=== PATIENT | female | born 1970 | race Caucasian/White ===

== ENCOUNTER 2016-11-07 17:15 | Outpatient (CLI) | payer MEDICAID ==
[~2016-11-07 17:15] MED LIST: ADVIL200 MG PO; ALBUTEROL-200 PUFFS/ IH; ALBUTEROL2 PUFFS/17 IN; ALBUTEROL2.5 MG/NEB IN; ALDACTONE 50MG50 MG PO; ALDACTONE100 MG PO; ALDACTONE50 MG PO; AQUATAB C 60 MG1 TER PO; ATIVAN GENERIC0.5 MG PO; ATIVAN0.5 MG PO; ATIVAN1 MG PO; AUGMENTIN XR 101 TER PO; AVELOX400 MG PO; BACTRIM DS 8001 TA1 PO; BACTRIM DS 8001 TAB PO; BENADRYL 25MG C25 MG PO; BENTYL10 MG PO; CALCARB 600600 MG PO; CALCIUM ACETATE 667 MG PO; CARAFATE1 GM PO; CIPRO 500MG TA500 MG PO; CIPROFLOXACIN500 MG PO; Ciprofloxacin250 MG OR; DARVOCET-N 1001 EACH PO; DARVOCET-N6 EACH/PAK PO; DITROPAN 5MG TAB5 MG PO; DOCUSATE NA250 MG PO; DOXYCYCLINE HY100 M3 PO; DULCOLAX 1010 MG/SUP PR; FENTANYL 1100 MCG/E1 TD; FLEXERIL10 MG PO; FOLIC ACID 1MG T1 MG PO; HALDOL 1MG. TABL1 MG PO; HALOPERIDOL1 MG PO; HYOSCYAMINE0.125 M1 FT; IBUPROFEN 600M600 MG PO; K-DUR 2020 MEQ PO; K-DUR 20MEQ TA20 MEQ PO; KEPPRA 500 MG500 MG PO; KEPPRA1000 MG PO; KEPPRA500 MG PO; KLONOPIN1 MG PO; LACTULOSE20 GM/30 M PO; LASIX 40MG. TAB40 MG PO; LASIX40 MG PO; LEVAQUIN500 MG PO; LEVETIRACETAM500 M2 PO; LEVOTHYROXIN0.025 MG PO; LORTAB 5/500 501 TAB PO; MACROBID 100MG100 MG PO; MAG-OX 400400 MG PO; MAG-OX 400MG T400 MG PO; MAGNESIUM400 M1 PO; MEDROL 4MG. DOSE4 MG PO; MORPHINE PO; MORPHINE SUL20 MG/ML PO; MORPHINE SUL20 MG/ML SL; MORPHINE SULFAT15 MG PO; MUCINEX600 M1 PO; MULTI VITAMINS1 TAB PO; NAPROSYN 500MG500 MG PO; NEUTRA-PHOS1 PDR; NEXIUM20 MG PO; NYSTATIN SU60 ML/BOT PO; OXAZEPAM 15MG C15 MG PO; OXYCODONE 5MG TA5 MG PO; PEPCID20 MG PO; PERCOCET 5/3251 EACH PO; PHENERGAN 25MG.25 M1 PO; PHENERGAN 25MG.25 MG PR; PHENERGAN25 M3 PO; POTASSIUM CHLO10 ME3 PO; POTASSIUM CHLO20 ME2 PO; POTASSIUM1 PDS; PROTONIX 40MG T40 MG PO; PROZAC40 MG PO; REMERON15 MG PO; RISPERDAL 1 MG T1 MG PO; TESSALON PERLE100 M1 PO; THIAMINE 100MG100 MG PO; TOPAMAX100 MG PO; TRENTAL 400MG400 MG PO; TYLENOL ES500 MG PO; ULTRAM50 MG PO; VICOPROFEN 7.51 TAB PO; VITAMIN B-1100 MG PO; XANAX2 MG PO; XIFAXAN550 MG PO; Xanax0.25 MG PO; ZANTAC 7575 MG PO; ZITHROMAX Z-PA250 M2 PO; ZOFRAN ODT4 MG PO; ZOFRAN4 MG; ZOFRAN4 MG PO; Zofran4 MG PO
[2016-11-07 18:00] VITALS: BP 106/71
[2016-11-07 22:10] VITALS: BP 116/95
== END 2016-11-07 22:35 | disposition home or self-care (01) ==
LOC: OUTP 17:15
DX: K70.30 Alcoholic cirrhosis of liver without ascites (principal); E87.6 Hypokalemia; F11.20 Opioid dependence, uncomplicated

== ENCOUNTER → 2016-11-08 | Outpatient (CLI) | payer MEDICAID ==
[2016-11-08 10:15] VITALS: BP 103/62
== END ==
LOC: COP 09:53
DX: E87.6 Hypokalemia (principal); K70.30 Alcoholic cirrhosis of liver without ascites; F11.20 Opioid dependence, uncomplicated

== ENCOUNTER → 2016-11-09 | Outpatient (CLI) | payer MEDICAID ==
[~2016-11-09] VITALS: Ht 157.5 cm; Wt 49.9 kg
[2016-11-09 10:15] VITALS: BP 98/64
[2016-11-09 12:30] VITALS: BP 90/60
[2016-11-09 15:13] VITALS: BP 86/62
== END ==
LOC: COP 09:57
DX: E87.6 Hypokalemia (principal); K70.30 Alcoholic cirrhosis of liver without ascites; F11.20 Opioid dependence, uncomplicated

== ENCOUNTER → 2016-11-10 | Outpatient (CLI) | payer MEDICAID ==
[2016-11-10 13:06] LABS: BUN 3 mg/dL (7-18)
[2016-11-10 13:13] LABS: GFR (ESTIMATED) 107 ML/MIN (59-)
== END ==
LOC: LAB 10:41
PROVIDERS: Nurse Practitioner Acute Care
DX: E87.6 Hypokalemia (principal); K70.30 Alcoholic cirrhosis of liver without ascites; F11.20 Opioid dependence, uncomplicated

== ENCOUNTER 2017-04-01 06:12 | Emergency (ER) | payer MEDICAID ==
[~2017-04-01] VITALS: Ht 157.5 cm; Wt 49.9 kg
--- NOTE | 2017-04-01 06:25 | Emergency Room Report ---
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 N Clinical Suspician of Infection? N Mental Status: 1 - Regular (Normal Baseline) Sepsis Risk:Possible Sepsis Risk Have you (or family members/close friends) recently traveled outside the [place]? N If Yes, where/when: Have you had exposure to infectious disease within the past month? N TB? Other? Specify: Source patient, RN notes reviewed, EMS, old records Exam Limitations no limitations Comment trip type fall last pm with lt knee pain and swelling and dec wt bearing this am Cardiac Chest Pain Chest pain indicative of cardiac No Timing/Duration this evening Severity moderate ALLERGIES Coded Allergies: Penicillins (NA-NAUSEA/VOMITING 05/21/16) butorphanol (From STADOL) (HIVES/ITCHING 05/21/16) codeine (NA-NAUSEA/VOMITING 05/21/16) Home Medications Active Scripts Levetiracetam (Keppra 500 Mg Tablet) 500 MG PO BID #20 TAB Prov: 02/07/14 Reported Medications Topiramate (Topamax) 50 MG PO QHS Furosemide (Lasix 40MG) 40 MG PO BID Spironolactone (Aldactone 100MG) 100 MG PO BID Fluoxetine Hcl (Prozac) 60 MG PO DAILY Potassium Chloride (K-Dur) 20 MEQ PO BID History Medical History General CAD? No Angina: Yes [place]: Yes Hypertension? No Hyperlipidemia? No CHF? Yes DVT? No PE? No COPD? No Asthma? No Anemia? Yes GERD? No Gastric ulcers? No GI Bleed? No Hernia? Yes Thyroid Problems? No Hypothyroidism? No CVA? No Seizures? Yes Diabetes? No Insulin Dependent: No Insulin Pump: No Home FSBS? No Renal Insuffiency? No End Stage Renal Disease? No UTI? Yes Stones? Yes BPH? No GB Disease: Yes Nephritic Syndrome? No Asplenia? No Hepatitis? Yes Sickle Cell Disease? No Arthritis? Yes Migraines? No Cataracts? No Glaucoma? No MRSA? No HIV? No TB? No Anxiety? Yes Depression? Yes Cancer? No More? Yes Additional hx: CIRRHOSIS OF THE LIVER Immunization Hx DT/Tetanus Unknown Flu 07/03/15 Pneumonia Received In Past Surgical Hx Previous Surgery?Y L OOPHERECTOMY S/P UTERINE SCRAPING X 2 LIVER BIOPSY ABLATION OF UTERUS. 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 Respiratory denies cough, denies shortness of breath, denies wheezing Cardiovascular denies chest pain, denies syncope Gastrointestinal denies abdominal pain, denies diarrhea, denies vomiting Genitourinary denies: dysuria, frequency, hesitancy, hematuria. Musculoskeletal denies back pain, joint pain, joint swelling, denies neck pain Skin denies rash Psychiatric/Neurological denies headache, denies seizure Physical Exam Vital Signs Vital Signs Date Time Temp Pulse Resp B/P Pulse O2 O2 Flow FiO2 Ox Delivery Rate 04/01 0706 93 20 104/74 96 / 0615 98.5 99 20 104/74 94 - WBC >12,000 or <4,000 or 10% bands? 2 or more SIRS Criteria Met? B/P:104/74 MAP:84 Creatinine >2.0? UA output<0.5ml/kg/hr for 2 hrs? Platelet count >100,000? Lactate >2.0mmol/1? INR >1.2 or PTT > than 60 sec? Evidence of Organ Dysfunction? Provider documented clinical suspician of infection? N Sepsis Criteria Count: 2 Sepsis Risk: Possible Sepsis Risk General Appearance no apparent distress Eye Exam - bilateral eye PERRL, bilateral eye EOMI Ear, Nose, Throat normal ENT inspection Neck supple Respiratory Status No: respiratory distress. 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 No Results/Orders Orders Procedure Date/time Status PELVIS AP ONLY 04/01 617 Active KNEE-3 VIEWS-LT 04/01 617 Active XRAY/CT/US XRAY/CT/US XRAY knee, pelvis XR interpretation by reviewed by me Xray Results no fracture seen Departure Departure Time of Disposition 06 Disposition DC Home or Self Care(routine) Clinical Impression Primary Impression: Left knee sprain Qualifiers: Encounter type: initial encounter Involved ligament of knee: unspecified ligament Qualified Code: S83.92XA - Sprain of unspecified site of left knee, initial encounter Condition STABLE Referrals Armando Villa MD (Family) Patient Instructions DI for Knee Sprain Additional Instructions ice and see pcp for follow up Discharge Counseling Counseled pt/family regarding diagnosis, test results, medications/RX, follow up needs Prescriptions Current Visit Scripts HYDROCODONE/ACETAMINOPHEN ([place] 5-325 Tablet) 1 TAB PO Q6HP PRN pain #5 TAB ED Critical Care Critical Care No at 0750
--- NOTE | 2017-04-01 06:25 | Emergency Room Report ---
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 N Clinical Suspician of Infection? N Mental Status: 1 - Regular (Normal Baseline) Sepsis Risk:Possible Sepsis Risk Have you (or family members/close friends) recently traveled outside the [place]? N If Yes, where/when: Have you had exposure to infectious disease within the past month? N TB? Other? Specify: Source patient, RN notes reviewed, EMS, old records Exam Limitations no limitations Comment trip type fall last pm with lt knee pain and swelling and dec wt bearing this am Cardiac Chest Pain Chest pain indicative of cardiac No Timing/Duration this evening Severity moderate ALLERGIES Coded Allergies: Penicillins (NA-NAUSEA/VOMITING 05/21/16) butorphanol (From STADOL) (HIVES/ITCHING 05/21/16) codeine (NA-NAUSEA/VOMITING 05/21/16) Home Medications Active Scripts Levetiracetam (Keppra 500 Mg Tablet) 500 MG PO BID #20 TAB Prov: 02/07/14 Reported Medications Topiramate (Topamax) 50 MG PO QHS Furosemide (Lasix 40MG) 40 MG PO BID Spironolactone (Aldactone 100MG) 100 MG PO BID Fluoxetine Hcl (Prozac) 60 MG PO DAILY Potassium Chloride (K-Dur) 20 MEQ PO BID History Medical History General CAD? No Angina: Yes [place]: Yes Hypertension? No Hyperlipidemia? No CHF? Yes DVT? No PE? No COPD? No Asthma? No Anemia? Yes GERD? No Gastric ulcers? No GI Bleed? No Hernia? Yes Thyroid Problems? No Hypothyroidism? No CVA? No Seizures? Yes Diabetes? No Insulin Dependent: No Insulin Pump: No Home FSBS? No Renal Insuffiency? No End Stage Renal Disease? No UTI? Yes Stones? Yes BPH? No GB Disease: Yes Nephritic Syndrome? No Asplenia? No Hepatitis? Yes Sickle Cell Disease? No Arthritis? Yes Migraines? No Cataracts? No Glaucoma? No MRSA? No HIV? No TB? No Anxiety? Yes Depression? Yes Cancer? No More? Yes Additional hx: CIRRHOSIS OF THE LIVER Immunization Hx DT/Tetanus Unknown Flu 07/03/15 Pneumonia Received In Past Surgical Hx Previous Surgery?Y L OOPHERECTOMY S/P UTERINE SCRAPING X 2 LIVER BIOPSY ABLATION OF UTERUS. 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 Respiratory denies cough, denies shortness of breath, denies wheezing Cardiovascular denies chest pain, denies syncope Gastrointestinal denies abdominal pain, denies diarrhea, denies vomiting Genitourinary denies: dysuria, frequency, hesitancy, hematuria. Musculoskeletal denies back pain, joint pain, joint swelling, denies neck pain Skin denies rash Psychiatric/Neurological denies headache, denies seizure Physical Exam Vital Signs Vital Signs Date Time Temp Pulse Resp B/P Pulse O2 O2 Flow FiO2 Ox Delivery Rate 04/01 0706 93 20 104/74 96 / 0615 98.5 99 20 104/74 94 - WBC >12,000 or <4,000 or 10% bands? 2 or more SIRS Criteria Met? B/P:104/74 MAP:84 Creatinine >2.0? UA output<0.5ml/kg/hr for 2 hrs? Platelet count >100,000? Lactate >2.0mmol/1? INR >1.2 or PTT > than 60 sec? Evidence of Organ Dysfunction? Provider documented clinical suspician of infection? N Sepsis Criteria Count: 2 Sepsis Risk: Possible Sepsis Risk General Appearance no apparent distress Eye Exam - bilateral eye PERRL, bilateral eye EOMI Ear, Nose, Throat normal ENT inspection Neck supple Respiratory Status No: respiratory distress. 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 No Results/Orders Orders Procedure Date/time Status PELVIS AP ONLY 04/01 617 Active KNEE-3 VIEWS-LT 04/01 617 Active XRAY/CT/US XRAY/CT/US XRAY knee, pelvis XR interpretation by reviewed by me Xray Results no fracture seen Departure Departure Time of Disposition 06 Disposition DC Home or Self Care(routine) Clinical Impression Primary Impression: Left knee sprain Qualifiers: Encounter type: initial encounter Involved ligament of knee: unspecified ligament Qualified Code: S83.92XA - Sprain of unspecified site of left knee, initial encounter Condition STABLE Referrals Armando Villa MD (Family) Patient Instructions DI for Knee Sprain Additional Instructions ice and see pcp for follow up Discharge Counseling Counseled pt/family regarding diagnosis, test results, medications/RX, follow up needs Prescriptions Current Visit Scripts HYDROCODONE/ACETAMINOPHEN ([place] 5-325 Tablet) 1 TAB PO Q6HP PRN pain #5 TAB ED Critical Care Critical Care No at 0750
--- OUTSIDE RECORDS SUMMARY | 2017-04-01 06:30 | External Medical Summary Rpt ---
Author Author [employer] Organization [employer] Address Unknown Phone Unavailable Purpose Continuity of Care Document - through 2016
--- OUTSIDE RECORDS SUMMARY | 2017-04-01 06:43 | External Medical Summary Rpt ---
Author Author , Organization [employer] Address Unknown Phone Unavailable Care Team Providers Care Senior Radiation Therapist Name Role Phone AIR METHODS KENT, Unavailable Unavailable AIR METHODS AIR METHODS KENT, Unavailable Unavailable AIR METHODS ALFARIS MOH, ALFARIS Unavailable Unavailable MOH ALFARIS MOH, ALFARIS Unavailable Unavailable MOH [facility] Unavailable Unavailable RESPONSE, [facility]ON[facility] Unavailable Unavailable RESPONSE, [facility] DEE GABRIELA, DEE Unavailable Unavailable GABRIELA BIRMING[place]AM TAMMY, B[place]MING[place]AM TAMMY Unavailable Unavailable DIAZ BRO, DIAZ Unavailable Unavailable BRO THOMAS TER, THOMAS Unavailable Unavailable TER THOMAS TER, THOMAS Unavailable Unavailable TER FRANK FRA, FRANK Unavailable Unavailable FRA FRANK FRA, FRANK Unavailable Unavailable FRA BEINEKE JERICHO, BEINEKE Unavailable Unavailable JERICHO BENSALEM-SIENNA BINA, Unavailable Unavailable BENSALEM-SIENNA BINA BESSON CHARLES, BESSON Unavailable Unavailable CHARLES BESSON CHARLES, BESSON Unavailable Unavailable CHARLES [facility] Unavailable Unavailable [facility], [facility] MUNOZ ALL, MUNOZ ALL Unavailable Unavailable [facility] Unavailable Unavailable [facility] [place] Unavailable Unavailable [facility] Unavailable Unavailable SERVICE, [facility] Unavailable Unavailable SERVICE, [facility] LEÓN KET, LEÓN KET Unavailable Unavailable LEÓN KET, LEÓN KET Unavailable Unavailable GREEN CAR, GREEN Unavailable Unavailable CAR [facility] Unavailable [facility], [facility] JR. NERI EMERY, Unavailable Unavailable JR. NERI EMERY JR. CHA, Unavailable Unavailable JR. NERI EMERY [facility] Unavailable Unavailable [facility], [facility] Unavailable Unavailable [facility], [facility] Unavailable Unavailable [facility], [facility] Unavailable Unavailable [facility], [facility] DHARMESH GRE, DHARMESH Unavailable Unavailable GRE DHARMESH GRE, DHARMESH Unavailable Unavailable GRE SLADE LAUREN, Unavailable Unavailable SLADE LAUREN SLADE LAUREN, Unavailable Unavailable SLADE LAUREN SLADE, MANGO, Unavailable Unavailable SLADE, MANGO DISANTIS CALVIN, Unavailable Unavailable DISANTIS CALVIN DISANTIS CALVIN, Unavailable Unavailable DISANTIS CAL[facility] DONOVITZ JAM, Unavailable Unavailable DONOVITZ JAM DONOVITZ JAM, Unavailable Unavailable DONOVITZ JAM DELEON CHARU, DELEON CHARU Unavailable Unavailable [facility] [place] [facility] ECKERLINE JR NERI, Unavailable Unavailable ECKERLINE JR NERI FALLUJI XAVIER, FALLUJI Unavailable Unavailable XAVIER [facility] Unavailable Unavailable TRANSPORTATION SER, [facility] ZION REJI, Unavailable Unavailable ZION REJI ZION REJI, Unavailable Unavailable ZION REJI MAKI, III WHIT, Unavailable Unavailable MAKI, III WHIT MAKI, III WHIT, Unavailable Unavailable MAKI, III WHIT EATON MAR, EATON MAR Unavailable Unavailable ARNULFO GUSTAVO, ARNULFO Unavailable Unavailable GUSTAVO ARNULFO, AMIRA S, Unavailable Unavailable ARNULFO, AMIRA S SHANIKA JETT, SHANIKA Unavailable Unavailable JETT SHANIKA JETT, SHANIKA Unavailable Unavailable JETT GERHARDSTEIN DON, Unavailable Unavailable GERHARDSTEIN DON ANYA, RONDAL E, Unavailable Unavailable ANYA, RONDAL E NANDO GUSTAVO, NANDO GUSTAVO Unavailable Unavailable PEREZ NA, PEREZ NA Unavailable Unavailable [facility] Unavailable Unavailable [facility] Unavailable Unavailable INC, [facility] Unavailable Unavailable HOSPITAL P, [facility] P NELSY, VICKI, NELSY, Unavailable Unavailable VICKI [facility], Unavailable Unavailable [facility] Unavailable [place]available [place], [facility] RAKESH MELVIN, RAKESH MELVIN Unavailable Unavailable ESCUDERO MAE, ESCUDERO MAE Unavailable Unavailable DEUTSCH MARTA, DEUTSCH Unavailable Unavailable MARTA [facility] ARTURO NICA, ARTURO Unavailable Unavailable NICA ARTURO NICA, ARTURO Unavailable Unavailable NICA ALBRECHT GUL, ALBRECHT GUL Unavailable Unavailable AMARJIT YANELY, AMARJIT YANELY Unavailable Unavailable AMARJIT YANELY, AMARJIT YANELY Unavailable [facility]available [facility] ROSE ASHU, ROSE ASHU Unavailable Unavailable ROSE ASHU, ROSE ASHU Unavailable Unavailable IBRAHIMA DWI, IBRAHIMA DWI Unavailable Unavailable IBRAHIMA JR DWI, IBRAHIMA Unavailable Unavailable JR DWI IBRAHIMA JR DWI, IBRAHIMA Unavailable Unavailable JR DWI [facility] Unavailable Unavailable [facility], [facility] JEREMIAS ART, JEREMIAS Unavailable Unavailable ART ROGER PETEY, Unavailable Unavailable ROGER PETEY ROGER PETEY, Unavailable Unavailable ROGER PETEY [facility] Unavailable Unavailable SERVICES, [facility] AUDRAMINatalie JR WHIT, Unavailable Unavailable MCKEMIE JR WHIT MCKEMIE JR WHIT, Unavailable Unavailable MCKEMIE JR WHIT MERHAR GAR, MERHAR Unavailable Unavailable GAR TUCKER KATHERIN, TUCKER Unavailable Unavailable KATHERIN TUCKER, TAZ P, Unavailable Unavailable TUCKER, TAZ P TAYLOR SHAWANDA, TAYLOR SHAWANDA Unavailable Unavailable TAYLOR SHAWANDA, TAYLOR SHAWANDA Unavailable Unavailable SHERYL KWA, SHERYL KWA Unavailable Unavailable SHERYL KWA, SHERYL KWA Unavailable [facility]available [facility] Un[facility]available PLL[facility], [facility] WINTER MCKENZIE, WINTER MCKENZIE Unavailable Unavailable WINTER MCKENZIE, WINTER MCKENZIE Unavailable [facility]available [facility] Unavailable Unavailable LAB[facility] MYRON GIANCARLO, Unavailable Unavailable MYRON GIANCARLO MYRON GIANCARLO, Unavailable Unavailable MYRON GIANCARLO CHEEMA AREN, CHEEMA AREN Unavailable Unavailable CHEEMA AREN, CHEEMA AREN Unavailable Unavailable KEYLA CALVIN, KEYLA Unavailable Unavailable CALVIN RICE THO, RICE THO Unavailable Unavailable BERLIN SHANEL, BERLIN Unavailable Unavailable SHANEL ECHAVARRIA, Unavailable Unavailable BHARATI ECHAVARRIA, Unavailable Unavailable BHARATI ECHAVARRIA [id number], Unavailable Unavailable [id number] Unavailable Unavailable [id number] [address] [id number], [facility] [id number] [address] [id number] RUSCHMAN DIANE, Unavailable Unavailable RUSCHMAN DIANE SADEK MOH, SADEK MOH Unavailable Unavailable DIAMOND WHIT, DIAMOND Unavailable Unavailable WHIT DIAMOND WHIT, DIAMOND Unavailable Unavailable WHIT PINO CHARLES, Unavailable Unavailable PINO CHARLES SCHULSTAD, ANA, Unavailable Unavailable SCHULSTAD, ANA GENARO DAVE, GENARO Unavailable Unavailable DAVE GENARO DAVE, GENARO Unavailable Unavailable DAVE GOMEZ J, GOMEZ J Unavailable Unavailable NGUYEN LAUREN, NGUYEN LAUREN Unavailable Unavailable SOKAN BAB, SOKAN BAB Unavailable Unavailable LIZETH ANTHONY, LIZETH Unavailable Unavailable ANTHONY [facility] Un[facility], [facility] Unavailable Unavailable [facility], [facility] SOTINGEANU JERICHO, Unavailable Unavailable SOTINGEANU JERICHO FIORDALIZA GABRIELA, FIORDALIZA Unavailable Unavailable GABRIELA GUILLERMO DARRYL, GUILLERMO Unavailable Unavailable DARRYL GUILLERMO DARRYL, GUILLERMO Unavailable Unavailable DARRYL COLLIER DON, Unavailable Unavailable COLLIER DON COLLIER DON, Unavailable Unavailable COLLIER DON COLLIER, DON R, Unavailable Unavailable COLLIER, DON R SALCEDO SCO, SALCEDO Unavailable Unavailable SCO SYMPHONY MOBILEX, Unavailable Unavailable SYMPHONY MOBILEX DIGNA MAR, Unavailable Unavailable SZHADLEYIO CATRACHO WYATT DEBBIE, EDMUNDO Unavailable Unavailable DEBBIE SURYA NERI, SURYA NERI Unavailable Unavailable CLARISSE NICOLE, CLARISSE Unavailable Unavailable NICOLE ANNIA JR JAM, ANNIA Unavailable Unavailable JR JAM HERMINIA STARK, Unavailable Unavailable HERMINIA STARK [facility] Un[facility]available [place] Unavailable Unavailable PSYCH, [facility] VILLARAN YUR, Unavailable Unavailable VILLARAN YUR VILLARAN YUR, Unavailable Unavailable VILLARAN YUR [facility] Unavailable Unavailable #[id number], [facility] # Unavailable Unavailable [id number], [facility] # [id number] WEHRMAN III WHIT, Unavailable Unavailable WEHRMAN III WHIT WEHRMAN III WHIT, Unavailable Unavailable WEHRMAN III WHIT WEHRMAN IIITAMARA, Unavailable Unavailable WEHRMAN III, TAMARA OCASIO, CARMEN OCASIO Unavailable Unavailable [facility] Unavailable Unavailable [facility], [facility] Unavailable Unavailable BOY IV A, Unavailable Unavailable BOY IV A LUCY GUSTAVO, LUCY Unavailable Unavailable GUSTAVO LUCY GUSTAVO, LUCY Unavailable Unavailable GUSTAVO Purpose Continuity of Care Document - 01-06-2008 through 2016 Problems Code Diagnosis DOS Provider Status I509 HEART 02-09-2017 [facility] FAILURE HOME UNSPECIFIED MEDICAL EQUIPME E876 HYPOKALEMIA 11-24-2016 [facility] K921 MELENA 07-11-2016 [facility] R1013 EPIGASTRIC 07-11-2016 [facility] R102 PELVIC AND 07-11-2016 [place] [facility]AL [facility] L509 URTICARIA 06-12-2016 [facility] UNSPECIFIED HOME MEDICAL EQUIPME I8500 ESOPHAGEAL 05-21-2016 [facility] VARICES ANESTH OF WITHOUT THE BLUE BLEEDING K3189 OTHER 05-21-2016 [place] MEDICAL DISEASES OF SERV STOMACH FOUNDATION AND DUODENUM K766 PORTAL 05-21-2016 [facility] HYPERTENSIO [facility] N INC R47370 EPILEPSY 04-22-2016 [facility] UNS NOT MEM HOSP INTRACT W/O INC STATUS EPILEPTICUS I864 GASTRIC 04-22-2016 [facility] VARICES [facility] N200 CALCULUS OF 04-22-2016 [facility] KIDNEY [facility] N3000 ACUTE 04-22-2016 [facility] CYSTITIS [facility] WITHOUT INC HEMATURIA R1012 LEFT UPPER 04-22-2016 [facility] PAIN PLLC G894 CHRONIC 03-26-2016 [facility]IN [facility] SYNDROME INTERNAL MED K5902 OUTLET 03-26-2016 [facility] DYSFUNCTION [facility] INTERNAL CONSTIPATIO MED N R69 ILLNESS 03-19-2016 [facility] UNSPECIFIED TRANSPORTAT ION SER F1022 ALCOHOL 03-14-2016 [facility] WITH PSYCH INTOXICATIO N I8510 SECONDARY 03-14-2016 [facility] ESOPHAGEAL [facility] HOSP VARICES PSYCH WITHOUT BLEEDING O34987 PAIN IN 03-14-2016 [place] UNSPECIFIED MEDICAL HIP IMAGING ASS J91551 PAIN IN 03-14-2016 [place] MEDICAL LEFT LEG SERV FOUNDATION R079 CHEST PAIN 03-14-2016 [place] UNSPECIFIED [facility]ICAL IMAGING ASS [id number] UNSPECIFIED 03-14-2016 [place] INJURY OF MEDICAL PELVIS IMAGING ASS INITIAL ENCOUNTER C0561BT UNS INJURY 03-14-2016 [place] MEDICAL LT LOWER SERV LEG INITIAL FOUNDATION ENCOUNTER T07 UNSPECIFIED 03-14-2016 AIR [facility] MULTIPLE [place] INJURIES K142XAB FALL FROM 03-14-2016 AIR [facility] OUT [place] OF/THROUGH BRIDGE INITIAL ENCNTR F50MOYC OTHER SPEC 03-14-2016 [place] MEDICAL EVENTS SERV UNDETERMINE [facility] D INTENT INIT ENC Z043 ENCOUNTER 03-14-2016 [place] MEDICAL EXAM & SERV OBSERVATION FOUNDATION FOLLOW OTH ACCIDENT R110 NAUSEA 02-16-2016 [facility] E860 DEHYDRATION 02-12-2016 [facility], [facility] K5289 OTH SPEC 02-12-2016 [facility] NONINFECTIV [facility]IANS, E [facility] GASTROENTER ITIS & COLITIS R109 UNSPECIFIED 02-12-2016 [facility] ABDOMINAL [facility] PAIN INTERNAL MED R1110 VOMITING 02-12-2016 [facility] ASS R112 NAUSEA WITH 02-12-2016 [facility] VOMITING [facility], UNSPECIFIED [facility] R197 DIARRHEA 02-12-2016 [facility] UNSPECIFIED AMBULANCE SERVICE R4182 ALTERED 02-12-2016 [facility] MENTAL [facility] STATUS INTERNAL UNSPECIFIED MED R0789 OTHER CHEST 01-02-2016 [facility] PAIN [facility]ICAL IM[facility] ASS R569 UNSPECIFIED 09-26-2015 [facility], CONVULSIONS [facility] M549 DORSALGIA 07-30-2015 [facility] UNSPECIFIED [place] INTERNAL MED N12 TUBULO-INTE 07-30-2015 [facility] RST [place] NEPHRITIS INTERNAL NOT SPEC MED ACUTE/CHRON J320 CHRONIC 07-21-2015 [place] MAXILLARY MEDICAL SINUSITIS IMAGING ASS J984 OTHER 07-21-2015 [place] DISORDERS MEDICAL OF LUNG IMAGING ASS S605LMW FRACTURE 07-21-2015 [facility] NASAL B[facility]ES [facility], INITIAL PLLC ENCOUNTER CLOSED FX S2457LE UNSPECIFIED 07-21-2015 [facility] INJURY OF PHYSICIANS, NOSE PLLC INITIAL ENCOUNTER E8279ZK MX FX RIBS 07-02-2015 [place] RT SIDE MEDICAL SUBSEQUENT IMAGING ASS ENC FX W/RTN HLNG [id number] UNDERDOS 07-02-2015 [facility] UNS RX MEDS [facility] P SUBSTANCE INITIAL ENC Z9111 PATIENTS 07-02-2015 [facility] NONCOMPLIAN [place] CE WITH INTERNAL DIETARY MED REGIMEN E15337 PT 07-02-2015 [facility] P MED REGIMEN OTH REASON J189 PNEUMONIA 06-30-2015 [facility] UNSPECIFIED PHYSICIANS, ORGANISM [facility] R05 COUGH 06-30-2015 [facility] 4280 CONGESTIVE 06-12-2015 [facility] HEART HOME FAILURE MEDICAL UNSPECIFIED EQUIPME 38237 OTHER 02-08-2015 [facility] CONVULSIONS AMBULANCE SERVICE 39150 NAUSEA 02-08-2015 [facility] ALONE AMBULANCE SERVICE 7245 UNSPECIFIED 01-28-2015 [facility] BACKACHE AMBULANCE SERVICE 32218 ABDOMINAL 01-28-2015 [facility] PAIN OTHER AMBULANCE SPECIFIED SERVICE SITE 18303 UNSPECIFIED 01-12-2015 [facility] OF VULVA 412 OLD 01-11-2015 [place] MEDICAL MYOCARDIAL SERV INFARCTION [facility] 7852 UNDIAGNOSED 01-11-2015 [place] MEDICAL CARDIAC SERV MURMURS [facility] 45730 SHORTNESS 01-11-2015 [place] MEDICAL OF BREATH SERV [facility] 6238 OTHER 01-10-2015 [place] SPECIFIED MEDICAL NONINFLAMMA IMAGING ASS TORY DISORDER VAGINA 7231 CERVICALGIA 09-25-2014 [facility] 8020 NASAL 09-25-2014 [place] BONES, MEDICAL CLOSED IMAGING ASS FRACTURE 89840 HEAD 09-25-2014 [place] INJURY, MEDICAL UNSPECIFIED IMAGING ASS 52955 INJURY OF 09-25-2014 [place] FACE AND MEDICAL NECK OTHER IMAGING ASS AND UNSPECIFIED 44338 OTHER 08-14-2014 [place] [facility] SPECIFIED SERV DISORDER OF FOUNDATION STOMACH AND DUODENUM 5715 CIRRHOSIS 08-14-2014 [place] [facility] OF LIVER SERV WITHOUT FOUNDATION MENTION OF ALCOHOL 496 CHRONIC 05-17-[address] [facility] [address] HOME OBSTRUCTION MEDICAL NEC EQUIPME 3384 CHRONIC 04-17-2014 [facility] PAIN VALLEY SYNDROME INTERNAL MED 78855 OTHER 04-17-2014 [facility] ASCITES VALLEY INTERNAL MED 33013 UNSPECIFIED 03-13-2014 [facility] VALLEY CONSTIPATIO INTERNAL N MED 07624 ABDOMINAL 03-06-2014 [facility] PAIN, LAUREN UNSPECIFIED SITE 2752 DISORDERS 03-05-2014 [facility] METABOLISM 2768 HYPOPOTASSE 03-05-2014 [facility] 5180 PULMONARY 03-05-2014 [facility] COLLAPSE LAUREN 5601 PARALYTIC 03-05-2014 [facility] ILEUS 59184 OTHER 03-05-2014 [facility] SPECIFIED LAUREN DISORDER OF INTESTINES 3319 UNSPECIFIED 02-07-2014 [facility] CEREBRAL LAUREN DEGENERATIO N 4730 CHRONIC 02-07-2014 [facility] MAXILLARY LAUREN SINUSITIS 4733 CHRONIC 02-07-2014 [facility] SPHENOIDAL LAUREN SINUSITIS 7840 HEADACHE 02-07-2014 [facility] AMBULANCE SERVICE 99536 CHEST PAIN 02-07-2014 [facility] UNSPECIFIED LAUREN 7881 DYSURIA 01-20-2014 [facility] [place] 5718 OTHER 01-19-2014 [facility] CHRONIC LAUREN NONALCOHOLI C LIVER DISEASE V1279 PERSONAL 01-19-2014 [facility] HISTORY OTH LAUREN DISEASES DIGESTIVE DISEASE V4579 OTHER 01-19-2014 [facility] ACQUIRED LAUREN ABSENCE OF ORGAN 5609 UNSPECIFIED 12-27-[address] [facility] [address] [facility] [facility] OBSTRUCTION 5728 OTHER 12-27-[address] [place] [address] [facility] CHRON[facility] LIVER DISEASE 5789 UNSPECIFIED 12-27-[address] [address] [facility] OF [facility] GASTROINTES TINAL TRACT 7197 DIFFICULTY 12-27-[address] [address] [facility] 19427 CRAMP OF 12-27-[address] [facility] 36040 UNSPEC 11-21-2013 [facility] EPILEPSY EXTENDED WITHOUT CARE SERV MENTION INTRACT EPILEPSY 4561 ESOPHAGEAL 11-21-2013 [facility] VARICES EXTENDED WITHOUT CARE SERV MENTION OF BLEEDING 00690 OTHER 10-06-2013 [facility] GENERAL MEDICAL SYMPTOMS RESPONSE 88200 OTHER 09-14-2013 [facility] SHAWANDA FUNCTIONAL DISORDERS OF INTESTINE 7873 FLATULENCE 09-14-2013 [facility] SHAWANDA ERUCTATION AND GAS PAIN 14851 OTHER 09-10-2013 DISANTIS DISEASES OF [place] LUNG NOT ELSEWHERE CLASSIFIED 7822 LOCALIZED 09-10-2013 MAKI, III SUPERFICIAL WHIT SWELLING MASS OR LUMP 7867 ABNORMAL 09-10-2013 DISANTIS CHEST [place] SOUNDS 52534 OTHER 09-10-2013 DISANTIS NONSPECIFIC [place] ABNORMAL FINDING OF LUNG FIELD 7242 LUMBAGO 08-31-2013 GENARO DAVE V5882 ENCOUNTER 08-23-2013 [facility] FITTING&ADJ GIANCARLO NON-VASCULA R CATHETER NEC 5119 UNSPECIFIED 08-17-2013 SHANIKA JETT PLEURAL EFFUSION 5723 PORTAL 08-17-2013 T[facility]OR SHAWANDA HYPERTENSIO N 72098 DISORDER OF 08-17-2013 [facility] SHAWANDA BONE AND CARTILAGE UNSPECIFIED V5881 FITTING AND 08-17-2013 SHANIKA JETT ADJUSTMENT OF VASCULAR CATHETER 5370 ACQUIRED 08-08-[address] HYPERTROPHI C PYLORIC STENOSIS 5647 MEGACOLON 08-08-[address] [place] [address] NAUSEA WITH 08-08-[address] VOMITING 65204 DIARRHEA 08-08-2013 GUILLERMO DARRYL 21421 ABDOMINAL 08-08-[address] PAIN, GENERALIZED 5679 UNSPECIFIED 06-27-2013 ARTURO NICA PERITONITIS 2819 UNSPECIFIED 06-18-2013 [facility] DEFICIENCY ANEMIA 2875 UNSPECIFIED 06-18-2013 [facility] [place] THROMBOCYTO PENIA 514 PULMONARY 06-17-2013 [facility] CONGESTION AND HYPOSTASIS 0389 UNSPECIFIED 06-12-2013 [place] MEDICAL SEPTICEMIA SERV FOUNDATION 37824 OTHER 06-12-2013 SHERYL KWA CONDITIONS OF BRAIN 75963 ACUTE 06-12-2013 [place] [facility] RESPIRATORY SERV FAILURE FOUNDATION 06134 SEVERE 06-12-2013 [place] [facility] SEPSIS SERV FOUNDATION 2763 ALKALOSIS 06-11-2013 LEÓN KET 2851 ACUTE 06-11-2013 LEÓN KET POSTHEMORRH AGIC ANEMIA 42462 ACUTE 06-10-2013 [facility] ESOPHAGITIS JERICHO 40324 OTHER 06-10-2013 MOY RINCON ESOPHAGITIS 5780 HEMATEMESIS 06-10-2013 [place] [facility] 7869 OTH 06-10-2013 DISANTIS SYMPTOMS [place] INVOLVING RESPIRATORY SYSTEM&CHES T 7954 OTHER 06-10-2013 [facility] NONSPECIFIC JERICHO ABNORMAL HISTOLOGICA L FINDINGS 4240 MITRAL 06-09-2013 [facility] EMERY JR. NERI DISORDERS 262 OTHER 06-08-2013 ALFARIS MOH SEVERE PROTEIN-STORM ORIE MALNUTRITIO N 2639 UNSPECIFIED 06-08-2013 IBRAHIMA JR DWI PROTEIN-STORM ORIE MALNUTRITIO N 4589 UNSPECIFIED 06-08-2013 [facility] AMBULANCE HYPOTENSION SERVICE 5990 URINARY 06-08-2013 ECKERLINE TRACT JR NERI INFECTION SITE NOT SPECIFIED 4941 BRONCHIECTA 06-07-2013 [facility] SIS WITH AMBULANCE ACUTE SERVICE EXACERBATIO N V4984 BED 06-07-2013 [facility] CONFINEMENT AMBULANCE STATUS SERVICE V550 ATTENTION 05-31-2013 [facility] TO LAUREN TRACHEOSTOM Y E8889 UNSPECIFIED 05-27-2013 [facility] FALL LAUREN 25210 METHICILLIN 04-16-2013 MCCATALINAMINatalie JR WHIT SUSCEPTIBLE STAPH INF CCE & UNS SITE 0413 KLEBSIELLA 04-16-2013 MCDIYA JR PNEUMONIAE WHIT INFECTION 5920 CALCULUS OF 04-16-2013 [facility] KIDNEY LAUREN 7905 OTHER 04-16-2013 [facility] NONSPECIFIC EMERGENCY ABNORMAL SERVICES SERUM ENZYME LEVELS 5533 DIAPHRAGMAT 03-14-2013 [facility] KIERSTEN W/O LAUREN MENTION OBSTRUCTION /GANGREN 96299 OTHER 03-14-2013 WEHRMAN III DYSPNEA [place] [address] OTHER ACUTE 02-01-2013 [facility] PAIN AMBULANCE SERVICE 27878 OTHER CHEST 02-01-2013 [facility] 9221 CONTUSION 02-01-2013 DONOVITZ OF CHEST JAM WALL 08527 HYPOCALCEMI 01-12-2013 [facility] EMERGENCY SERVICES 54332 PAP SMER 01-06-2013 [facility] CERV PETEY W/ATYPICAL SQUAMOUS CELLS UNDET V7231 ROUTINE 01-06-2013 [facility] GYNECOLOGIC PETEY AL EXAMINATION V7612 OTHER 01-06-2013 [facility] SCREENING REJI MAMMOGRAM 47488 OTHER 10-28-2012 [facility] [address] ESOPHAGEAL 10-01-2012 IBRAHIMA AGARWAL REFLUX DWI 7295 PAIN IN 10-01-2012 [facility] SOFT AMBULANCE TISSUES OF SERVICE LIMB 96931 ABDOMINAL/P 09-28-2012 [facility] SWELLING INC MASS/LUMP UNSPEC SITE 62565 OTHER 06-28-2012 WEHRMAN III MALAISE AND WHIT FATIGUE V850 BODY MASS 06-23-2012 BESSON CHARLES INDEX LESS THAN 19 ADULT 10487 OTHER 06-08-2012 [place] SPECIFIED MEDICAL DISORDERS IMAGING ASS OF BLADDER 5722 HEPATIC 05-17-2012 CHEEMA AREN ENCEPHALOPA THY 7823 EDEMA 05-16-2012 [facility] 6258 OTH SPEC 05-13-2012 JAY CHARLES SYMPTOM ASSOC W/FEMALE GENITAL ORGANS 50091 DEHYDRATION 04-09-2012 [facility] 5199 UNSPECIFIED 04-09-2012 [place] DISEASE OF MEDICAL IMAGING ASS RESPIRATORY SYSTEM 5283 CELLULITIS 04-01-2012 MCCATALINAMIE AND ABSCESS WHIT OF ORAL SOFT TISSUES 89563 REFLUX 04-01-2012 [facility] ESOPHAGITIS WHIT 5733 UNSPECIFIED 04-01-2012 BROOKCATALINAMIE JR HEPATITIS WHIT 2760 HYPEROSMOLA 02-12-2012 [facility] WHIT LITY AND/OR HYPERNATREM IA 5739 UNSPECIFIED 02-12-2012 [facility] WHIT DISORDER OF LIVER 51325 VOMITING 02-12-2012 [facility] P 92876 DIVERTICULO 01-30-2012 [place] SIS OF MEDICAL COLON IMAGING ASS 17914 PRECORDIAL 01-29-2012 [facility] PAIN AMBULANCE SERVICE 67312 ATROPHIC 01-28-2012 PATHOLOGY & GASTRITIS CYTOLOGY WITHOUT LAB MENTION OF HEMORRHAGE 01668 LOSS OF 12-22-2011 [facility] AGARWAL WEIGHT WHIT 20237 UNSPECIFIED 12-01-2011 [facility] EXOPHTHALMO HOSPI S 47803 MIOSIS , 12-01-2011 [facility] NOT DUE TO OF [place] MIOTICS HOSPI 42169 OTHER 12-01-2011 [facility] DISEASES OF [facility] NASAL HOSPI CAVITY AND SINUSES 436 ACUTE BUT 11-29-2011 [facility] ILL-DEFINED AMBULANCE SERVICE CEREBROVASC ULAR DISEASE 39617 ALTERED 11-29-2011 [facility] MENTAL AMBULANCE STATUS SERVICE 920 CONTUSION 11-20-2011 AMARJIT YANELY OF FACE SCALP AND NECK EXCEPT EYE 4289 UNSPECIFIED 11-18-2011 [facility] MEDICAL FAILURE RESPONSE 52303 ENCEPHALOPA 11-17-2011 DHARMESH GRE THY, UNSPECIFIED 28354 UNSPECIFIED 11-15-2011 VILLARAN SHOCK YUR 515 POSTINFLAMM 11-06-2011 [facility] FIBROSIS 50103 HEMATURIA 10-27-2011 [facility] UNSPECIFIED DON 86906 OTHER 10-27-2011 [facility] SPECIFIED DON DISORDERS OF URINARY TRACT 7969 OTHER 10-27-2011 [facility] NONSPECIFIC DON ABNORMAL FINDING 95944 ABDOMINAL 10-12-2011 [facility] PAIN, LEFT MEM HOSP UPPER INC QUADRANT 2512 HYPOGLYCEMI 09-06-2011 [facility] III A, WHIT UNSPECIFIED 77317 ABDOMINAL 09-06-2011 [facility]HR[facility] III PAIN, WHIT EPIGASTRIC 92915 PAIN IN 07-10-2011 [place] [facility] 65388 CONTUSION 07-10-2011 [facility] 5959 UNSPECIFIED 07-06-2011 [facility] [place] CYSTITIS 0700 VIRAL 05-06-2011 [facility] HEPATITIS A DON WITH HEPATIC COMA 7948 NONSPECIFIC 05-06-2011 [facility] ABNORMAL DON RESULTS LIVR FUNCTION STUDY 15254 PAIN IN 04-03-2011 [place] [facility] REGION AND THIGH 7906 OTHER 04-02-2011 [facility] ABNORMAL EMERGENCY BLOOD SERVICES CHEMISTRY 30788 FEVER 12-05-2010 [facility] UNSPECIFIED [facility] P 4139 OTHER AND 12-04-2010 [facility] UNSPECIFIED PHYSICIANS AN[facility] PECTORIS 7336 TIETZES 12-03-2010 [facility] DISEASE DON 67316 PAINFUL 12-03-2010 [facility] RESPIRATION DON 7862 COUGH 09-22-2010 [facility] 83650 UNSPECIFIED 05-01-2010 [facility] PART OF EMERGENCY CLOSED SERVICES FRACTURE OF ASSOCIATES CLAVICLE 7891 HEPATOMEGAL 04-10-2010 AMIRA, Y DON R 4659 ACUTE URIS 01-16-2010 [facility] OF DON R UNSPECIFIED SITE 4660 ACUTE 08-30-2008 SHETT[facility] BRONCHITIS Seguricel 61714 SPRAIN AND 08-30-2008 [facility] STRAIN OF [place] UNSPECIFIED NodeFly SITE OF FOOT 461 ACUTE 07-17-2008 [facility] 5589 OTH&UNSPEC 06-21-2008 [facility] GASTROENTER ITIS&COLITI S 0091 COLITIS 06-16-2008 [facility], ENTERIT&GAS DON R TROENTERIT INF ORIGIN 5929 UNSPECIFIED 06-16-2008 [facility] 599 OTHER 06-16-2008 [facility] AND URINARY TRACT 7880 RENAL COLIC 06-16-2008 [facility] V85 BODY MASS 06-16-2008 [facility] 5758 OTHER 04-04-2008 [facility], SPECIFIED ANA DISORDER OF GALLBLADDER 5769 UNSPECIFIED 04-04-2008 [facility], DISORDER ANA OF BILIARY TRACT 7802 SYNCOPE AND 03-28-2008 [facility], COLLAPSE ANA Medications Na ND Rx Da Fi Fi Am Da Di Ph RX Ph St me C No te ll ll ou ys ag ar # ys at rm s nt no ma ic us Or Da si cy ia de te s n re d ON 45 06 06 15 25 00 HO Ac DA 96 -0 -3 .0 00 ME ti NS 30 1- 0- 00 06 TO ve ET 53 20 20 08 WN RO 83 17 17 77 N 0 57 PH HC AR L MA 4 CY MG OF TA BL CY ET NT HI AN A FU 69 06 06 60 30 00 HO Ac RO 31 -0 -3 .0 00 ME ti SE 50 1- 0- 00 06 TO ve FL 11 20 20 08 WN DE 70 17 17 28 1 24 PH 40 AR MA MG CY TA OF BL ET CY NT HI AN A PA 31 05 06 30 30 00 HO Ac NT 72 -2 -2 .0 00 ME ti OP 20 5- 3- 00 06 TO ve RA 71 20 20 08 WN ZO 29 17 17 77 LE 0 56 PH AR SO MA D CY DR OF 20 CY MG NT HI TA AN B A HY 00 05 06 30 [address] 18 -2 -1 .0 00 ME ti OX 50 3- 6- 00 06 TO ve YZ 67 20 20 08 WN IN 40 17 17 75 E 5 53 PH PA AR M MA 25 CY MG OF CA CY P NT HI AN A TO 68 05 06 30 30 00 HO Ac PI 46 -2 -1 .0 00 ME ti RA 20 3- 6- 00 06 TO ve MA 15 20 20 08 WN TE 31 17 17 75 0 55 PH 50 AR MA MG CY TA OF BL ET CY NT HI AN A LE 68 05 06 60 30 00 HO Ac VE 00 -2 -1 .0 00 ME ti TI 10 3- 6- 00 06 TO ve RA 11 20 20 08 WN CE 50 17 17 58 TA 6 77 PH M AR 1, MA 00 CY 0 MG OF TA CY BL NT ET HI AN A FL 68 05 06 30 30 00 HO Ac UO 00 -2 -1 .0 00 ME ti XE 10 3- 6- 00 06 TO ve TI 12 20 20 08 WN NE 90 17 17 34 0 82 PH HC AR L MA 40 CY MG OF CA CY PS NT UL HI E AN A FL 50 05 06 16 30 00 HO Ac UT 38 -2 -1 .0 00 ME ti IC 30 3- 6- 00 06 TO ve 70 20 20 08 WN ON 01 17 17 34 E 6 81 PH CO AR OP MA CY 50 OF MC G CY SP NT RA HI Y AN A PO 68 05 06 60 30 00 HO Ac TA 00 -2 -1 .0 00 ME ti SS 10 3- 6- 00 06 TO ve IU 23 20 20 08 WN M 50 17 17 14 CL 0 18 PH AR ER MA CY 20 OF ME Q CY TA NT BL HI ET AN A SP 53 05 06 60 30 00 HO Ac IR 74 -2 -1 .0 00 ME ti ON 60 3- 6- 00 06 TO ve OL 51 20 20 08 WN AC 50 17 17 00 TO 1 01 PH NE AR MA 10 CY 0 MG OF TA CY BL NT ET HI AN A ON 45 05 05 15 25 00 HO Ac DA 96 -0 -2 .0 00 ME ti NS 30 3- 6- 00 06 TO ve ET 53 20 20 08 WN RO 83 17 17 12 N 0 47 PH HC AR L MA 4 CY MG OF TA BL CY ET NT HI AN A FU 00 05 05 60 30 00 HO Ac RO 37 -0 -2 .0 00 ME ti SE 80 3- 6- 00 06 TO ve FL 21 20 20 08 WN DE 61 17 17 28 0 24 PH 40 AR MA MG CY TA OF BL ET CY NT HI AN A TO 68 04 05 30 30 00 HO Ac PI 46 -2 -1 .0 00 ME ti RA 20 6- 9- 00 06 TO ve MA 15 20 20 08 WN TE 31 17 17 17 0 68 PH 50 AR MA MG CY TA OF BL ET CY NT HI AN A HY 00 04 05 [address] 18 -2 -1 .0 00 ME ti OX 50 6- 9- 00 06 TO ve YZ 67 20 20 08 WN IN 40 17 17 34 E 5 79 PH PA AR M MA 25 CY MG OF CA CY P NT HI AN A FL 50 04 05 16 30 00 HO Ac UT 38 -2 -1 .0 00 ME ti IC 30 6- 9- 00 06 TO ve 70 20 20 08 WN ON 01 17 17 34 E 6 81 PH CO AR OP MA CY 50 OF MC G CY SP NT RA HI Y AN A FL 68 04 05 30 30 00 HO Ac UO 00 -2 -1 .0 00 ME ti XE 10 6- 9- 00 06 TO ve TI 12 20 20 08 WN NE 90 17 17 34 0 82 PH HC AR L MA 40 CY MG OF CA CY PS NT UL HI E AN A LE 68 04 05 60 30 00 HO Ac VE 00 -2 -1 .0 00 ME ti TI 10 6- 9- 00 06 TO ve RA 11 20 20 08 WN CE 50 17 17 58 TA 6 77 PH M AR 1, MA 00 CY 0 MG OF TA CY BL NT ET HI AN A PA 31 04 05 30 30 00 HO Ac NT 72 -2 -1 .0 00 ME ti OP 20 6- 9- 00 06 TO ve RA 71 20 20 07 WN ZO 29 17 17 44 LE 0 02 PH AR SO MA D CY DR OF 20 CY MG NT HI TA AN B A SP 53 04 05 60 30 00 HO Ac IR 74 -2 -1 .0 00 ME ti ON 60 6- 9- 00 06 TO ve OL 51 20 20 08 WN AC 50 17 17 00 TO 1 01 PH NE AR MA 10 CY 0 MG OF TA CY BL NT ET HI AN A PO 68 04 05 60 30 00 HO Ac TA 00 -2 -1 .0 00 ME ti SS 10 6- 9- 00 06 TO ve IU 23 20 20 08 WN M 50 17 17 14 CL 0 18 PH AR ER MA CY 20 OF ME Q CY TA NT BL HI ET AN A ON 45 04 04 15 25 00 HO Ac DA 96 -0 -2 .0 00 ME ti NS 30 4- 8- 00 06 TO ve ET 53 20 20 08 WN RO 83 17 17 12 N 0 47 PH HC AR L MA 4 CY MG OF TA BL CY ET NT HI AN A FU 69 04 04 60 30 00 HO Ac RO 31 -0 -2 .0 00 ME ti SE 50 4- 8- 00 06 TO ve FL 11 20 20 08 WN DE 71 17 17 28 0 24 PH 40 AR MA MG CY TA OF BL ET CY NT HI AN A PA 31 03 04 30 30 00 HO Ac NT 72 -2 -1 .0 00 ME ti OP 20 0- 4- 00 06 TO ve RA 71 20 20 07 WN ZO 29 17 17 44 LE 0 02 PH AR SO MA D CY DR OF 20 CY MG NT HI TA AN B A PO 68 03 04 60 30 00 HO Ac TA 00 -2 -1 .0 00 ME ti SS 10 0- 4- 00 06 TO ve IU 23 20 20 08 WN M 50 17 17 14 CL 0 18 PH AR ER MA CY 20 OF ME Q CY TA NT BL HI ET AN A LE 68 03 04 60 30 00 HO Ac VE 00 -2 -1 .0 00 ME ti TI 10 0- 4- 00 06 TO ve RA 11 20 20 08 WN CE 50 17 17 34 TA 6 78 PH M AR 1, MA 00 CY 0 MG OF TA CY BL NT ET HI AN A HY 00 03 04 30 [address] 18 -2 -1 .0 00 ME ti OX 50 0- 4- 00 06 TO ve YZ 67 20 20 08 WN IN 40 17 17 34 E 5 79 PH PA AR M MA 25 CY MG OF CA CY P NT HI AN A FL 50 03 04 16 30 00 HO Ac UT 38 -2 -1 .0 00 ME ti IC 30 0- 4- 00 06 TO ve 70 20 20 08 WN ON 01 17 17 34 E 6 81 PH CO AR OP MA CY 50 OF MC G CY SP NT RA HI Y AN A TO 68 03 04 30 30 00 HO Ac PI 46 -2 -1 .0 00 ME ti RA 20 0- 4- 00 06 TO ve MA 15 20 20 08 WN TE 31 17 17 17 0 68 PH 50 AR MA MG CY TA OF BL ET CY NT HI AN A SP 53 03 04 60 30 00 HO Ac IR 74 -2 -1 .0 00 ME ti ON 60 0- 4- 00 06 TO ve OL 51 20 20 08 WN AC 50 17 17 00 TO 1 01 PH NE AR MA 10 CY 0 MG OF TA CY BL NT ET HI AN A FL 50 03 04 30 30 00 HO Ac UO 11 -2 -1 .0 00 ME ti XE 10 0- 4- 00 06 TO ve TI 64 20 20 07 WN NE 80 17 17 99 2 87 PH HC AR L MA 20 CY MG OF CA CY PS NT UL HI E AN A FU 69 03 04 60 30 00 HO Ac RO 31 -1 -0 .0 00 ME ti SE 50 0- 7- 00 06 TO ve FL 11 20 20 08 WN DE 71 17 17 28 0 24 PH 40 AR MA MG CY TA OF BL ET CY NT HI AN A ON 45 03 03 15 25 00 HO Ac DA 96 -0 -3 .0 00 ME ti NS 30 7- 1- 00 06 TO ve ET 53 20 20 08 WN RO 83 17 17 12 N 0 47 PH HC AR L MA 4 CY MG OF TA BL CY ET NT HI AN A SP 53 02 03 60 30 00 HO Ac IR 74 -2 -1 .0 00 ME ti ON 60 0- 7- 00 06 TO ve OL 51 20 20 08 WN AC 50 17 17 00 TO 1 01 PH NE AR MA 10 CY 0 MG OF TA CY BL NT ET HI AN A HY 00 02 03 30 [address] 18 -2 -1 .0 00 ME ti OX 50 0- 7- 00 06 TO ve YZ 67 20 20 07 WN IN 40 17 17 91 E 5 65 PH PA AR M MA 25 CY MG OF CA CY P NT HI AN A LE 68 02 03 60 30 00 HO Ac VE 00 -2 -1 .0 00 ME ti TI 10 0- 7- 00 06 TO ve RA 11 20 20 07 WN CE 50 17 17 81 TA 6 63 PH M AR 1, MA 00 CY 0 MG OF TA CY BL NT ET HI AN A FL 50 02 03 16 30 00 HO Ac UT 38 -2 -1 .0 00 ME ti IC 30 0- 7- 00 06 TO ve 70 20 20 07 WN ON 01 17 17 81 E 6 62 PH CO AR OP MA CY 50 OF MC G CY SP NT RA HI Y AN A FL 68 02 03 30 30 00 HO Ac UO 00 -2 -1 .0 00 ME ti XE 10 0- 7- 00 06 TO ve TI 12 20 20 07 WN NE 90 17 17 44 0 17 PH HC AR L MA 40 CY MG OF CA CY PS NT UL HI E AN A PA 31 02 03 30 30 00 HO Ac NT 72 -2 -1 .0 00 ME ti OP 20 0- 7- 00 06 TO ve RA 71 20 20 07 WN ZO 29 17 17 44 LE 0 02 PH AR SO MA D CY DR OF 20 CY MG NT HI TA AN B A TO 68 02 03 30 30 00 HO Ac PI 46 -2 -1 .0 00 ME ti RA 20 0- 7- 00 06 TO ve MA 15 20 20 08 WN TE 31 17 17 17 0 68 PH 50 AR MA MG CY TA OF BL ET CY NT HI AN A PO 68 02 03 60 30 00 HO Ac TA 00 -1 -1 .0 00 ME ti SS 10 4- 0- 00 06 TO ve IU 23 20 20 08 WN M 50 17 17 14 CL 0 18 PH AR ER MA CY 20 OF ME Q CY TA NT BL HI ET AN A ON 45 02 03 15 25 00 HO Ac DA 96 -1 -1 .0 00 ME ti NS 30 0- 0- 00 06 TO ve ET 53 20 20 08 WN RO 83 17 17 12 N 0 47 PH HC AR L MA 4 CY MG OF TA BL CY ET NT HI AN A LE 68 01 02 60 30 00 HO Ac VE 00 -2 -1 .0 00 ME ti TI 10 3- 7- 00 06 TO ve RA 11 20 20 07 WN CE 50 17 17 81 TA 6 63 PH M AR 1, MA 00 CY 0 MG OF TA CY BL NT ET HI AN A FL 50 01 02 16 30 00 HO Ac UT 38 -2 -1 .0 00 ME ti IC 30 3- 7- 00 06 TO ve 70 20 20 07 WN ON 01 17 17 81 E 6 62 PH CO AR OP MA CY 50 OF MC G CY SP NT RA HI Y AN A TO 68 01 02 30 30 00 HO Ac PI 46 -2 -1 .0 00 ME ti RA 20 3- 7- 00 06 TO ve MA 15 20 20 07 WN TE 31 17 17 61 0 82 PH 50 AR MA MG CY TA OF BL ET CY NT HI AN A HY 00 01 02 30 [address] 18 -2 -1 .0 00 ME ti OX 50 3- 7- 00 06 TO ve YZ 67 20 20 07 WN IN 40 17 17 91 E 5 65 PH PA AR M MA 25 CY MG OF CA CY P NT HI AN A FL 50 01 02 30 30 00 HO Ac UO 11 -2 -1 .0 00 ME ti XE 10 3- 7- 00 06 TO ve TI 64 20 20 07 WN NE 80 17 17 99 2 87 PH HC AR L MA 20 CY MG OF CA CY PS NT UL HI E AN A SP 53 01 02 60 30 00 HO Ac IR 74 -2 -1 .0 00 ME ti ON 60 3- 7- 00 06 TO ve OL 51 20 20 08 WN AC 50 17 17 00 TO 1 01 PH NE AR MA 10 CY 0 MG OF TA CY BL NT ET HI AN A PA 31 01 02 30 30 00 HO Ac NT 72 -2 -1 .0 00 ME ti OP 20 0- 7- 00 06 TO ve RA 71 20 20 07 WN ZO 29 17 17 44 LE 0 02 PH AR SO MA D CY DR OF 20 CY MG NT HI TA AN B A PO 00 01 02 30 30 00 HO Ac TA 78 -2 -1 .0 00 ME ti SS 11 0- 7- 00 06 TO ve IU 52 20 20 07 WN M 60 17 17 01 CL 1 87 PH AR ER MA CY 10 OF ME Q CY TA NT BL HI ET AN A HY 00 01 02 30 [address] 18 -0 -0 .0 00 ME ti OX 50 9- 3- 00 06 TO ve YZ 67 20 20 07 WN IN 40 17 17 91 E 5 65 PH PA AR M MA 25 CY MG OF CA CY P NT HI AN A ON 45 01 02 10 3 00 HO Ac DA 96 -0 -0 .0 00 ME ti NS 30 9- 3- 00 06 TO ve ET 53 20 20 07 WN RO 83 17 17 91 N 0 79 PH HC AR L MA 4 CY MG OF TA BL CY ET NT HI AN A FL 50 12 01 16 30 00 HO Ac UT 38 -2 -2 .0 00 ME ti IC 30 2- 0- 00 06 TO ve 70 20 20 07 WN ON 01 16 17 81 E 6 62 PH CO AR OP MA CY 50 OF MC G CY SP NT RA HI Y AN A LE 68 12 01 60 30 00 HO Ac VE 00 -2 -2 .0 00 ME ti TI 10 2- 0- 00 06 TO ve RA 11 20 20 07 WN CE 50 16 17 81 TA 6 63 PH M AR 1, MA 00 CY 0 MG OF TA CY BL NT ET HI AN A HY 00 12 01 [address] 18 -2 -2 .0 00 ME ti OX 50 2- 0- 00 06 TO ve YZ 67 20 20 07 WN IN 40 16 17 81 E 5 64 PH PA AR M MA 25 CY MG OF CA CY P NT HI AN A TO 68 12 01 30 30 00 HO Ac PI 46 -2 -2 .0 00 ME ti RA 20 2- 0- 00 06 TO ve MA 15 20 20 07 WN TE 31 16 17 61 0 82 PH 50 AR MA MG CY TA OF BL ET CY NT HI AN A PA 31 12 01 30 30 00 HO Ac NT 72 -2 -2 .0 00 ME ti OP 20 2- 0- 00 06 TO ve RA 71 20 20 07 WN ZO 29 16 17 44 LE 0 02 PH AR SO MA D CY DR OF 20 CY MG NT HI TA AN B A FL 68 12 01 30 30 00 HO Ac UO 00 -2 -2 .0 00 ME ti XE 10 2- 0- 00 06 TO ve TI 12 20 20 07 WN NE 90 16 17 22 0 38 PH HC AR L MA 40 CY MG OF CA CY PS NT UL HI E AN A SP 53 12 01 60 30 00 HO Ac IR 74 -2 -2 .0 00 ME ti ON 60 2- 0- 00 06 TO ve OL 51 20 20 05 WN AC 50 16 17 88 TO 1 68 PH NE AR MA 10 CY 0 MG OF TA CY BL NT ET HI AN A FU 69 12 01 18 90 00 HO Ac RO 31 -2 -2 0. 00 ME ti SE 50 2- 0- 00 06 TO ve FL 11 20 20 0 05 WN DE 71 16 17 88 0 65 PH 40 AR MA MG CY TA OF BL ET CY NT HI AN A HY 00 12 01 [address] 18 -1 -0 .0 00 ME ti OX 50 4- 9- 00 06 TO ve YZ 67 20 20 07 WN IN 40 16 17 76 E 5 31 PH PA AR M MA 25 CY MG OF CA CY P NT HI AN A LO 00 01 01 0 90 30 HO 40 BE Ac RA 78 -1 -1 0. ME 10 SS ti ZE 15 6- 6- 00 TO 50 ON ve PA 37 20 20 0 WN 6 M [address] 1 5 PH EP MG AR HE MA N TA CY A BL ET OF CY NT HI AN A SP 53 01 01 2 60 30 HO 60 BE Ac IR 74 -1 -1 0. ME 35 SS ti ON 60 6- 6- 00 TO 40 ON ve OL 51 20 20 0 WN 6 AC [address] TO 1 PH EP NE AR HE MA N 10 CY A 0 MG OF TA CY BL NT ET HI AN A FU 50 01 01 3 60 30 HO 60 BE Ac RO 74 -1 -1 0. ME 35 SS ti SE 20 6- 6- 00 TO 40 ON ve FL 10 20 20 0 WN 7 DE [address] 0 PH EP 40 AR HE MA N MG CY A TA OF BL ET CY NT HI AN A FL 50 01 01 3 90 30 HO 60 BE Ac UO 11 -1 -1 0. ME 35 SS ti XE 10 6- 6- 00 TO 40 ON ve TI 64 20 20 0 WN 8 NE [address] 2 PH EP HC AR HE L MA N 20 CY A MG OF CA CY PS NT UL HI E AN A MO 00 01 01 0 90 30 HO 20 BE Ac RP 05 -1 -1 0. ME 04 SS ti HI 40 6- 6- 00 TO 61 ON ve NE 23 20 20 0 WN [address] [place] 5 PH EP LF AR HE AT MA N E CY A IR OF 15 CY MG NT HI TA AN B A MO 00 12 12 0 90 30 HO 20 BE Ac RP 05 -1 -1 0. ME 04 SS ti HI 40 9- 9- 00 TO 32 ON ve NE 23 20 20 0 WN [address] [place] 5 PH EP LF AR HE AT MA N E CY A IR OF 15 CY MG NT HI TA AN B A LE 68 12 12 3 60 30 HO 60 BE Ac VE 00 -1 -1 0. ME 33 SS ti TI 10 7- 8- 00 TO 74 ON ve RA 11 20 20 0 WN 4 CE [address] TA 6 PH EP M AR HE 1, MA N 00 CY A 0 MG OF TA CY BL NT ET HI AN A LO 00 12 12 0 90 30 HO 40 BE Ac RA 78 -1 -1 0. ME 10 SS ti ZE 15 7- 8- 00 TO 16 ON ve PA 37 20 20 0 WN 1 M [address] 1 5 PH EP MG AR HE MA N TA CY A BL ET OF CY NT HI AN A 59 06 10 2 8[address] Ac 31 -0 -1 50 TE 65 EP ti 00 8- 5- 0 65 HE ve 57 20 20 AI NS 92 11 11 D 0 PH DO AR N MA R CY 03 93 8 # 03 93 FL 50 10 10 30 30 RI 90 GH Ac UO 11 -1 -1 .0 TE 27 AN ti XE 10 0- 0- 00 09 TA ve TI 64 20 20 AI NE 80 11 11 D RA 1 PH ME HC AR SH L MA 20 CY MG 03 93 CA 8 PS # UL 03 E 93 CO 23 10 10 90 30 RI 90 GH Ac OP 15 -1 -1 .0 TE 27 AN ti RA 50 0- 0- 00 10 TA ve NO 11 20 20 AI LO 01 11 11 D RA L 0 PH ME 10 AR SH MA MG CY TA 03 BL 93 ET 8 # 03 93 ZO 16 10 10 30 30 RI 90 GH Ac LP 71 -1 -1 .0 TE 27 AN ti ID 40 0- 0- 00 11 TA ve EM 62 20 20 AI 20 11 11 D RA TA 1 PH ME RT AR SH RA MA TE CY 10 03 93 MG 8 # TA 03 BL 93 ET CO 37 10 10 28 28 RI 90 GH Ac IL 00 -1 -1 .0 TE 27 AN ti OS 00 0- 0- 00 12 TA ve EC 45 20 20 AI 50 11 11 D RA OT 3 PH ME C AR SH 20 MA .6 CY MG 03 93 TA 8 BL # ET 03 93 HY 00 10 10 90 30 RI [address] 18 -1 -1 .0 TE 27 AN ti OX 50 0- 0- 00 13 TA ve YZ 61 20 20 AI IN 50 11 11 D RA E 1 PH ME PA AR SH M MA 50 CY MG 03 93 CA 8 P # 03 93 GE 00 10 10 60 30 RI 90 GH Ac OD 04 -1 -1 .0 TE 27 AN ti ON 93 0- 0- 00 14 TA ve 99 20 20 AI 80 06 11 11 D RA 0 PH ME MG AR SH MA CA CY PS UL 03 E 93 8 # 03 93 00 09 09 12 2 RI 90 GR Ac 60 -2 -2 .0 TE 03 AY ti 33 4- 4- 00 13 ve 88 20 20 AI RO 12 11 11 D BE 8 PH RT AR B MA CY 03 93 8 # 03 93 PA 00 09 09 30 30 RI 90 GR Ac NT 00 -2 -2 .0 TE 03 AY ti OP 80 4- 4- 00 14 ve RA 60 20 20 AI RO ZO 70 11 11 D BE LE 1 PH RT AR B SO MA D CY DR 03 40 93 8 MG # 03 TA 93 B CO 45 09 09 20 5 RI 90 WE Ac OM 80 -2 -2 .0 TE 07 HR ti ET 20 4- 4- 00 07 MA ve LOPEZ 75 20 20 AI N ZI 93 11 11 D II NE 0 PH I AR WI 25 MA LL CY IA MG M 03 E [place] 93 PP 8 OS # IT 03 OR 93 Y FL 00 04 09 [address] Ac UO 09 -1 -0 .0 TE 97 EP ti XE 37 8- 6- 00 89 HE ve TI 19 20 20 AI NS NE 85 11 11 D 6 PH DO HC AR N L MA R 40 CY MG 03 93 CA 8 PS # UL 03 E 93 LA 00 08 08 3 [address] 60 -0 -2 3. TE 41 EP ti UL 31 9- 7- 00 55 HE ve OS 37 20 20 0 AI NS E 85 11 11 D 10 9 PH DO AR N GM MA R /1 CY 5 ML 03 93 SO 8 MYRIAM # TI 03 ON 93 NE 00 08 08 3 [address] Ac XI 18 -0 -1 .0 TE 41 EP ti UM 65 9- 6- 00 50 HE ve 04 [address] 03 11 11 D 1 PH DO 40 AR N MA R MG CY CA 03 PS 93 UL 8 E # 03 93 GE 00 08 08 3 [address] Ac OD 04 -0 -1 .0 TE 41 EP ti ON 93 9- 6- 00 52 HE ve 99 20 20 AI NS 80 06 11 11 D 0 PH DO MG AR N MA R CA CY PS UL 03 E 93 8 # 03 93 FL 00 04 07 4 [address] Ac UO 09 -1 -2 .0 TE 97 EP ti XE 37 8- 7- 00 89 HE ve TI 19 20 20 AI NS NE 85 11 11 D 6 PH DO HC AR N L MA R 40 CY MG 03 93 CA 8 PS # UL 03 E 93 59 06 07 2 8. [address] Ac 31 -0 -2 50 TE 65 EP ti 00 8- 7- 0 65 HE ve 57 20 20 AI NS 92 11 11 D 0 PH DO AR N MA R CY 03 93 8 # 03 93 HY 00 07 07 90 30 RI [address] 18 -2 -2 .0 TE 16 AN ti OX 50 0- 0- 00 96 TA ve YZ 61 20 20 AI IN 50 11 11 D RA E 1 PH ME PA AR SH M MA 50 CY MG 03 93 CA 8 P # 03 93 [place] 53 07 07 2. 1 RI 89 GH Ac LF 74 -2 -2 00 TE 16 AN ti AM 60 0- 0- 0 98 TA ve ET 27 20 20 AI HO 20 11 11 D RA XA 5 PH ME ZO AR SH LE MA -T CY MP 03 DS 93 8 TA # BL 03 ET 93 NE 00 07 07 30 30 RI 89 GH Ac XI 18 -2 -2 .0 TE 17 AN ti UM 65 0- 0- 00 00 TA ve [address] 03 11 11 D RA 1 PH ME 40 AR SH MA MG CY CA 03 PS 93 UL 8 E # 03 93 LA 00 07 07 18 31 RI [address] 60 -2 -2 92 TE 17 AN ti UL 31 0- 0- .0 01 TA ve OS 37 20 20 00 AI E 85 11 11 D RA 10 9 PH ME AR SH GM MA /1 CY 5 ML 03 93 SO 8 MYRIAM # TI 03 ON 93 GE 00 07 07 60 30 RI 89 GH Ac OD 04 -2 -2 .0 TE 18 AN ti ON 93 0- 0- 00 09 TA ve 99 20 20 AI 80 06 11 11 D RA 0 PH ME MG AR SH MA CA CY PS UL 03 E 93 8 # 03 93 NE 00 02 06 5 [address] Ac XI 18 -2 -1 .0 TE 16 EP ti UM 65 1- 8- 00 50 HE ve 04 [address] 03 11 11 D 1 PH DO 40 AR N MA R MG CY CA 03 PS 93 UL 8 E # 03 93 LO 00 11 06 6 [address] Ac RA 78 -2 -0 .0 TE 92 EP ti TA 15 2- 8- 00 00 HE ve DI 07 20 20 AI NS NE 70 10 11 D 1 PH DO 10 AR N MA R MG CY TA 03 BL 93 ET 8 # 03 93 59 06 06 2 8. [address] Ac 31 -0 -0 50 TE 65 EP ti 00 8- 8- 0 65 HE ve 57 20 20 AI NS 92 11 11 D 0 PH DO AR N MA R CY 03 93 8 # 03 93 NE 00 02 04 5 [address] Ac XI 18 -2 -2 .0 TE 16 EP ti UM 65 1- 1- 00 50 HE ve 04 [address] 03 11 11 D 1 PH DO 40 AR N MA R MG CY CA 03 PS 93 UL 8 E # 03 93 FL 00 04 04 4 [address] Ac UO 09 -1 -1 .0 TE 97 EP ti XE 37 8- 8- 00 89 HE ve TI 19 20 20 AI NS NE 85 11 11 D 6 PH DO HC AR N L MA R 40 CY MG 03 93 CA 8 PS # UL 03 E 93 RA 00 03 04 2 [address] Ac NI 17 -0 -1 .0 TE 27 EP ti TI 24 1- 7- 00 99 HE ve DI 35 20 20 AI NS NE 74 11 11 D 9 PH DO 15 AR N 0 MA R MG CY TA 03 BL 93 ET 8 # 03 93 NE 00 02 03 5 [address] Ac XI 18 -2 -2 .0 TE 16 EP ti UM 65 1- 3- 00 50 HE ve 04 [address] 03 11 11 D 1 PH DO 40 AR N MA R MG CY CA 03 PS 93 UL 8 E # 03 93 CI 65 03 03 6. 3 RI 87 WE Ac CO 86 -1 -1 00 TE 43 HR ti OF 20 0- 0- 0 68 MA ve LO 07 20 20 AI N XA 60 11 11 D II CI 1 PH I N AR WI HC MA LL L CY IA 25 M 0 03 E MG 93 8 TA # B 03 93 IB 53 03 03 [address] Ac UP 74 -0 -0 .0 TE 42 EP ti RO 60 9- 9- 00 89 HE ve FE 46 20 20 AI NS N 50 11 11 D 60 5 PH DO 0 AR N MG MA R CY TA BL 03 ET 93 8 # 03 93 00 03 03 [address] Ac 08 -0 -0 .0 TE 43 EP ti 51 9 9- 00 01 HE ve 71 20 20 AI NS 80 11 11 D 2 PH DO AR N MA R CY 03 93 8 # 03 93 CO 00 03 03 [address] Ac OM 60 -0 -0 .0 TE 43 EP ti ET 35 9 9- 00 12 HE ve LOPEZ 43 20 20 AI NS ZI 82 11 11 D NE 1 PH DO AR N 25 MA R CY MG 03 TA 93 BL 8 ET # 03 93 RA 00 03 03 2 [address] Ac NI 17 -0 -0 .0 TE 27 EP ti TI 24 1- 1- 00 99 HE ve DI 35 20 20 AI NS NE 74 11 11 D 9 PH DO 15 AR N 0 MA R MG CY TA 03 BL 93 ET 8 # 03 93 LO 00 11 02 6 [address] Ac RA 78 -2 -2 .0 TE 92 EP ti TA 15 2- 1- 00 00 HE ve DI 07 20 20 AI NS NE 70 10 11 D 1 PH DO 10 AR N MA R MG CY TA 03 BL 93 ET 8 # 03 93 NE 00 02 02 5 [address] Ac XI 18 -2 -2 .0 TE 16 EP ti UM 65 1- 1- 00 50 HE ve 04 [address] 03 11 11 D 1 PH DO 40 AR N MA R MG CY CA 03 PS 93 UL 8 E # 03 93 NE 00 07 01 5 [address] Ac XI 18 -1 -2 .0 TE 38 EP ti UM 65 4- 3- 00 71 HE ve 04 [address] 03 10 11 D 1 PH DO 40 AR N MA R MG CY CA 03 PS 93 UL 8 E # 03 93 AL 00 11 01 [address] Ac CO 60 -0 -2 .0 TE 61 EP ti AZ 32 1- 3- 00 79 HE ve OL 12 20 20 AI NS AM 82 10 11 D 1 PH DO 0. AR N 5 MA R MG CY TA 03 BL 93 ET 8 # 03 93 NE 00 07 12 5 [address] Ac XI 18 -1 -2 .0 TE 38 EP ti UM 65 4- 7- 00 71 HE ve 04 [address] 03 10 10 D 1 PH DO 40 AR N MA R MG CY CA 03 PS 93 UL 8 E # 03 93 AL 00 11 12 3 [address] Ac CO 60 -0 -2 .0 TE 61 EP ti AZ 32 1- 6- 00 79 HE ve OL 12 20 20 AI NS AM 82 10 10 D 1 PH DO 0. AR N 5 MA R MG CY TA 03 BL 93 ET 8 # 03 93 59 12 12 8. 17 RI 86 WE Ac 31 -2 -2 50 TE 37 HR ti 00 6- 6- 0 48 MA ve 57 20 20 AI N 92 10 10 D II 0 PH I AR WI MA LL CY IA M 03 E 93 8 # 03 93 CO 00 12 12 12 3 RI 86 WE Ac OM 60 -2 -2 .0 TE 37 HR ti ET 35 6- 6- 00 49 MA ve LOPEZ 43 20 20 AI N ZI 82 10 10 D II NE 1 PH I AR WI 25 MA LL CY IA MG M 03 E TA 93 BL 8 ET # 03 93 LO 00 11 11 6 [address] Ac RA 78 -2 -2 .0 TE 92 EP ti TA 15 2- 2- 00 00 HE ve DI 07 20 20 AI NS NE 70 10 10 D 1 PH DO 10 AR N MA R MG CY TA 03 BL 93 ET 8 # 03 93 NE 00 07 11 [address] Ac XI 18 -1 -2 .0 TE 38 EP ti UM 65 4- 0- 00 71 HE ve 04 [address] 03 10 10 D 1 PH DO 40 AR N MA R MG CY CA 03 PS 93 UL 8 E # 03 93 LO 00 06 10 2 [address] Ac RA 78 -2 -0 .0 TE 94 EP ti TA 15 5- 2- 00 21 HE ve DI 07 20 20 AI NS NE 70 10 10 D 1 PH DO 10 AR N MA R MG CY TA 03 BL 93 ET 8 # 03 93 NE 00 07 10 5 [address] Ac XI 18 -1 -0 .0 TE 38 EP ti UM 65 4- 2- 00 71 HE ve 04 [address] 03 10 10 D 1 PH DO 40 AR N MA R MG CY CA 03 PS 93 UL 8 E # 03 93 LO 00 06 09 2 [address] Ac RA 78 -2 -0 .0 TE 94 EP ti TA 15 5- 5- 00 21 HE ve DI 07 20 20 AI NS NE 70 10 10 D 1 PH DO 10 AR N MA R MG CY TA 03 BL 93 ET 8 # 03 93 NE 00 07 09 5 [address] Ac XI 18 -1 -0 .0 TE 38 EP ti UM 65 4- 5- 00 71 HE ve 04 [address] 03 10 10 D 1 PH DO 40 AR N MA R MG CY CA 03 PS 93 UL 8 E # 03 93 RA 00 09 08 5 [address] Ac NI 17 -1 -2 .0 TE 89 EP ti TI 24 1- 2- 00 67 HE ve DI 35 20 20 AI NS NE 74 09 10 D 9 PH DO 15 AR N 0 MA R MG CY TA 03 BL 93 ET 8 # 03 93 00 08 08 20 5 RI 84 CO Ac 60 -1 -1 .0 TE 56 OP ti 35 4- 4- 00 45 ER ve 46 20 20 AI 82 10 10 D SETH 8 PH HN AR G MA CY 03 93 8 # 03 93 00 08 [address] Ac 60 -0 -0 .0 TE 46 EP ti 35 6- 6- 00 50 HE ve 46 20 20 AI NS 82 10 10 D 8 PH DO AR N MA R CY 03 93 8 # 03 93 00 08 08 8. 2 RI 84 GA Ac 60 -0 -0 00 TE 42 IN ti 35 4- 4- 0 17 EY ve 46 20 20 AI 82 10 10 D FL 8 PH CH AR AE MA L CY S 03 93 8 # 03 93 NE 00 07 08 5 [address] Ac XI 18 -1 -0 .0 TE 38 EP ti UM 65 4- 1- 00 71 HE ve 04 [address] 03 10 10 D 1 PH DO 40 AR N MA R MG CY CA 03 PS 93 UL 8 E # 03 93 CI 13 07 07 5 [address] Ac TA 66 -1 -1 .0 TE 15 EP ti LO 80 4- 4- 00 91 HE ve CO 01 20 20 AI NS AM 10 10 10 D 1 PH DO HB AR N R MA R 40 CY MG 03 93 TA 8 BL # ET 03 93 NE 00 03 06 3 [address] Ac XI 18 -2 -2 .0 TE 64 EP ti UM 65 2- 5- 00 44 HE ve 04 [address] 03 10 10 D 1 PH DO 40 AR N MA R MG CY CA 03 PS 93 UL 8 E # 03 93 LO 00 06 06 2 [address] Ac RA 78 -2 -2 .0 TE 94 EP ti TA 15 5- 5- 00 21 HE ve DI 07 20 20 AI NS NE 70 10 10 D 1 PH DO 10 AR N MA R MG CY TA 03 BL 93 ET 8 # 03 93 NE 00 03 05 3 [address] Ac XI 18 -2 -2 .0 TE 64 EP ti UM 65 2- 2- 00 44 HE ve 04 [address] 03 10 10 D 1 PH DO 40 AR N MA R MG CY CA 03 PS 93 UL 8 E # 03 93 [place] 00 04 04 [address] Ac LF 60 -2 -2 .0 TE 14 EP ti AM 35 6- 6- 00 10 HE ve ET 78 20 20 AI NS HO 12 10 10 D XA 8 PH DO ZO AR N LE MA R -T CY MP 03 DS 93 8 TA # BL 03 ET 93 NE 00 03 04 3 [address] Ac XI 18 -2 -2 .0 TE 64 EP ti UM 65 2- 1- 00 44 HE ve 04 [address] 03 10 10 D 1 PH DO 40 AR N MA R MG CY CA 03 PS 93 UL 8 E # 03 93 AZ 59 04 04 6. [address] Ac IT 76 -2 -2 00 TE 07 EP ti HR 23 1- 1- 0 12 HE ve OM 06 20 20 AI NS YC 00 10 10 D IN 1 PH DO AR N 25 MA R 0 CY MG 03 TA 93 BL 8 ET # 03 93 LO 00 04 04 [address] Ac RA 78 -2 -2 .0 TE 07 EP ti TA 15 1- 1- 00 13 HE ve DI 07 20 20 AI NS NE 70 10 10 D 1 PH DO 10 AR N MA R MG CY TA 03 BL 93 ET 8 # 03 93 NE 00 03 03 3 [address] Ac XI 18 -2 -2 .0 TE 64 EP ti UM 65 2- 2- 00 44 HE ve 04 [address] 03 10 10 D 1 PH DO 40 AR N MA R MG CY CA 03 PS 93 UL 8 E # 03 93 FL 00 12 03 3 [address] Ac UO 09 -2 -2 .0 L- 51 EP ti XE 37 8- 2- 00 MA 98 HE ve TI 19 20 20 RT 0 NS NE 85 09 10 6 PH DO HC AR N L MA R 40 CY # MG 10 CA 05 PS 91 UL E RA 00 09 03 5 [address] Ac NI 17 -1 -0 .0 TE 89 EP ti TI 24 1- 7- 00 67 HE ve DI 35 20 20 AI NS NE 74 09 10 D 9 PH DO 15 AR N 0 MA R MG CY TA 03 BL 93 ET 8 # 03 93 RA 00 09 02 01 [address] Ac NI 17 -1 -1 .0 TE 89 EP ti TI 24 1- 1- 00 67 HE ve DI 35 20 20 AI NS NE 74 09 10 D 9 PH DO 15 AR N 0 M R MG #3 93 TA 8 BL ET FL 00 12 02 01 [address] Ac UO 09 -2 -1 .0 L- 51 EP ti XE 37 8- 1- 00 MA 98 HE ve TI 19 20 20 RT 0 NS NE 85 09 10 6 PH DO HC AR N L MA R 40 CY MG #5 91 CA PS UL E FL 00 12 01 00 [address] Ac UO 09 -2 -1 .0 L- 51 EP ti XE 37 8- 4- 00 MA 98 HE ve TI 19 20 20 RT 0 NS NE 85 09 10 6 PH DO HC AR N L MA R 40 CY MG #5 91 CA PS UL E NE 00 12 12 00 [address] Ac XI 18 -1 -3 .0 L- 50 EP ti UM 65 8- 1- 00 MA 82 HE ve 04 [address] 03 09 09 1 PH DO 40 AR N MA R MG CY CA #5 PS 91 UL E RA 00 09 12 00 [address] Ac NI 17 -1 -0 .0 TE 89 EP ti TI 24 1- 3- 00 67 HE ve DI 35 20 20 AI NS NE 74 09 09 D 9 PH DO 15 AR N 0 M R MG #3 93 TA 8 BL ET FL 00 08 12 00 [address] Ac UO 09 -2 -0 .0 L- 33 EP ti XE 37 2- 3- 00 MA 48 HE ve TI 19 20 20 RT 0 NS NE 85 09 09 6 PH DO HC AR N L MA R 40 CY MG #5 91 CA PS UL E AL 59 09 11 02 [address] Ac CO 76 -1 -0 .0 TE 93 EP ti AZ 23 1- 5- 00 51 HE ve OL 72 20 20 AI NS AM 00 09 09 D 1 PH DO 0. AR N 5 M R MG #3 93 TA 8 BL ET NE 00 02 10 01 [address] Ac XI 18 -1 -2 .0 L- 35 EP ti UM 65 6- 2- 00 MA 93 HE ve 04 [address] 03 09 09 1 PH DO 40 AR N MA R MG CY CA #5 PS 91 UL E AL 59 09 10 01 [address] Ac CO 76 -1 -0 .0 TE 93 EP ti AZ 23 1- 8- 00 51 HE ve OL 72 20 20 AI NS AM 00 09 09 D 1 PH DO 0. AR N 5 M R MG #3 93 TA 8 BL ET NE 00 02 09 [address] Ac XI 18 -1 -2 .0 L- 35 EP ti UM 65 6- 4- 00 MA 93 HE ve 04 [address] 03 09 09 1 PH DO 40 AR N MA R MG CY CA #5 PS 91 UL E AL 59 09 09 00 60 20 RI 79 ST Ac CO 76 -1 -2 .0 TE 93 EP ti AZ 23 1- 4- 00 51 HE ve OL 72 20 20 AI NS AM 00 09 09 D 1 PH DO 0. AR N 5 M R MG #3 93 TA 8 BL ET NE 00 02 06 03 [address] Ac XI 18 -1 -[address] 49 EP ti UM 65 6- 4- 00 SI 48 HE ve 04 [address] 03 09 09 1 PH DO 40 AR N MA R MG CY CA OF PS CY UL NT E HI AN A 00 05 06 00 12 3 EA 12 GA Ac 40 -2 -[address] 87 IN ti 61 4- 4- 00 SI 11 EY ve 77 20 20 DE 20 09 09 FL 5 PH CH AR AE MA L CY S OF CY NT HI AN A NE 00 02 05 02 [address] Ac XI 18 -1 -[address] 49 EP ti UM 65 6- 7- 00 SI 48 HE ve 04 20 20 DE NS 03 09 09 1 PH DO 40 AR N MA R MG CY CA OF PS CY UL NT E HI AN A FL 00 09 04 02 [address] Ac UO 09 -2 -2 .0 TE 05 EP ti XE 37 0- 3- 00 94 HE ve TI 19 20 20 AI NS NE 85 08 09 D 6 PH DO HC AR N L M R 40 #3 93 MG 8 CA PS UL E CO 00 04 04 00 [address] Ac OM 78 -0 -[address] 26 EP ti ET 11 8- 3- 00 SI 05 HE ve LOPEZ 83 20 20 DE NS ZI 01 09 09 NE 0 PH DO AR N 25 MA R CY MG OF TA CY BL NT ET HI AN A NE 00 02 03 01 [address] Ac XI 18 -1 -[address] 49 EP ti UM 65 6- 6- 00 SI 48 HE ve 04 20 20 DE NS 03 09 09 1 PH DO 40 AR N MA R MG CY CA OF PS CY UL NT E HI AN A FL 00 09 02 01 [address] Ac UO 09 -2 -2 .0 TE 05 EP ti XE 37 0- 6- 00 94 HE ve TI 19 20 20 AI NS NE 85 08 09 D 6 PH DO HC AR N L M R 40 #3 93 MG 8 CA PS UL E NE 00 02 02 00 [address] Ac XI 18 -1 -[address] 49 EP ti UM 65 6- 6- 00 SI 48 HE ve 04 [address] 03 09 09 1 PH DO 40 AR N MA R MG CY CA OF PS CY UL NT E HI AN A NE 00 09 01 03 [address] Ac XI 18 -2 -3 .0 TE 05 EP ti UM 65 0- 0- 00 98 HE ve 04 20 20 AI EMILE MULLEN 03 08 09 D 1 PH DO 40 AR N M R MG #3 93 CA 8 PS UL E NE 00 09 01 02 [address] Ac XI 18 -2 -0 .0 TE 05 EP ti UM 65 0- 1- 00 98 HE ve 04 20 20 AI NS 03 08 09 D 1 PH DO 40 AR N M R MG #3 93 CA 8 PS UL E AV 00 12 12 00 5. 5 EA 10 GO Ac EL 08 -0 -[address] 52 BL ti OX 51 3- 8- 0 SI 77 E ve 73 20 20 DE RO 40 30 08 08 ND 0 1 PH AL MG AR E MA TA CY BL ET OF CY NT HI AN A ME 00 12 12 00 21 6 EA 10 GO Ac TH 78 -0 -[address] 52 BL ti YL 15 3- 8- 00 SI 78 E ve CO 02 20 20 DE RO ED 20 08 08 ND NI 7 PH AL SO AR E LO MA NE CY 4 OF MG CY NT DO HI SE AN PK A NE 00 09 12 01 [address] Ac XI 18 -2 -0 .0 TE 05 EP ti UM 65 0- 4- 00 98 HE ve 04 [address] 03 08 08 D 1 PH DO 40 AR N M R MG #3 93 CA 8 PS UL E 51 10 11 00 30 15 EA 99 GO Ac 99 -2 -[address] 92 BL ti 10 0- 7- 00 SI 68 E ve 42 20 20 DE RO 90 08 08 ND 1 PH AL AR E MA CY OF CY NT HI AN A AL 59 09 10 00 [address] Ac CO 76 -2 -0 .0 TE 05 EP ti AZ 23 0- 9- 00 95 HE ve OL 72 20 20 AI NS AM 00 08 08 D 1 PH DO 0. AR N 5 M R MG #3 93 TA 8 BL ET FL 00 09 10 00 [address] Ac UO 09 -2 -0 .0 TE 05 EP ti XE 37 0- 9- 00 94 HE ve TI 19 20 20 AI NS NE 85 08 08 D 6 PH DO HC AR N L M R 40 #3 93 MG 8 CA PS UL E NE 00 09 10 00 [address] Ac XI 18 -2 -0 .0 TE 05 EP ti UM 65 0- 9- 00 98 HE ve 04 [address] 03 08 08 D 1 PH DO 40 AR N M R MG #3 93 CA 8 PS UL E ME 50 09 10 00 [address] Ac TR 11 -2 -0 .0 TE 05 EP ti ON 10 0- 9- 00 97 HE ve ID 33 20 20 AI NS AZ 40 08 08 D OL 1 PH DO E AR N 50 M R 0 #3 MG 93 8 TA BL ET CH 49 09 10 00 60 30 WA 69 PE Ac OL 88 -2 -0 .0 L- 89 NA ti ES 40 9- 9- 00 MA 71 ve TY 46 20 20 RT 7 MYRIAM RA 56 08 08 IS FL 5 PH R NE AR MA PA CY CK ET #5 91 52 09 10 00 1. 1 WA 69 PE Ac 26 -2 -0 00 L- 90 NA ti 80 9- 9- 0 MA 01 ve 52 20 20 RT 3 MYRIAM 10 08 08 IS 1 PH R AR MA CY #5 91 00 09 10 00 28 4 EA 99 No Ac 78 -2 -[address] 58 t ti 11 3- 9- 00 SI 74 Av ve 26 20 20 DE ai 20 08 08 la 1 PH bl AR e MA CY OF CY NT HI AN A 00 09 10 00 6. 1 EA 99 No Ac 59 -2 -[address] 55 t ti 10 2- 9- 0 SI 81 Av ve 34 20 20 DE ai 90 08 08 la 1 PH bl AR e MA CY OF CY NT HI AN A 00 09 09 00 6. 2 EA 99 No Ac 59 -1 -[address] 53 t ti 10 8- 6- 0 SI 10 Av ve 34 20 20 DE ai 90 08 08 la 1 PH bl AR e MA CY OF CY NT HI AN A IRAHETA 53 09 09 00 14 7 EA 99 No Ac LF 48 -1 -[address] 53 t ti AM 90 8- 6- 00 SI 09 Av ve ET 14 20 20 DE ai HO 60 08 08 la XA 1 PH bl ZO AR e LE MA -T CY MP OF DS CY NT TA HI BL AN ET A CY 00 08 09 00 15 5 EA 99 No Ac CL 59 -2 -[address] 24 t ti OB 15 7- 1- 00 SI 95 Av ve EN 65 20 20 DE ai ZA 80 08 08 la CO 1 PH bl IN AR e E MA 10 CY MG OF CY TA NT BL HI ET AN A NA 00 09 09 00 10 5 EA 99 No Ac CO 09 -0 -[address] 36 t ti OX 30 5- 1- 00 SI 96 Av ve EN 14 20 20 DE ai 90 08 08 la 50 1 PH bl 0 AR e MG MA CY TA BL OF ET CY NT HI AN A 00 08 09 00 10 2 EA 99 No Ac 59 -2 -[address] 24 t ti 10 7- 1- 00 SI 94 Av ve 34 20 20 DE ai 90 08 08 la 1 PH bl AR e MA CY OF CY NT HI AN A 00 03 08 01 [address] Ac 37 -1 -2 .0 L- 63 EP ti 81 1- 8- 00 MA 65 HE ve 08 20 20 RT 1 NS 90 08 08 1 PH DO AR N MA R CY #5 91 00 07 08 00 16 4 WA 44 SC Ac 40 -2 -0 .0 L- 69 HU ti 60 3- 1- 00 MA 68 LS ve 35 20 20 RT 0 TA 70 08 08 D 5 PH CA AR MP MA BE CY LL K #5 91 00 07 08 00 16 4 WA 44 SC Ac 40 -1 -0 .0 L- 69 HU ti 60 7- 1- 00 MA 56 LS ve 35 20 20 RT 4 TA 70 08 08 D 5 PH CA AR MP MA BE CY LL K #5 91 00 07 07 00 20 5 WA 44 SC Ac 40 -0 -1 .0 L- 69 HU ti 60 3- 7- 00 MA 30 LS ve 35 20 20 RT 0 TA 70 08 08 D 5 PH CA AR MP MA BE CY LL K #5 91 TR 60 07 07 00 24 6 EA 98 No Ac AM 50 -0 -[address] 56 t ti AD 50 1- 7- 00 SI 53 Av ve OL 17 20 20 DE ai 10 08 08 la HC 8 PH bl L AR e 50 MA CY MG OF TA CY BL NT ET HI AN A NI 00 07 07 00 14 7 EA 98 No Ac TR 18 -0 -[address] 58 t ti OF 50 2- 7- 00 SI 57 Av ve UR 12 20 20 DE ai AN 20 08 08 la TO 1 PH bl IN AR e MA MO CY NO -M OF CR CY NT 10 HI 0 AN MG A CO 00 07 07 00 15 2 EA 98 No Ac OM 78 -0 -[address] 58 t ti ET 11 2- 7- 00 SI 59 Av ve LOPEZ 83 20 20 DE ai ZI 01 08 08 la NE 0 PH bl AR e 25 MA CY MG OF TA CY BL NT ET HI AN A CO 00 08 07 01 12 2 RI 73 SC Ac OM 60 -1 -0 .0 TE 50 HE ti ET 35 7- 3- 00 76 UR ve LOPEZ 43 20 20 AI IC ZI 82 07 08 D H NE 1 PH PA AR ME 25 M LA #3 MG 93 8 TA BL ET 00 06 06 00 6. 3 WA 44 SM Ac 09 -0 -1 00 L- 68 AL ti 30 3- 2- 0 MA 62 L ve 89 20 20 RT 9 SETH 00 08 08 HN 5 PH T AR MA CY #5 91 CO 00 08 06 00 12 2 RI 73 SC Ac OM 60 -1 -0 .0 TE 50 HE ti ET 35 7- 5- 00 76 UR ve LOPEZ 43 20 20 AI IC ZI 82 07 08 D H NE 1 PH PA AR ME 25 M LA #3 MG 93 8 TA BL ET FA 00 05 05 00 20 10 WA 69 No Ac MO 17 -1 -2 .0 L- 72 t ti TI 25 6- 2- 00 MA 37 Av ve DI 72 20 20 RT 4 ai NE 86 08 08 la 0 PH bl 20 AR e MA MG CY TA #5 BL 91 ET FL 00 03 05 01 30 30 WA 69 No Ac UO 09 -1 -2 .0 L- 65 t ti XE 37 1- 2- 00 MA 25 Av ve TI 19 20 20 RT 0 ai NE 85 08 08 la 6 PH bl HC AR e L MA 40 CY MG #5 91 CA PS UL E 00 03 04 00 7. 7 [place] 69 No Ac 04 -2 -1 00 L- 65 t ti 51 1- 7- 0 MA 08 Av ve 52 20 20 RT 6 ai 55 08 08 la 0 PH bl AR e MA CY #5 91 00 03 04 00 30 30 WA 69 No Ac 37 -1 -1 .0 L- 63 t ti 81 1- 7- 00 MA 65 Av ve 08 20 20 RT 1 ai 90 08 08 la 1 PH bl AR e MA CY #5 91 AL 00 03 04 00 90 30 WA 44 No Ac CO 37 -1 -1 .0 L- 66 t ti AZ 84 1- 7- 00 MA 83 Av ve OL 00 20 20 RT 4 ai AM 30 08 08 la 5 PH bl 0. AR e 5 MA MG CY TA #5 BL 91 ET CO 00 03 04 00 12 6 WA 44 No Ac OM 60 -2 -1 0. L- 67 t ti ET 31 5- 0- 00 MA 12 Av ve LOPEZ 58 20 20 0 RT 4 ai ZI 55 08 08 la NE 8 PH bl -C AR e OD MA EI CY NE #5 SY 91 RU P FL 00 03 04 00 30 30 WA 69 No Ac UO 09 -1 -1 .0 L- 65 t ti XE 37 1- 0- 00 MA 25 Av ve TI 19 20 20 RT 0 ai NE 85 08 08 la 6 PH bl HC AR e L MA 40 CY MG #5 91 CA PS UL E Procedures Procedure DOS Code Location Performer Comment O2 CONC 1 E1390 [facility]ZETH T[facility]CANO [facility] 85%/>02 MEDICAL MEDICAL CONC AT EQUIPME EQUIPME PRSC FLW RATE O2 CONC 1 E1390 LIZETH TOSCANO [facility] 7 HOME HOME 85%/>02 MEDICAL MEDICAL CONC AT [place] [address] [facility] MERED[facility] MAGNESIUM 7 [facility] INC INC COLLECTIO 79477 MASOUD MEREDITH N VENOUS 7 [facility] BLOOD INC INC VENIPUNCT URE COMPREHEN 57064 MASOUD MEREDITH SIVE 7 [facility] METABOLIC INC INC PANEL O2 CONC 1 E1390 LIZETH STANLEY [place] 7 HOME HOME 85%/>02 MEDICAL MEDICAL CONC AT EQUIPME EQUIPME PRSC FLW RATE O2 CONC 1 E1390 LIZETH STANLEY [place] 7 [facility] HOME 85%/>02 MEDICAL MEDICAL CONC AT EQUIPME EQUIPME PRSC FLW RATE O2 CONC 1 E1390 LIZETH STANLEY [place] 6 [facility] HOME 85%/>02 MEDICAL MEDICAL CONC AT EQUIPME EQUIPME PRSC FLW RATE O2 CONC 1 E1390 LIZETH STANLEY [place] 6 [facility] HOME 85%/>02 MEDICAL MEDICAL CONC AT EQUIPME EQUIPME PRSC FLW RATE O2 CONC 1 E1390 LIZETH STANLEY [place] 6 HOME HOME 85%/>02 MEDICAL MEDICAL CONC [place] [address] [place] MUNOZ ALL ABDOMEN & 6 MEDICAL PELVIS IMAGING W/CONTRAS ASS T MATERIAL O2 CONC 1 E1390 LIZETH STANLEY [place] 6 HOME HOME 85%/>02 MEDICAL MEDICAL CONC AT EQUIPME EQUIPME PRSC FLW RATE UNCLASSIF J3490 MASOUD MEREDITH IED DRUGS 6 [facility] INC INC ANES 12766 LISA [place] UPPER GI 6 ANESTH DEBBIE ENDOSCOPY OF THE PROXIMAL BLUE TO DUODENUM ESOPHAGOG 98083 MASOUDYOMI RIVERAON ASTRODUOD 6 [facility] ENOSCOPY INC INC TRANSORAL DIAGNOSTI C O2 CONC 1 E1390 LIZETH STANLEY [place] 6 [facility] HOME 85%/>02 MEDICAL MEDICAL CONC AT [facility] FL[facility] UNCLASSIF J3490 MASOUD MEREDITH IED DRUGS 6 [facility] INC INC CULTURE 96567 MASOUD MEREDITH BACTERIAL 6 [facility] INC INC QUANTTATI VE COLONY COUNT URINE CULTURE 42262 MASOUD MEREDITH BCT 6 [facility] ISOL&PRSM INC INC PTV ID ISOLATE EA URINE SUSCEPTIB 53012 MASOUD MEREDITH LTY STDY 6 [facility] ANTIMICRB INC INC IAL MICRO/[place] [address] MASOUD MEREDITH AMYLASE 6 [facility] INC INC THER 35367 MASOUD MERED[facility] PROPH/DX 6 [facility] NJX IV INC INC PUSH SINGLE/1S T SBST/DRUG BLOOD 25266 MASOUD MEREDITH COUNT 6 [facility] COMPLETE INC INC AUTO&AUTO DIFRNTL WBC DRUG TST G0477 MASOUD MEREDITH PRESUMP;C 6 [facility] PBL [place]ING [place] [address] MASOUD MEREDITH ABDOMEN & 6 [facility] PELVIS [place] [address] MASOUD MEREDITH LIPASE 6 [facility] INC INC COMPREHEN 31448 MASOUD MEREDITH SIVE 6 [facility] METABOLIC INC INC PANEL O2 CONC 1 E1390 LIZETH STANLEY [place] 6 [facility] HOME 85%/>02 MEDICAL MEDICAL CONC AT [facility] FLW RATE NONEMERG A0120 FEDERATED FEDERATED TRNSPRT: 6 MINI-BUS TRANSPORT TRANSPORT MTN ATION SER ATION SER AREA/OTH SYS ROTARY A0436 AIR AIR WING AIR 6 METHODS METHODS [facility] PER STATUTE MILE AMB A0431 AIR AIR SERVICE 6 METHODS METHODS CONVNTION [facility] AIR SRVC TRANSPORT 1 [address] RADIOLOGI 57414 [place] ALEXANDER LARA C 6 MEDICAL EXAMINATI IMAGING ON CHEST ASS SINGLE VIEW FRONTAL RADIOLOGI 08943 [place] CLARISSE C 6 MEDICAL NICOLE EXAMINATI SERV ON TIBIA FOUNDATIO & FIBULA N 2 VIEWS RADIOLOGI 63243 [facility] MUNOZ ALL C 6 MEDICAL EXAMINATI IMAGING ON PELVIS ASS 1/[address] [place] [address] ALEISHA SHERYL KWA ANGIOGRAP 6 MEDICAL HY HEAD SERV W/CONTRAS FOUNDATIO T/[place] [address] ALEISHA SAUCEDO KWA ANGIOGRAP 6 MEDICAL HY NECK SERV W/CONTRAS FOUNDATIO T/NONCONT N RAST O2 CONC 1 E1390 LIZETH STANLEY [place] 6 [place] 85%/>02 MEDICAL MEDICAL CONC AT EQUIPME EQUIPME [facility] FLW RATE OBSERVATI 17934 [place] [facility] ON CARE 6 [facility] DISCHARGE INTERNAL MED MANAGEMEN T GROUND A0425 [facility] MILEAGE 6 AMBULANCE AMBULANCE PER SERVICE SERVICE STATUTE MILE [facility] A0427 [facility] SERVICE 6 AMBULANCE AMBULANCE ALS SERVICE SERVICE EMERGENCY TRANSPORT LEVEL 1 INITIAL 68339 [place] OBSERVATI 6 [place] CHARLES ON INTERNAL CARE/DAY [place] [address] [place] [address] [place] ARIAN ABDOMEN & 6 MEDICAL JERIC[place] PELVIS IMAGING W/O ASS CONTRAST MATERIAL O2 CONC 1 E1390 LIZETH ROGERSRELL [place] 6 HOME HOME 85%/>02 MEDICAL MEDICAL CONC AT EQUIPME EQUIPME [facility] FLW RATE O2 CONC 1 E1390 LIZETH STANLEY [place] 6 [place] HOME 85%/>02 MEDICAL MEDICAL CONC AT EQUIPME [facility]QU[facility] FLW RATE RADIOLOGI 336[address] [facility] MUNOZ ALL C EXAM 6 MEDICAL CHEST 2 IMAGING VIEWS ASS FRONTAL&L ATERAL O2 CONC 1 E1390 LIZETH STANLEY [place] 6 HOME HOME 85%/>02 MEDICAL MEDICAL CONC AT EQUIPME EQUIPME PRSC FLW RATE O2 CONC 1 E1390 LIZETH STANLEY [place] 6 [place] HOME 85%/>02 MEDICAL MEDICAL CONC AT EQUIPME EQUIPME [facility] FLW RATE O2 CONC 1 E1390 LIZETH STANLEY [place] 6 [place] 85%/>02 MEDICAL MEDICAL CONC AT EQUIPME EQUIPME [facility] O2 CONC 1 E1390 LIZETH STANLEY [place] 5 [place] HOME 85%/>02 MEDICAL MEDICAL CONC AT [facility] FLW RATE O2 CONC 1 E1390 LIZETH LIZETH DEL [place] 5 HOME HOME 85%/>02 MEDICAL MEDICAL CONC AT [facility] FLW RATE CULTURE 40439 COMBINED COMBINED BACTERIAL 5 PHYSICIAN PHYSICIAN S LA S LA QUANTTATI VE COLONY COUNT URINE CULTURE 74444 COMBINED COMBINED BCT 5 PHYSICIAN PHYSICIAN ISOL&PRSM S LA S LA PTV ID ISOLATE EA URINE SUSCEPTIB 17026 COMBINED COMBINED ILITY 5 PHYSICIAN PHYSICIAN STUDY S LA S LA ANTIMICRO BIAL DISK METHOD URNLS DIP 29164 [place] [facility]ON 5 [facility] STICK/TAB INTERNAL LET RGNT MED NON-AUTO W/O MICRSCP RADIOLOGI 16844 [place] SLADE C EXAM 5 MEDICAL LAUREN CHEST 2 IMAGING VIEWS ASS FRONTAL&L ATERAL RADEX 02531 [place] SLADE FACIAL 5 MEDICAL LAUREN BONES IMAGING COMPLETE ASS MINIMUM 3 VIEWS O2 CONC 1 E1390 LIZETH STANLEY [facility] PORT 5 HOME HOME 85%/>02 MEDICAL MEDICAL CONC AT [facility] FLW RATE OBSERVATI 19044 [place] ON CARE 5 [facility] DISCHARGE INTERNAL MED MANAGEMEN T INITIAL 95976 [place] OBSERVATI 5 [facility] ON INTERNAL CARE/DAY MED [address] [place] [address] [place] SLADE ANGIOGRAP 5 MEDICAL LAUREN HY CHEST IMAGING W/CONTRAS ASS T/NONCONT RAST ECG 08995 MASOUD BESSON ROUTINE 5 [facility] W/LEAST P 12 LDS I&R ONLY RADIOLOGI 59074 [place] SLADE C 5 MEDICAL LAUREN EXAMINATI IMAGING ON CHEST ASS SINGLE VIEW FRONTAL RADIOLOGI 62424 [place] MUNOZ ALL C EXAM 5 MEDICAL CHEST 2 IMAGING VIEWS ASS FRONTAL&L ATERAL O2 CONC 1 E1390 LIZETH STANLEY [place] 5 [place] HOME 85%/>02 MEDICAL MEDICAL CONC AT [facility] FL[facility] O2 CONC 1 E1390 LIZETH TOSCANO [place] 5 HOME HOME 85%/>02 MEDICAL MEDICAL CONC AT EQUIPME EQUIPME PRS FLW RATE O2 CONC 1 E1390 LIZETH TOSCANO [place] 5 HOME HOME 85%/>02 MEDICAL MEDICAL CONC AT EQUIPME EQUIPME PRS FLW RATE O2 CONC 1 E1390 LIZETH TOSCANO [place] 5 HOME HOME 85%/>02 MEDICAL MEDICAL CONC AT EQUIPME EQUIPME PRS FLW RATE O2 CONC 1 E1390 LIZETH TOSCANO [place] 5 HOME HOME 85%/>02 MEDICAL MEDICAL CONC AT EQUIPME EQUIPME PRS FLW RATE AMB A0427 [facility] SERVICE 5 AMBULANCE AMBULANCE ALS SERVICE SERVICE EMERGENCY TRANSPORT LEVEL 1 GROUND A0425 [facility] MILEAGE 5 AMBULANCE AMBULANCE PER SERVICE SERVICE STATUTE MILE GROUND A0425 [facility] MILEAGE 5 AMBULANCE AMBULANCE PER SERVICE SERVICE STATUTE MILE AMB A0427 [facility] SERVICE 5 AMBULANCE AMBULANCE ALS SERVICE SERVICE EMERGENCY TRANSPORT LEVEL 1 [place] [address] [facility], SURG 5 [employer] [facility] PATHOLOGY GROSS&GUSTAVO ROSCOPIC EXAM ECHO 63701 ALEISHA STANLEY TTHRC R-T 5 MEDICAL ANTHONY 2D SERV W/WOM-MOD FOUNDATIO E COMPL N SPEC&COLR D US PELVIC 79490 BEATRIZ MCKEONCHER 5 MEDICAL LAUREN NONOBSTET IMAGING GIANCARLO ASS REAL-TIME IMAGE COMPLETE O2 CONC 1 E1390 LIZETH TOSCANO [place] 5 HOME HOME 85%/>02 MEDICAL MEDICAL CONC AT EQUIPME EQUIPME [facility] FLW RATE O2 CONC 1 E1390 LIZETH TOSCANO PORT 5 HOME HOME 85%/>02 MEDICAL MEDICAL CONC AT EQUIPME EQUIPME [facility] FLW RATE O2 CONC 1 E1390 LIZETH TOSCANO [place] 5 HOME HOME 85%/>02 MEDICAL MEDICAL CONC AT [place] [address] BEATRIZ MCKEONCHER HEAD/BRAI 4 MEDICAL LAUREN N W/[place] [address] BEATRIZ ASHUTCHER CERVICAL 4 MEDICAL LAUREN SPINE W/[place] [address] BEATRIZ SLADE MAXILLOFA 4 MEDICAL LAUREN CIAL W/O IMAGING CONTRAST ASS MATERIAL ESOPHAGOG 59638 ALEISHA MIGUELI ASTRODUOD 4 MEDICAL ENOSCOPY SERV TRANSORAL FOUNDATIO N DIAGNOSTI C ANES 36590 [facility] CHARU UPPER GI 4 ANESTH ENDOSCOPY OF THE PROXIMAL BLUE TO DUODENUM O2 CONC 1 E1390 LIZETH STANLEY [place] 4 HOME HOME 85%/>02 MEDICAL MEDICAL CONC AT EQUIPME EQUIPME PRSC FLW RATE O2 CONC 1 E1390 LIZETH STANLEY [place] 4 HOME HOME 85%/>02 MEDICAL MEDICAL CONC AT EQUIPME EQUIPME PRSC FLW RATE O2 CONC 1 E1390 LIZETH STANLEY [place] 4 HOME HOME 85%/>02 MEDICAL MEDICAL CONC AT EQUIPME EQUIPME PRSC FLW RATE NEBULIZER E0570 LIZETH STANLEY WITH 4 HOME HOME COMPRESSO MEDICAL MEDICAL R EQUIPME EQUIPME O2 CONC 1 E1390 LIZETH STANLEY [place] 4 HOME HOME 85%/>02 MEDICAL MEDICAL CONC AT EQUIPME EQUIPME PRSC FLW RATE HEPATITIS 12479 MASOUD MEREDITH C 4 [facility] ANTIBODY INC INC HEPATITIS 13485 MASOUD MEREDITH A 4 [facility] ANTIBODY INC INC HAAB COMPREHEN 34086 MASOUD MEREDITH SIVE 4 [facility] METABOLIC INC INC PANEL HEPATITIS 85651 MASOUD MEREDITH B CORE 4 [facility] ANTIBODY INC INC HBCAB TOTAL HEPATITIS 57176 MASOUD MEREDITH B SURF 4 [facility] [place] [address] MASOUD MEREDITH HEPATITIS 4 [facility] B INC INC SURFACE ANTIGEN O2 CONC 1 E1390 LIZETH STANLEY [place] 4 HOME HOME 85%/>02 MEDICAL MEDICAL CONC AT EQUIPME EQUIPME PRSC FLW RATE O2 CONC 1 E1390 LIZETH STANLEY [place] 4 HOME HOME 85%/>02 MEDICAL MEDICAL CONC AT EQUIPME EQUIPME PRSC FLW RATE RADEX ABD 38050 SLADE SLADE COMPL 4 LAUREN LAUREN AQT ABD W/S/E/D VIEWS 1 VIEW CH RADEX ABD 27927 SLADE SLADE COMPL 4 LAUREN LAUREN AQT ABD W/S/E/D VIEWS [address] THORAX 22276 SLADE SLADE W/O [address] [place] [address] SLADE SLADE ABDOMEN & 4 LAUREN LAUREN PELVIS W/CONTRAS T MATERIAL O2 CONC 1 E1390 LIZETH STANLEY [place] 4 HOME HOME 85%/>02 MEDICAL MEDICAL CONC AT EQUIPME EQUIPME [facility] FLW RATE AMB A0427 [facility] SERVICE 4 AMBULANCE AMBULANCE ALS SERVICE SERVICE EMERGENCY TRANSPORT LEVEL 1 GROUND A0425 [facility] MILEAGE 4 AMBULANCE AMBULANCE [place] [address] SLADE SLADE HEAD/BRAI 4 LAUREN LAUREN N W/O CONTRAST MATERIAL RADIOLOGI 57487 SLADE SLADE C 4 LAUREN LAUREN EXAMINATI ON CHEST SINGLE VIEW FRONTAL CULTURE 22121 COMBINED COMBINED BACTERIAL 4 PHYSICIAN PHYSICIAN S LA [place] [address] SLADE SLADE ABDOMINAL 4 LAUREN LAUREN REAL TIME W/IMAGE DOCUMENTA DANIEL KEM E0143 LIZETH STANLEY FOLDING 4 HOME HOME WHEELED MEDICAL MEDICAL ADJUSTABL EQUIPME EQUIPME E/FIXED HEIGHT COMMODE E0163 LIZETH STANLEY CHAIR 4 HOME HOME MOBILE OR MEDICAL MEDICAL EQUIPME EQUIPME STATIONAR Y [place] [address] [facility] 1/> AREAS [address] EA 15 [facility] MIN GAIT TRAINJ W/STAIR SELF-CARE 25507 [facility] /HOME [address] MGMT [facility] TRAINING EACH 15 MINUTES THERAPEUT 51309 [facility] ACTVITY [address] DIRECT PT [facility] CONTACT EACH 15 MIN THERAPEUT 75803 [facility] ACTVITY [address] DIRECT PT [facility] CONTACT EACH 15 MIN THERAPEUT 54286 [facility] IC PX 1/> [address] AREAS [facility] EACH 15 MIN EXERCISES THERAPEUT 78785 [place] [facility]/> [address] AREAS [facility] EACH 15 MIN EXERCISES THERAPEUT 85810 [facility] ACTVITY [address] DIRECT PT [facility] CONTACT EACH 15 MIN THERAPEUT 20017 [facility] ACTVITY [address] DIRECT PT [facility] CONTACT EACH 15 MIN BASIC 35710 [facility] MET[address]OLIC [address] PANEL [facility] CALCIUM TOTAL COLLECTIO 73815 [facility] N VENOUS [address] BLOOD [facility] VENIPUNCT URE THERAPEUT 58724 [place] [facility] 1/> [address] AREAS [facility] [place]ACH 15 [place] [address] [facility] 1/> AREAS [address] EA 15 [facility] MIN GAIT TRAINJ W/STAIR THERAPEUT 60338 [facility] ACTVITY [address] DIRECT PT [facility] CONTACT EACH 15 MIN O2 CONC 1 E1390 [facility] DEL PORT [address] 85%/>02 [facility] CONC AT PRSC FLW RATE O2 CONC 1 E1390 [place] [facility] PORT [address] 85%/>02 [facility] CONC AT PRSC FLW RATE THERAPEUT 51337 [facility] ACTVITY [address] DIRECT PT [facility] CONTACT EACH 15 MIN THERAPEUT 05560 [facility] ACTVITY [address] DIRECT PT [facility] CONTACT EACH 15 MIN THERAPEUT 50101 [facility] ACTVITY [address] DIRECT PT [facility] CONTACT EACH 15 MIN THERAPEUT 49286 [facility] IC PX 1/> [address] AREAS [facility] EACH 15 MIN EXERCISES BLOOD 37171 [place] [facility] COUNT [address] COMPLETE [facility] LLC AUTO&[place] [address] [place] [facility] THYROID [address] STIMULATI [facility] NG HORMONE TSH COLLECTIO 20971 [facility] N VENOUS [address] BLOOD [facility] VENIPUNCT URE COMPREHEN 02890 [facility] SIVE [address] METABOLIC [facility] PANEL THERAPEUT 07245 [facility] ACTVITY [address] DIRECT PT [facility] CONTACT EACH 15 MIN THERAPEUT 70633 [facility] ACTVITY [address] [facility] CONTACT EACH 15 MIN THERAPEUT 85518 [facility] ACTVITY [address] [facility] CONTACT EACH 15 MIN THERAPEUT 46139 [facility] IC PX 1/> [address] AREAS [facility] EACH 15 MIN EXERCISES PHYSICAL 57529 [facility] THERAPY [address] EVALUATIO [facility] N THERAPEUT 45354 [facility] ACTVITY [address] DIRECT PT [facility] CONTACT EACH 15 MIN WHEELCHAI 70528 [facility] R MGMT EA [address] 15 MIN [facility] OCCUPATIO 58839 [facility] NAL [address] TH[facility]APY [facility] EVALUATIO N RADEX 93841 SYMPHONY SYMPHONY ABDOMEN 1 4 MOBILEX MOBILEX ANTEROPOS TERIOR VIEW INITIAL 07472 [facility] 4 EXTENDED [facility] CARE CARE/DAY SERV 35 MINUTES AMB [id number] [facility] OXYGEN&O2 4 MEDICAL MEDICAL SUPPLIES RESPONSE RESPONSE LIFE SUSTAININ G SITUATION GROUND A0425 [facility] MILEAGE 4 MEDICAL MEDICAL PER RESPONSE RESPONSE STATUTE MILE SBSQ 54103 [facility] 4 CARE/DAY 25 MINUTES ABDOM 48195 [facility] AR[facility]UELLESLER [facility] 4 CAR CAR SIS DX/THER W/IMAGING GUIDANCE SBSQ 49943 [facility] 3 CARE/DAY 25 MINUTES SBSQ 66802 [facility] 3 CARE/DAY 25 MINUTES ABDOM 38380 [facility] 3 LD IV A LD IV A SIS DX/THER W/IMAGING GUIDANCE RADEX 79710 TAYLOR SHAWANDA TAYLOR SHAWANDA ABDOMEN 1 3 ANTEROPOS TERIOR VIEW RADIOLOGI 53918 DISANTIS DISANTIS C 3 CALVIN CALVIN EXAMINATI ON CHEST SINGLE VIEW FRONTAL SBSQ 99075 [facility] 3 III WHIT III WHIT CARE/DAY 25 MINUTES SBSQ 13434 [facility] 3 III WHIT III WHIT CARE/DAY 25 MINUTES SBSQ 71313 [facility] 3 DAVE ACOSTA CARE/DAY 35 MINUTES ABDOM 12937 [facility]IN [facility] 3 I GIANCARLO I GIANCARLO SIS DX/THER W/IMAGING GUIDANCE ABDOM 57418 PELLEGRIN PELLEGRIN PARACENTE 3 I GIANCARLO I GIANCARLO SIS DX/THER W/IMAGING GUIDANCE INTRODUCT 93876 PELLEGRIN PELLEGRIN ION LONG 3 I GIANCARLO I GIANCARLO GI TUBE SEPARATE PROCEDURE INTRO 87949 PELLEGRIN PELLEGRIN LONG GI 3 I GIANCARLO I GIANCARLO TUBE W/MULT FLUORO & IMAGES RS&[place] [address] TAYLOR SHAWANDA TAYLOR SHAWANDA ABDOMEN & 3 PELVIS W/O CONTRAST MATERIAL RADIOLOGI 11789 SHANIKA SHANIKA C 3 JETT JETT EXAMINATI ON CHEST SINGLE VIEW FRONTAL ABDOM 39992 PELLEGRIN PELLEGRIN PARACENTE 3 I GIANCARLO I GIANCARLO SIS DX/THER W/IMAGING GUIDANCE RADEX 63790 DISANTIS DISANTIS ABDOMEN 1 3 CALVIN CALVIN ANTEROPOS TERIOR VIEW ESOPHAGOG 71965 [facility] ASTRODUOD [address] ENOSCOPY TRANSORAL DIAGNOSTI C COLONOSCO 18879 [facility]OM[facility] PY [address] W/BIOPSY SINGLE/[place] [address] GUILLERMO GUILLERMO SURG 3 DARRYL DARRYL PATHOLOGY GROSS&GUSTAVO ROSCOPIC EXAM RADIOLOGI 50263 FIORDALIZA FIORDALIZA C 3 GABRIELA GABRIELA EXAMINATI ON CHEST SINGLE VIEW FRONTAL ABDOM 56454 PELLEGRIN PELLEGRIN PARACENTE 3 I GIANCARLO I GIANCARLO SIS DX/THER W/IMAGING GUIDANCE RADEX ABD 39609 DENISSE SALCEDO COMPL 3 SCO SCO AQT ABD W/S/E/D VIEWS 1 VIEW CH ABDOM 00514 PELLEGRIN PELLEGRIN PARACENTE 3 I GIANCARLO I GIANCARLO SIS DX/[place] [address] FRANK FRANK ABDOMEN & 3 FRA FRA PELVIS W/O CONTRAST MATERIAL RADEX 79522 DISANTIS DISANTIS ABDOMEN 1 3 CALVIN CALVIN ANTEROPOS TERIOR VIEW RADEX 00428 FIORDALIZA FIORDALIZA ABDOMEN 3 GABRIELA GABRIELA COMPL W/DCBTS&/ ERC VIEWS ABDOM 70800 PELLEGRIN PELLEGRIN PARACENTE 3 I GIANCARLO I GIANCARLO SIS DX/THER W/IMAGING GUIDANCE RADEX 18874 JEREMIAS JEREMIAS ABDOMEN 1 3 ART ART ANTEROPOS TERIOR VIEW RADEX 67251 JEREMIAS JEREMIAS ABDOMEN 1 3 [place] [address] BHARATI CALABRESE SURG 3 JERICHO ECHAVARRIA PATHOLOGY GROSS&GUSTAVO ROSCOPIC EXAM CYTP 00937 BHARATI CALABRESE SLCTV 3 JERICHO ECHAVARRIA CELL ENHANCEME NT INTERPJ XCPT C/V ABDOM 78370 PELLEGRIN PELLEGRIN PARACENTE 3 I GIANCARLO I GIANCARLO SIS DX/THER W/IMAGING GUIDANCE CYTP 66484 ARTURO MORRIS CONCENTRA 3 NICA NICA TION SMEARS & [place] [address] SHANIKA SHANIKA ABDOMINAL 3 JETT JETT REAL TIME W/IMAGE LIMITED RADEX 64541 DISANTIS DISANTIS ABDOMEN 3 CALVIN CALVIN COMPL W/DCBTS&/ ERC VIEWS RADEX 54611 SZABUNIO SZABUNIO ABDOMEN 1 3 MAR MAR ANTEROPOS TERIOR VIEW RADEX 26224 SALCEDO SALCEDO ABDOMEN 1 3 SCO SCO ANTEROPOS TERIOR VIEW RADEX ABD 58530 LUCY STAFFORDER COMPL 3 GUSTAVO GUSTAVO AQT ABD W/S/E/D VIEWS 1 VIEW CH RADIOLOGI 36455 LUCY BARNESKLER C 3 GUSTAVO GUSTAVO EXAMINATI ON CHEST SINGLE VIEW FRONTAL BLOOD 31617 WEST CALVIN WEST CALVIN SMEAR 3 PERIPHERA L INTERP PHYS W/WRIT REPORT RADIOLOGI 72381 LUCY LUCY C 3 GUSTAVO GUSTAVO EXAMINATI ON CHEST SINGLE VIEW FRONTAL RADEX 62459 SALCEDO SALCEDO ABDOMEN 1 3 SCO SCO ANTEROPOS TERIOR VIEW ECG 44377 RAKESH MELVIN RAKESH MELVIN ROUTINE 3 ECG W/LEAST 12 LDS I&R ONLY RADIOLOGI 09682 SHANIKA SHANIKA C 3 JETT JETT EXAMINATI ON CHEST SINGLE VIEW FRONTAL RADIOLOGI 77144 LUCY LUCY C 3 GUSTAVO GUSTAVO EXAMINATI ON CHEST SINGLE VIEW FRONTAL RADIOLOGI 18848 LUCY BARNESKLER C 3 GUSTAVO GUSTAVO EXAMINATI ON CHEST SINGLE VIEW FRONTAL RADEX 68671 TAYLOR SHAWANDA TAYLOR SHAWANDA ABDOMEN 1 3 ANTEROPOS TERIOR VIEW SBSQ 06609 [facility] 3 MEDICAL CALVIN CARE/DAY SERV 25 FOUNDATIO MINUTES N CRITICAL 93513 [place] LEÓN KET CARE 3 MEDICAL ILL/INJUR SERV ED FOUNDATIO PATIENT N INIT 30-74 MIN LOCALIZE 09465 [facility]- [place]- CEREBRAL 3 SIENNA BINA SIENNA BINA SEIZURE CABLE/RAD IO EEG/VIDEO INSJ 25104 LEÓN KET LEÓN KET NON-TUNNE 3 LED CENTRAL VENOUS CATH AGE 4 YR/> RADIOLOGI 75049 DISANTIS DISANTIS C 3 CALVIN CALVIN EXAMINAT[place] [address] SHERYL KWA SHERYL KWA HEAD/BRAI 3 N [place] [address] FRANK FRANK ABDOMINAL 3 FRA FRA REAL TIME W/IMAGE LIMITED DUP-SCAN 71929 FRANK FRANK ARTL GA 3 FRA FRA ABDL/PEL/ SCROT&/RP R ORGN COM CRITICAL 84408 LEÓN KET LEÓN KET CARE 3 ILL/INJUR ED PATIENT INIT 30-74 MIN ANES 10941 MOY RINCON COMPLICJ 3 EMERGENCY CONDITION S SPECIFY RADIOLOGI 79713 DISANTIS DISANTIS C 3 CALVIN CALVIN EXAMINATI ON CHEST SINGLE VIEW FRONTAL ANES 14538 MOY RINCON UPPER GI 3 ENDOSCOPY PROXIMAL TO DUODENUM EGD 03725 TX DEE TRANSORAL 3 MEDICAL GABRIELA BIOPSY SERV SINGLE/MU FOUNDATIO LTIPLE N SPECIAL 61849 BHARATI CALABRESE STAIN 3 JERICHO JERICHO GROUP 1 MICRO[place] NISMS [place] [address] BHARATI CALABRESE SURG 3 JERICHO ECHAVARRIA PATHOLOGY GROSS&GUSTAVO ROSCOPIC EXAM IMHISTOCH 64191 BHARATI CALABRESE EM/CYTCHM 3 JERICHO ECHAVARRIA 1ST ANTIBODY STAIN PROCEDURE ECHO 93740 [facility] 3 JR. NERI AGARWAL. NERI 2D W/WOM-MOD E COMPL SPEC&COLR D RADIOLOGI 22592 ALEXIA HALE C 3 GUSTAVO GUSTAVO EXAMINATI ON CHEST SINGLE VIEW FRONTAL RADIOLOGI 69699 MERHAR MERHAR C 3 GAR GAR EXAMINATI ON CHEST SINGLE VIEW FRONTAL THERAPEUT 74587 MASOUD MEREDITH IC 3 [facility] INJECTION [place] [address] MASOUD MEREDITH INFUSION 3 [facility] THERAPY/P INC INC ROPHYLAXI S /DX 1ST TO 1 HR CULTURE 39208 MASOUD MEREDITH BACTERIAL 3 [facility] BLOOD INC INC AEROBIC W/ID ISOLATES CULTURE 85536 MASOUD MEREDITH BACTERIAL 3 [facility] INC [place] [address] MASOUD MEREDITH INFUSION 3 [facility] THERAPY INC INC PROPHYLAX IS/DX EA HOUR URNLS DIP 28034 MASOUD MEREDITH 3 [facility] STICK/TAB INC INC LET REAGENT AUTO MICROSCOP Y CRITICAL 75712 MASOUD MEREDITH CARE 3 [facility] ILL/INJUR INC INC ED PATIENT INIT 30-74 MIN GROUND A0425 [facility] PER SERVICE SERVICE STATUTE MILE AMBULANCE A0429 [facility] SERVICE 3 AMBULANCE AMBULANCE BLS SERVICE SERVICE EMERGENCY TRANSPORT RHYTHM 72269 MASOUD MEREDITH ECG 1-3 3 [facility] LEADS INC INC TRACING ONLY W/O I&R ECG 13747 IBRAHIMA ALEXANDRA JR ROUTINE 3 DWI DWI ECG W/LEAST 12 LDS I&R ONLY COMPREHEN 19137 MASOUD MER[facility] SIVE 3 [facility] METABOLIC INC INC PANEL INJECTION J2405 [facility] MER[facility] 3 [facility] ONDANSETR INC INC ON HCL PER 1 [place] [address] MASOUD MEREDITH INFUSION 3 [facility] THER INC INC PROPH ADDL SEQUENTIA L TO 1 HR PROTHROMB 78885 MASOUD MEREDITH IN TIME 3 [facility] INC INC BLOOD 77272 MASOUD MEREDITH COUNT 3 [facility] COMPLETE INC INC AUTO&[place] [address] MASOUD MASOUD LIPASE 3 [facility] [place] [address] MASOUD MEREDITH AMYLASE 3 [facility] INC INC ECG 43117 MASOUD MEREDITH ROUTINE 3 [facility] ECG INC INC W/LEAST 12 LDS TRCG ONLY W/O I&R GROUND A0425 [facility] MILEAGE 3 AMBULANCE AMBULANCE PER SERVICE SERVICE STATUTE MILE AMBULANCE A0428 [facility] SERVICE 3 AMBULANCE AMBULANCE BLS SERVICE SERVICE NONEMERGE NCY TRANSPORT RADIOLOGI 08898 SLADE SLADE C 3 LAUREN LAUREN EXAMINAT[place] [address] SLADE SLADE HEAD/BRAI 3 LAUREN LAUREN N W/O CONTRAST MATERIAL URNLS DIP 91106 COMBINED COMBINED 3 PHYSICIAN PHYSICIAN STICK/TAB S LA S LA LET REAGENT AUTO [facility] 79603 [facility] DISCHARGE 3 [facility] MIN/< SBSQ 22457 [facility] 3 [facility] C[facility]/DAY 25 MINUTES 3D 54084 SLADE SLADE RENDERING 3 LAUREN LAUREN W/INTERP& POSTPROC DIFF WORK STATION INITIAL 02255 [facility] 3 [facility]/[place] [address] [place] [address] SLADE SLADE ABDOMEN & 3 LAUREN LAUREN PELVIS W/[place] [address] SLADE SLADE ABDOMINAL 3 LAUREN LAUREN REAL TIME W/IMAGE DOCUMENTA TION CT THORAX 37228 SLADE SLADE W/O 3 LAUREN LAUREN CONTRAST MATERIAL ECG 43420 RADESVIN ELI ROUTINE 3 III WHIT III WHIT ECG W/LEAST 12 LDS I&R ONLY RADIOLOGI 18218 SLADE SLADE C 3 LAUREN LAUREN EXAMINATI ON CHEST SINGLE VIEW FRONTAL RADEX 27093 SLADE SLADE RIBS 3 LAUREN LAUREN UNILATERA L 2 VIEWS RADEX 46053 MASOUD MEREDITH RIBS UNI 3 [facility] W/POSTERO INC INC ANT CH MINIMUM 3 VIEWS AMBULANCE A0429 [facility] SERVICE 3 AMBULANCE AMBULANCE BLS SERVICE SERVICE EMERGENCY TRANSPORT GROUND A0425 [facility] MILEAGE 3 AMBULANCE AMBULANCE PER SERVICE SERVICE STATUTE MILE GROUND A0425 [facility] MILEAGE 3 AMBULANCE AMBULANCE PER SERVICE SERVICE STATUTE MILE AMB A0427 [facility] SERVICE 3 AMBULANCE AMBULANCE ALS SERVICE SERVICE EMERGENCY TRANSPORT LEVEL 1 ECG 30104 ROGER FIELDS ROUTINE 3 EMERGENCY WHIT ECG SERVICES W/LEAST 12 LDS I&R ONLY URNLS DIP [address] [facility] [facility] 3 REJI REJI STICK/TAB LET RGNT NON-AUTO W/O MICRSCP IADNA 81875 ROGER DURAN [place] 3 PETEY PETEY VIRUS HUMAN AMPLIFIED PROBE TQ CYTP 31867 ROGER ROGER CERVICAL/ 3 PETEY PETEY VAGINAL REQ INTERP PHYSICIAN CYTP C/V 54572 ROGER DURAN AUTO THIN 3 PETEY PETEY LYR PREPJ SCR MNL RESCR PHYS URNLS DIP 26373 COMBINED COMBINED 3 PHYSICIAN PHYSICIAN STICK/TAB S LA S LA LET REAGENT AUTO MICROSCOP Y COMPREHEN 26159 COMBINED COMBINED SIVE 3 PHYSICIAN PHYSICIAN [place] [address] COMBINED COMBINED MAGNESIUM 3 [place] [address] COMBINED COMBINED MAGNESIUM 3 [place] [address] MASOUD MEREDITH MAGNESIUM 3 [place] [address] MASOUD MEREDITH PHOSPHORU 3 [facility] S INC INC INORGANIC ECG 74058 MASOUD MEREDITH ROUTINE 3 [facility] ECG INC INC W/LEAST 12 LDS TRCG ONLY W/O I&R BLOOD 28336 MASOUD MEREDITH COUNT 3 [facility] COMPLETE INC INC AUTO&AUTO DIFRNTL WBC COMPREHEN 70946 MASOUD MEREDITH SIVE 3 [facility] METABOLIC INC INC PANEL ECG 20233 IBRAHIMA ALEXANDRA JR ROUTINE 3 DWI DWI ECG W/LEAST 12 LDS I&R ONLY RADIOLOGI 39919 [facility] SLADE C 3 LAUREN LAUREN EXAMINATI ON CHEST SINGLE VIEW FRONTAL THERAPEUT 98306 MASOUD MASOUD IC 3 [facility] INJECTION [place] [address] MASOUD MEREDITH INFUSION 3 [facility] THERAPY/P INC INC ROPHYLAXI S /DX 1ST TO 1 HR AMB A0427 [facility] SERVICE 3 AMBULANCE AMBULANCE ALS SERVICE SERVICE EMERGENCY TRANSPORT LEVEL 1 GROUND A0425 [facility] MILEA 3 AMBULANCE AMBULANCE PER SERVICE SERVICE STATUTE [facility] 759[facility] COMBINED COMBINED 2 PHYSICIAN PHYSICIAN STICK/TAB S LA S LA LET REAGENT AUTO MICROSCOP Y GROUND A0425 [facility] MILEA 2 AMBULANCE AMBULANCE PER SERVICE SERVICE STATUTE MILE AMBULANCE A0429 [facility] SERVICE 2 AMBULANCE AMBULANCE BLS SERVICE SERVICE EMERGENCY TRANSPORT RADIOLOGI 06902 SLADE SLADE C 2 LAUREN LAUREN [place]AMINAT[place] [address] SLADE SLADE HEAD/BRAI 2 LAUREN LAUREN N W/[place] [address] SLADE SLADE CERVICAL 2 LAUREN LAUREN SPINE W/O CONTRAST MATERIAL RADIOLOGI 33127 [facility] SLADE C 2 MEDICAL LAUREN EXAMINATI IMAGING ON CHEST ASS SINGLE VIEW FRONTAL RADIOLOGI 72812 [facility] SLADE C 2 MEDICAL LAUREN EXAMINATI IMAGING ON CHEST ASS SINGLE VIEW FRONTAL ECG 43172 ELI BENITEZ ROUTINE 2 III WHIT III WHIT ECG W/LEAST 12 LDS I&[place] [address] MASOUD MEREDITH MAGNESIUM 2 [place] [address] MASOUD MEREDITH LIPASE 2 [facility] INC INC CREATINE 20948 MASOUD MEREDITH KINASE 2 [facility] [place] [address] MASOUD MEREDITH TROPONIN 2 [facility] [place] [address] MASOUD MEREDITH ABDOMEN & 2 [facility] PELVIS INC INC W/O CONTRAST MATERIAL BLOOD 19316 MASOUD MEREDITH COUNT 2 [facility] COMPLETE INC INC AUTO&AUTO DIFRNTL WBC ECG 32957 MASOUD MEREDITH ROUTINE 2 [facility] ECG INC INC W/LEAST 12 LDS TRCG ONLY W/O I&[place] [address] MASOUD MEREDITH AMYLASE 2 [facility] INC INC CREATINE 96529 MASOUD MEREDITH KINASE MB 2 [facility] FRACTION INC INC ONLY ECG 65661 ARNULFO ARREDONDO ROUTINE 2 GUSTAVO GUSTAVO ECG W/LEAST 12 LDS I&R ONLY RADIOLOGI 24466 [facility] SLADE C 2 MEDICAL LAUREN EXAMINATI IMAGING [place] [address] MASOUD MEREDITH INFUSION 2 [facility] THERAPY/P INC INC ROPHYLAXI S /DX 1ST TO 1 HR THERAPEUT 63276 MASOUD MEREDITH IC 2 [facility] INJECTION INC INC IV PUSH EACH NEW DRUG BASIC 92345 MASOUD MEREDITH METABOLIC 2 [facility] PANEL INC INC CALCIUM TOTAL HEPATIC 03696 MASOUD MEREDITH FUNCTION 2 [facility] PANEL INC INC GROUND A0425 [facility] MILEAGE 2 AMBULANCE AMBULANCE PER SERVICE SERVICE STATUTE MILE AMB A0427 [facility] SERVICE 2 AMBULANCE AMBULANCE ALS SERVICE SERVICE EMERGENCY TRANSPORT LEVEL 1 INITIAL 02770 CHEEMA AREN CHEEMA AREN INPATIENT 2 CONSULT NEW/ESTAB PT 80 MIN RADIOLOGI 39127 UVALDOY SLADE C 2 MEDICAL LAUREN EXAMINATI IMAGING ON CHEST ASS SINGLE VIEW FRONTAL CULTURE 21832 COMBINED COMBINED BACTERIAL 2 PHYSICIAN PHYSICIAN S LA S LA QUANTTATI VE COLONY COUNT URINE URNLS DIP 73932 JAY ANTHONYSON 2 CHARLES CHARLES STICK/TAB LET RGNT NON-AUTO W/O MICRSCP COMPREHEN 49447 MASOUD MEREDITH SIVE 2 [facility] [place] [address] BEATRIZ SLADE ABDOMINAL 2 MEDICAL LAUREN REAL IMAGING TIME ASS W/IMAGE DOCUMENTA TION BASIC 17156 MASOUD MEREDITH METABOLIC 2 [facility] PANEL INC INC CALCIUM TOTAL RADIOLOGI 61290 [facility] SLADE C 2 MEDICAL LAUREN EXAMINATI IMAGING ON CHEST ASS SINGLE VIEW FRONTAL AMB A0427 [facility] SERVICE 2 AMBULANCE AMBULANCE ALS SERVICE SERVICE EMERGENCY TRANSPORT LEVEL 1 GROUND A0425 [facility] 2 AMBULANCE AMBULANCE PER SERVICE SERVICE STATUTE MILE ECG 37251 ROGER OCASIO ROUTINE 2 EMERGENCY ECG SERVICES W/LEAST 12 LDS I&R ONLY THERAPEUT 49198 THOMAS GUZMAN IC 2 JR WHIT JR WHIT PROPHYLAC TIC/DX INJECTION SUBQ/IM ECG 16864 DIAMOND FIELDS ROUTINE 2 WHIT WHIT ECG W/LEAST 12 LDS I&R ONLY RADIOLOGI 45070 [facility] SLADE C 2 MEDICAL LAUREN EXAMINATI IMAGING [place] [address] [facility] MCKEONSLADE ABDOMEN & 2 MEDICAL LAUREN PELVIS IMAGING W/O ASS CONTRAST MATERIAL ECG 06542 ROGER WALLS ROUTINE 2 EMERGENCY ECG SERVICES W/LEAST 12 LDS I&R ONLY GROUND A0425 [facility] 2 AMBULANCE AMBULANCE PER SERVICE SERVICE STATUTE MILE CRITICAL 01626 [facility] 2 EMERGENCY ILL/INJUR SERVICES ED PATIENT INIT 30-74 MIN AMB A0427 [facility] SERVICE 2 AMBULANCE AMBULANCE ALS SERVICE SERVICE EMERGENCY TRANSPORT LEVEL 1 SPECIAL 15965 PATHOLOGY NANDO GUSTAVO STAIN 2 & GROUP 1 CYTOLOGY MICROORGA LAB NISMS I&[place] [address] PATHOLOGY NANDO GUSTAVO SURG 2 & PATHOLOGY CYTOLOGY LAB GROSS&GUSTAVO ROSCOPIC EXAM ECG 34857 ROGER GARDNER BAB ROUTINE 2 EMERGENCY ECG SERVICES W/LEAST 12 LDS I&R ONLY RADIOLOGI 38973 [place] SLADE C 2 MEDICAL LAUREN EXAMINATI IMAGING ON CHEST ASS SINGLE VIEW FRONTAL INITIAL 80489 [facility] FAC[facility] CARE/DAY 35 MINUTES ELECTROEN 95025 ALBRECHT GUL ALBRECHT GUL CEPHALOGR 2 AM W/REC AWAKE&[place] [address] UNIVERSIT SHERYL KWA ANGIOGRAP 2 Y OF HY HEAD [place] W/CONTRAS HOSPI T/[place] [address] UNIVERSIT SHERYL KWA ANGIOGRAP 2 Y OF HY NECK [place] W/[place] [address] UNIVERSIT MERHAR HEAD/BRAI 2 Y OF GAR N W/O [facility] CONTRAST HOSPI MATERIAL AMB A0427 [facility] SERVICE 2 AMBULANCE AMBULANCE ALS SERVICE SERVICE EMERGENCY TRANSPORT LEVEL 1 GROUND A0425 [facility]ULANCE [place] [address] AMARJIT [place] HEAD/BRAI 2 [place] [address] DENISSE SALCEDO ABDOMINAL 2 SCO SCO REAL TIME W/IMAGE DOCUMENTA TION DUP-SCAN 74945 DENISSE SALCEDO ARTL GA 2 SCO SCO ABDL/PEL/ SCROT&/RP R ORGN COM AMB A0426 [facility] 2 MEDICAL MEDICAL ALS RESPONSE RESPONSE NONEMERGE NCY TRANSPORT LEVEL 1 GROUND A0425 [facility] MEDICAL MEDICAL PER RESPONSE RESPONSE STATUTE MILE SBSQ 86905 [facility] 2 GRE GRE CARE/DAY 25 MINUTES SBSQ 34895 [facility] 2 YUR YUR CARE/DAY 35 MINUTES RADIOLOGI 90158 [facility] C 2 RADIOLOGY EXAMINATI ASSOC ON CHEST SINGLE VIEW FRONTAL SBSQ 20331 [facility] 2 GRE GRE CARE/DAY 25 MINUTES SBSQ 51748 [facility] 2 GRE GRE CARE/DAY 25 MINUTES SBSQ 27966 [facility] 2 YUR YUR CARE/DAY 35 MINUTES SBSQ 34948 [facility] 2 YUR YUR CARE/DAY 25 MINUTES SBSQ 75653 [facility] 2 EIN DON EIN DON CARE/DAY 35 MINUTES SBSQ 33444 [facility] 2 EIN DON EIN DON CARE/DAY 25 MINUTES SBSQ 86142 [facility] 2 CHARLES CHARLES CARE/DAY 25 MINUTES SBSQ 32434 [facility] 2 EIN DON EIN DON CARE/DAY 35 MINUTES SBSQ 71500 [facility] 2 EIN DON EIN DON CARE/DAY 35 MINUTES ABDOM 94972 [facility] 2 RADIOLOGY MARTA SIS ASSOC DX/THER W/[place] [address] [facility] ABDOMEN & 2 RADIOLOGY MARTA PELVIS ASSOC W/[place] [address] [place] [facility] ABDOMEN & 2 RADIOLOGY PELVIS ASSOC W/O CONTRAST MATERIAL INITIAL 24894 [facility] 2 NEUROLOGY S [place] CARE/DAY SERVICES 70 MINUTES RADIOLOGI 73816 [facility] GOME[facility] J C 2 RADIOLOGY EXAMINATI ASSOC ON CHEST SINGLE VIEW FRONTAL CRITICAL 52643 [facility] 2 EMERGENCY DIANE ILL/INJUR PHYS PSC ED PATIENT INIT 30-74 MIN RADEX ABD 42712 COLL[facility] COLLIER COMPL 2 DON DON AQT ABD W/S/E/D VIEWS 1 VIEW CH URNLS DIP 68602 CO[facility] COLLIER 2 DON DON STICK/TAB LET RGNT NON-AUTO W/O MICRSCP ELECTROEN 62279 [facility] CEPHALOGR 2 GRE GRE AM W/REC AWAKE&ASL EEP RADEX ABD 22330 SLADE SLADE COMPL 2 LAUREN LAUREN AQT ABD W/S/E/D VIEWS 1 VIEW CH LOCM Q9967 MASOUD MEREDITH 300-399 2 [facility] MG/ML INC INC IODINE CONCENTRA TION PER ML URNLS DIP 14415 [facility] MEREDITH 2 [facility] STICK/TAB INC INC LET REAGENT AUTO MICROSCOP Y CULTURE 29953 MASOUD MEREDITH BACTERIAL 2 [facility] INC INC QUANTTATI VE COLONY COUNT URINE CULTURE 75126 MAS[facility] MEREDITH BCT 2 [facility] ISOL&PRSM INC INC PTV ID ISOLATE EA URINE SUSCEPTIB 15472 MASOUD MEREDITH LTY STDY 2 [facility] ANTIMICRB INC INC IAL MICRO/AGA R DILUTJ COMPREHEN 06325 MASOUD MEREDITH SIVE 2 [facility] [place] [address] SLADE SLADE ABDOMEN & 2 LAUREN LAUR[place] [address] MASOUD MEREDITH INFUSION 2 [facility] THER INC INC PROPH ADDL SEQUENTIA L TO 1 [place] [address] MASOUD MEREDITH LIPASE 2 [place] [address] MASOUD MEREDITH AMYLASE 2 [facility] INC INC BLOOD 42552 MAS[facility]D MEREDITH COUNT 2 [facility] COMPLETE INC INC AUTO&AUTO DIFRNTL WBC BLOOD 74951 MASOUD MEREDITH COUNT 1 [facility] COMPLETE INC INC AUTO&[place] [address] MASOUD MEREDITH AMYLASE 1 [facility] INC INC ECG 49621 MASOUD MEREDITH ROUTINE 1 [facility] ECG INC INC W/LEAST 12 LDS TRCG ONLY W/O I&R CREATINE 65917 MASOUD MEREDITH KINASE MB 1 [facility] FRACTION INC INC ONLY CREATINE 31313 MASOUD MEREDITH KINASE 1 [facility] [place] [address] MASOUD MEREDITH LIPASE 1 [place] [address] MASOUD MEREDITH TROPONIN 1 [facility] QUANTITAT INC INC DAVE GLUC BLD 39810 MASOUD MEREDITH GLUC MNTR 1 [facility] DEV [place] [address] MASOUD MEREDITH INFUSION 1 [facility] THER INC INC PROPH ADDL SEQUENTIA L TO 1 HR INJECTION J2405 [facility]D MEREDITH 1 [facility] ONDANSETR INC INC ON HCL PER 1 MG COMPREHEN 66571 MASOUD MEREDITH SIVE 1 [facility] METABOLIC INC INC PANEL ECG 91139 ELI BENITEZ ROUTINE 1 III WHIT III WHIT ECG W/LEAST 12 LDS [place] [address] MASOUD MEREDITH INFUSION 1 [facility] THERAPY/P INC INC ROPHYLAXI S /DX 1ST TO 1 HR RADIOLOGI 14738 MASOUD MASOUD C 1 [facility] EXAMINATI INC INC ON CHEST SINGLE VIEW FRONTAL RADIOLOGI 80689 [place] SLADE C 1 MEDICAL LAUREN EXAMINATI IMAGING ON KNEE 3 ASS VIEWS RADEX 75641 [facility] SPINE 1 MEDICAL LAUREN LUMBOSACR IMAGING AL ASS MINIMUM 4 VIEWS SBSQ 96150 [facility] 1 CARE/DAY 15 MINUTES SBSQ 59213 [facility] 1 CARE/DAY 25 MINUTES INITIAL 07965 [facility] INPATIENT 1 CONSULT NEW/ESTAB PT 20 MIN RADIOLOGI 15818 [place] SLADE C 1 MEDICAL LAUREN EXAMINATI IMAGING ON CHEST ASS SINGLE VIEW FRONTAL ECG 46093 MASOUD MEREDITH ROUTINE 1 [facility] ECG INC INC W/LEAST 12 LDS TRCG ONLY W/O I&R CREATINE 71755 MAS[facility] MEREDITH KINASE MB 1 [facility] FRACTION INC INC ONLY BLOOD 77903 [facility] MEREDITH COUNT 1 [facility] COMPLETE INC INC AUTO&[place] [address] [facility] MEREDITH TROPONIN 1 [facility] QUANTITAT INC INC DAVE CREATINE 74508 [facility] MEREDITH KINASE 1 [facility] TOTAL INC INC ECG 37941 MASOUD IBARHIMA DWI ROUTINE 1 [facility] W/LEAST P 12 LDS I&R ONLY COMPREHEN 15360 [facility]EDITH SIVE 1 [facility] METABOLIC INC INC PANEL RADIOLOGI 67178 [place] SLADE C 1 MEDICAL LAUREN EXAMINATI IMAGING ON PELVIS ASS 1/2 VIEWS RADEX HIP 81473 [facility] SLADE 1 MEDICAL LAUREN UNILATERA IMAGING L ASS COMPLETE MINIMUM 2 VIEWS 3D 15203 [facility] RENDERING 1 MEDICAL LAUREN W/INTERP IMAGING & [place] [address] BEATRI[place] SLADE HEAD/BRAI 1 MEDICAL LAUREN N W/O IMAGING CONTRAST ASS MATERIAL RADIOLOGI 77451 [facility] SL[facility] C EXAM 1 MEDICAL LAUREN CHEST 2 IMAGING VIEWS [place] FRONTAL&[place] [address] [facility] SLADE ABDOMINAL 1 MEDICAL LAUREN REAL IMAGING TIME ASS W/IMAGE LIMITED ECG 56594 [facility] LAUREN ROUTINE 1 EMERGENCY ECG SERVICES W/LEAST 12 LDS I&R ONLY ECG 51164 MASOUD RAMIREZE ROUTINE 1 [facility] W/LEAST P 12 LDS I&R ONLY RADIOLOGI 80696 [facility] C EXAM 1 MEDICAL LAUREN CHEST 2 IMAGING VIEWS ASS FRONTAL&[place] [address] BEATRIZ SLADE HEAD/BRAI 1 MEDICAL LAUREN N W/O IMAGING CONTRAST ASS MATERIAL 3D 83989 [facility] SL[facility] RENDERING 1 MEDICAL LAUREN W/INTERP IMAGING & ASS POSTPROCE SS SUPERVISI ON BLOOD 61509 MASOUD MEREDITH COUNT 1 [facility] COMPLETE INC INC AUTO&AUTO DIFRNTL WBC IAADI 25301 MASOUD MEREDITH INFFLUENZ 1 [facility] A A VIRUS INC INC IAADI 17713 MASOUD MEREDITH INFLUENZA 1 [facility] B VIRUS INC INC CULTURE 58978 MAS[facility]D MEREDITH BACTERIAL 1 [facility] BLOOD INC INC AEROBIC W/ID ISOLATES URNLS DIP 37977 [facility] RIVERAON 1 [facility] STICK/TAB INC INC LET REAGENT AUTO MICROSCOP Y BASIC 98931 MASOUD MEREDITH METABOLIC 1 [facility] PANEL INC INC CALCIUM TOTAL ALS A0398 [facility] DENIS ROUTINE 1 [facility] AM[facility]ULANCE DISPOSABL SERVICE SERVICE E SUPPLIES GROUND A0425 ADEEL DENIS MILEAGE 1 [facility] AM[facility]ANCE PER SERVICE SERVICE STATUTE MILE AMB A0427 [facility] SERVICE 1 AMBULANCE AMBULANCE ALS SERVICE SERVICE EMERGENCY TRANSPORT LEVEL 1 OBSERVATI 09378 [facility] ON CARE 1 DON DON DISCHARGE MANAGEMEN T MYOCARDIA 45547 MASOUD MEREDITH L SPECT 1 [facility] MULTIPLE INC INC STUDIES CV STRS 83391 [facility] FALLUJI TST 1 PHYSICIAN XAVIER XERS&/OR S GROUP RX CONT ECG W/O I&R CV STRS 41501 MAS[facility]D MEREDITH TST 1 [facility] XERS&/OR INC INC RX CONT ECG TRCG ONLY CREATINE 97768 MASOUD MEREDITH KINASE MB 1 [facility] FRACTION INC INC ONLY HOSPITAL G0378 MASOUD MEREDITH OBSERVATI 1 [facility] [place] [address] MASOUD MEREDITH TROPONIN 1 [facility] QUANTITAT INC INC DAVE CREATINE 10491 MAS[facility] MEREDITH KINASE 1 [facility] TOTAL INC INC COMPREHEN 69880 MAS[facility] MEREDITH SIVE 1 [facility] METABOLIC INC INC PANEL ECG 77131 MASOUD THOMPSON ROUTINE 1 [facility] W/LEAST P 12 LDS I&R ONLY NONINVASI 00406 [facility] MEREDITH VE 1 [facility] EAR/PULSE INC INC OXIMETRY SINGLE DETER RADIOLOGI 98541 BEATRIZ Sanches 1 MEDICAL LAUREN EXAMINATI IMAGING ON CHEST ASS SINGLE VIEW FRONTAL CREATINE 85308 [facility] KINASE 1 [facility] [place] [address] [facility] MERED[facility] TROPONIN 1 [facility] QUANTITAT INC INC DAVE BLOOD 10767 [facility]ED[facility] COUNT 1 [facility] COMPLETE INC INC AUTO&AUTO DIFRNTL WBC FIBRIN 60502 [facility] DGRADJ 1 [facility] PRODUCTS INC INC D-DIMER QUAL/[facility] [id number] [facility] MERED[facility] OBSERVATI 1 [facility] ON INC INC SERVICE PER HOUR CREATINE 10228 MAS[facility]D MEREDITH KINASE MB 1 [facility] FRACTION INC INC ONLY ECG 45799 [facility] MEREDITH ROUTINE 1 [facility] ECG INC INC W/LEAST 12 LDS TRCG ONLY W/O I&R BASIC 29237 MAS[facility]D [facility] METABOLIC 1 [facility] PANEL INC INC CALCIUM TOTAL INITIAL 54564 AMIRA COLLIER OBSERVATI 1 DON DON ON CARE/DAY 50 MINUTES INITIAL 49032 [facility] INPATIENT 1 PHYSICIAN XAVIER CONSULT S GROUP NEW/ESTAB PT 80 MIN URNLS DIP 29040 [facility] RIVERAON 0 [facility] STICK/TAB INC INC LET REAGENT AUTO MICROSCOP Y CREATINE 80468 MASOUD RIVERAON KINASE MB 0 [facility] FRACTION INC INC ONLY IAADI 09156 MAS[facility]D MEREDITH INFFLUENZ 0 [facility] A A VIRUS INC INC IAADI 43225 MAS[facility] MERED[facility] INFLUENZA 0 [facility] B VIRUS INC INC BLOOD 76428 [facility] MEREDITH COUNT 0 [facility] COMPLETE INC INC AUTO&[place] [address] [facility] MEREDITH TROPONIN 0 [facility] QUANTITAT INC INC DAVE CREATINE 03653 MAS[facility]D MEREDITH KINASE 0 [facility] TOTAL INC INC RADIOLOGI 26466 [facility] CEBALLOS C EXAM 0 MEDICAL KATHERIN CHEST 2 IMAGING VIEWS ASS FRONTAL&[place] [address] MASOUD MEREDITH INFUSION 0 [facility] THERAPY/P INC INC ROPHYLAXI S /DX 1ST TO 1 HR COMPREHEN 31702 [facility] SIVE 0 [facility] [address] COMBINED COMBINED AMYLASE 0 PHYSICIAN PHYSICIAN S LA S LA GENERAL 99972 COMBINED COMBINED HEALTH 0 PHYSICIAN [place] [address] ROGER ARREDONDO CLAVICULA 0 EMERGENCY AMIRA S R SERVICES FRACTURE W/O ASSOCIATE MANIPULAT S ION RADEX 33642 MAS[facility]D MEREDITH SHOULDER 0 [facility] COMPLETE INC INC MINIMUM 2 VIEWS IAADIADOO 88108 AMIRA COLLIER, 0 DON R DON R STREPTOCO CCUS GROUP A RADIOLOGI 66371 [facility] MEREDITH C 0 [facility] EXAMINATI INC INC ON PELVIS 1/2 VIEWS RADEX HIP 84087 MAS[facility] MEREDITH 0 [facility] UNILATERA INC INC L COMPLETE MINIMUM 2 [place] [address] MASOUD MEREDITH LIPASE 9 [facility] INC INC BLOOD 67738 MASOUD MEREDITH COUNT 9 [facility] COMPLETE INC INC AUTO&[place] [address] MASOUD MEREDITH AMYLASE 9 [place] [address] MASOUD MEREDITH ABDOMEN 9 [facility] W/O INC INC CONTRAST MATERIAL COMPREHEN 31519 MASOU[facility] MEREDITH SIVE 9 [facility] [place] [address] MASOUD MEREDITH INFUSION 9 [facility] THERAPY/P INC INC ROPHYLAXI S /DX 1ST TO 1 HR RHYTHM 84792 MASOUD MEREDITH ECG 1-3 9 [facility] LEADS INC INC TRACING ONLY W/O I&R URNLS DIP 02023 MASOUD MEREDITH 9 [facility] H[facility] STICK/TAB INC INC LET REAGENT AUTO MICROSCOP Y BASIC 59779 MASOUD MEREDITH METABOLIC 9 [facility] PANEL INC INC CALCIUM TOTAL CT PELVIS 16614 MASOUD MEREDITH W/O 9 [facility] CONTRAST INC INC MATERIAL 3D 04668 MASOUD MEREDITH RENDERING 9 [facility] INC INC W/INTERP& [place] [address] MASOUD MEREDITH INFUSION 9 [facility] THERAPY INC INC PROPHYLAX IS/DX EA HOUR GROUND A0425 [facility] 9 AMBULANCE AMBULANCE PER SERVICE SERVICE STATUTE MILE AMBULANCE A0429 [facility] SERVICE 9 AMBULANCE AMBULANCE BLS SERVICE SERVICE EMERGENCY TRANSPORT GROUND A0425 [facility]UL[facility] PER SERVICE SERVICE STATUTE MILE AMB A0427 [facility] SERVICE 8 AMBULANCE AMBULANCE ALS SERVICE SERVICE EMERGENCY TRANSPORT LEVEL 1 AMB A0422 [facility] OXYGEN&O2 8 AMBULANCE AMBULANCE SUPPLIES SERVICE SERVICE LIFE SUSTAININ G SITUATION BASIC 08656 MASOUD MEREDITH METABOLIC 8 [facility] PANEL INC INC CALCIUM TOTAL RHYTHM 27659 MASOUD MEREDITH ECG 1-3 8 [facility] LEADS INC INC TRACING ONLY W/O I&R ECG 58460 MASOUD [place], CAROLEE 8 [facility] W/LEAST PROF SERV 12 LDS I&R ONLY RADIOLOGI 68994 Verónica CASTRO EXAMINATI IMAGING ON CHEST ASSOCIATE SINGLE S VIEW FRONTAL CREATINE 45065 MASOUD MEREDITH KINASE MB 8 [facility] FRACTION INC INC ONLY RADEX 85131 MASOUD MEREDITH FOOT 8 [facility] COMPLETE INC INC MINIMUM 3 VIEWS BLOOD 63896 MASOUD MEREDITH COUNT 8 [facility] COMPLETE INC INC AUTO&[place] [address] MASOUD MEREDITH TROPONIN 8 [facility] QUANTITAT INC INC DAVE NATRIURET 50674 MASOUD MEREDITH IC 8 [facility] PEPTIDE INC INC CREATINE 32589 MASOUD MEREDITH KINASE 8 [facility] TOTAL INC INC ECG 12384 MASOUD MEREDITH ROUTINE 8 [facility] ECG INC INC W/LEAST 12 LDS TRCG ONLY W/O I&R NONINVASI 62247 MASOUD MEREDITH VE 8 [facility] EAR/PULSE INC INC OXIMETRY OVERNIGHT MONITOR RADIOLOGI 29055 Verónica MARION EXAM 8 MEDICAL TAZ P CHEST 2 IMAGING VIEWS ASSOCIATE FRONTAL&L S ATERAL RHYTHM 59733 MASOUD MEREDITH ECG 1-3 8 [facility] HOS[facility] LEADS INC INC TRACING ONLY W/O I&R [place] NFS 61817 MASOUD MEREDITH THER 8 [facility] PROPH/DX INC INC 1ST >1 HR IV NFS 19213 MASOUD MEREDITH THER 8 [facility] PROPH/DX INC INC 1ST >1 HR IV NFS 87250 MASOUD MEREDITH THER 8 [facility] PROPH/DX INC INC 1ST >1 HR [facility]OSPITAL 00468 [facility] 8 DON R DON R DAY MANAGEMEN T 30 MIN/< SBSQ 50981 [facility] 8 DON R DON R CARE/DAY [address] PELVIS 04973 [place], W/O 8 [facility] CONTRAST IMAGING MATERIAL ASSOCIATE S 3D 79799 [place], RENDERING 8 [facility] IMAGING W/INTERP& ASSOCIATE POSTPROC S DIFF WORK STATION INITIAL 84218 [facility] 8 DON R DON R CARE/[place] [address] [place] [address] [facility] ABDOMEN 8 [facility] W/O IMAGING CONTRAST ASSOCIATE MATERIAL S THER 31611 MASOUD MEREDITH PROPH/DX 8 [facility] NJX INC INC SUBQ/IM URNLS DIP 42126 MASOUD MEREDITH 8 [facility] STICK/TAB INC INC LET REAGENT AUTO MICROSCOP Y THER 25405 [facility] PROPH/DX 8 [facility] SUBQ/IM RADIOLOGI 45744 [facility] [address] [place] [address] ON CHEST SINGLE VIEW FRONTAL COLLECTIO 63386 [facility] N VENOUS 8 [facility] VENIPUNCT URE ECG 57933 JUAREZ PIZARR[address] ROUTINE [address] [facility] W/LEAST 12 LDS TRCG ONLY W/O I&R CREATINE 70309 PENA BLANCA [facility] KINASE [address] [place] [address] [place] [address] [facility] TROPONIN 8 [facility] DAVE BLOOD 81448 [facility] MACIASON COUNT 8 [facility] AUTO&AUTO DIFRNTL WBC BASIC 63991 [facility] METABOLIC 8 [facility] CALCIUM TOTAL ESOPHAGOG 37191 [facility] ASTRODUO 8 , ANA , ANA ENOSCOPY TRANSORAL DIAGNOSTI C SBSQ 22309 [facility] 8 , ANA , ANA CARE/DAY 15 MINUTES HEPATBL 49922 [facility] RACH CEBALLOS SYS 8 MEDICAL TAZ Larsen IMG IMAGING GLBLDR ASSOCIATE S 81757 [facility] KARINA JUNE 8 MEDICAL MAN[facility] REAL IMAGING TIME ASSOCIATE W/IMAGE S DOCUMENTA TION Encounters Encounter Start End Date Code Location Performer Type Date HOSPITAL MASOUD - 7 7 [facility] OUTPATIEN INC T HOSPITAL MASOUD - 6 6 [facility] OUTPATIEN [facility] EMERGENCY 29721 [facility] RENAE 6 6 PHYSICIAN U JERICHO DEPARTMEN S, [facility] T VISIT HIGH/URGE NT SEVERITY HOSPITAL MASOUD - 6 6 [facility] OUTPATIEN [facility] EMERGENCY 69395 MASOUD 6 6 [facility] T VISIT LOW/MODER SEVERITY OFFICE 10461 [facility] OUTPATIEN 6 6 [facility] VISIT INTERNAL 15 MED MINUTES HOSPITAL UNIVERSIT - 6 6 [place] [facility]IENT [facility] PSYCH EMERGENCY 48847 [facility] WALL DEPT 6 6 PHYSICIAN VISIT S, PLLC HIGH SEVERITY& THREAT FUNCJ EMERGENCY 48467 [facility] RENAE DEPT 6 6 PHYSICIAN U JERICHO VISIT S, PLLC HIGH SEVERITY& THREAT FUNCJ OFFICE 43514 [facility] OUTPATIEN 6 6 [facility] T VISIT INTERNAL 15 MED MINUTES OFFICE 48810 [facility] OUTPATIEN 6 6 [facility] T VISIT INTERNAL 15 MED MINUTES EMERGENCY 54817 [facility] MILNER JR 5 5 PHYSICIAN JAM DEPARTMEN S, PLLC T VISIT HIGH/URGE NT SEVERITY OFFICE 05381 [facility] OUTPATIEN 5 5 [facility] T VISIT INTERNAL 15 MED MINUTES EMERGENCY 87297 [facility] YOUNG MOH 5 5 PHYSICIAN DEPARTMEN S, PLLC T VISIT HIGH/URGE NT SEVERITY EMERGENCY 40363 [facility] MUNOZ 5 5 PHYSICIAN DEPARTMEN S, PLLC T VISIT HIGH/URGE NT SEVERITY OFFICE 89896 [facility] OUTPATIEN 4 4 [facility] T VISIT INTERNAL 15 MED MINUTES HOSPITAL MAS[facility]D - 4 4 [facility] OUTPATIEN INC T OFFICE 54735 [facility] OUTPATIEN 4 4 [facility] T VISIT INTERNAL 15 MED MINUTES EMERGENCY 10667 [facility] ALFARIS DEPT 4 4 [facility] VISIT HIGH SEVERITY& THREAT FUNCJ EMERGENCY 75299 [facility] 4 4 BRO BRO DEPARTMEN T VISIT HIGH/URGE NT SEVERITY SPECIAL [facility] [address] - OTHER GROUP [facility] SPECIAL [facility] 4 [address] - OTHER GROUP [facility] HOSPICE HOSPICE 4 4 OF [facility]OSP[facility] HOSPICE 4 4 OF [facility] HOSP[facility] HOSPICE 4 4 OF [facility] HOSPICE HOSPICE 4 4 OF [facility] HOSPICE HOSPICE 4 4 OF [facility] HOSPICE HOSPICE 4 4 OF [facility] HOSPICE HOSPICE 4 4 OF THE [facility] HOSPICE 3 3 OF THE [facility] EMERGENCY 05210 ALFARIS ALFARIS DEPT 3 3 [facility] VISIT HIGH SEVERITY& THREAT FUN HOSPITAL MASOUD - 3 3 [facility] OUTPATIEN INC T EMERGENCY 88196 ROGER WALLS DEPT 3 3 EMERGENCY VISIT SERVICES HIGH SEVERITY& THREAT FUNCJ EMERGENCY 62416 ELI BENITEZ DEPT 3 3 III WHIT III WHIT VISIT HIGH SEVERITY& THREAT FUNCJ EMERGENCY 78348 RON VELASQUEZ 3 3 [facility] DEPARTMEN T VISIT MODERATE SEVERITY EMERGENCY 82747 MASOUD 3 3 [facility] DEPARTMEN INC T VISIT LOW/MODER SEVERITY HOSPITAL MASOUD - 3 3 [facility] OUTPATIEN INC T EMERGENCY 06387 ROGER FIELDS DEPT 3 3 EMERGENCY WHIT VISIT SERVICES HIGH SEVERITY& THREAT FUN OFFICE 76170 [facility] 3 [facility] T VISIT 25 MINUTES HOSPITAL MASOUD - 3 3 [facility] OUTPATIEN INC T EMERGENCY 24385 ROGER OCASIO DEPT 3 3 EMERGENCY VISIT SERVICES HIGH SEVERITY& THREAT FUNJ EMERGENCY 76448 MASOUD 3 3 [facility] DEPARTMEN INC T VISIT HIGH/URGE NT SEVERITY EMERGENCY 51076 MASOUD 3 3 [facility] DEPARTMEN INC T VISIT LOW/MODER SEVERITY HOSPITAL MASOUD - 3 3 [facility] OUTPATIEN INC T EMERGENCY 35878 ELI BENITEZ 3 3 III WHIT III WHIT DEPARTMEN T VISIT HIGH/URGE NT SEVERITY OFFICE 89699 [facility]AY [facility] 2 2 [facility] T VISIT 15 MINUTES EMERGENCY 13683 ELI BENITEZ DEPT 2 2 III WHIT III WHIT VISIT HIGH SEVERITY& THREAT FUNCJ OFFICE 75022 [facility] OUTPATIEN 2 2 [facility]LES T VISIT 25 MINUTES HOSPITAL MASOUD - 2 2 [facility] OUTPATIEN INC T EMERGENCY 97462 MASOUD 2 2 [facility] DEPARTMEN INC T VISIT HIGH/URGE NT SEVERITY HOSPITAL MASOUD - 2 2 [facility] OUTPATIEN INC T EMERGENCY 60438 ARNULFO ARREDONDO DEPT 2 2 GUSTAVO GUSTAVO VISIT HIGH SEVERITY& THREAT FUNJ EMERGENCY 84061 ROGER FIELDS DEPT 2 2 EMERGENCY WHIT VISIT SERVICES HIGH SEVERITY& THREAT FUNJ OFFICE 42928 [facility] OUTPATIEN 2 2 CHARLES CHARLES T VISIT 25 MINUTES HOSPITAL MASOUD - 2 2 [facility] OUTPATIEN INC T HOSPITAL MASOUD - 2 2 [facility] OUTPATIEN INC T EMERGENCY 39460 ROGER OCASIO DEPT 2 2 EMERGENCY VISIT SERVICES HIGH SEVERITY& THREAT FUNJ EMERGENCY 10110 ROGER OCASIO DEPT 2 2 EMERGENCY VISIT SERVICES HIGH SEVERITY& THREAT FUNCJ OFFICE 22132 MCKEMIE MCKEMIE OUTPATIEN 2 2 JR WHIT JR WHIT T VISIT 15 MINUTES OFFICE 41879 MCKEMIE MCKEMIE OUTPATIEN 2 2 JR WHIT JR WHIT T VISIT 15 MINUTES OFFICE 09046 MCKEMIE MCKEMIE OUTPATIEN 2 2 JR WHIT JR WHIT T VISIT 15 MINUTES EMERGENCY 29127 DIAMOND FIELDS DEPT 2 2 WHIT WHIT VISIT HIGH SEVERITY& THREAT FUNCJ OFFICE 96971 MCKEMIE MCKEMIE OUTPATIEN 2 2 JR WHIT JR WHIT T VISIT 15 MINUTES EMERGENCY 20298 ROGER WALLS DEPT 2 2 EMERGENCY VISIT SERVICES HIGH SEVERITY& THREAT FUNC OFFICE 14257 AMIRA COLLIER OUTPATIEN 2 2 DON DON T VISIT 25 MINUTES HOSPITAL MASOUD - 2 2 [facility] OUTPATIEN INC T EMERGENCY 07244 PEREZ NA PEREZ NA DEPT 2 2 VISIT HIGH SEVERITY& THREAT FUNCJ EMERGENCY 74353 MASOUD 2 2 [facility] DEPARTMEN INC T VISIT HIGH/URGE NT SEVERITY EMERGENCY 14735 ELI BENITEZ DEPT 1 1 III WHIT III WHIT VISIT HIGH SEVERITY& THREAT FUNCJ EMERGENCY 67182 MASOUD 1 1 [facility] DEPARTMEN INC T VISIT HIGH/URGE NT SEVERITY HOSPITAL MASOUD - 1 1 [facility] OUTPATIEN [facility] T EMERGENCY 25688 MASOUD 1 1 [facility] DEPARTMEN INC T VISIT LOW/MODER SEVERITY EMERGENCY 90045 ROGER BENITEZ 1 1 EMERGENCY III [facility] SERVICES T VISIT HIGH/URGE NT SEVERITY HOSPITAL MASOUD - 1 1 [facility] OUTPATIEN [facility] HOSPITAL MASOUD - 1 1 [facility] OUTPATIEN INC T EMERGENCY 82530 MASOUD DEPT 1 1 [facility] VISIT INC HIGH SEVERITY& THREAT FUNCJ EMERGENCY 78528 MASOUD 1 1 [facility] DEPARTMEN [facility] T VISIT HIGH/URGE NT SEVERITY OFFICE 26962 AMIRA COLLIER OUTPATIEN 1 1 DON DON T VISIT 15 MINUTES EMERGENCY 54380 ROGER AGUILAR DEPT 1 1 EMERGENCY VISIT SERVICES HIGH SEVERITY& THREAT FUNC HOSPITAL MASOUD - 1 1 [facility] OUTPATIEN INC T EMERGENCY 76104 MASOUD 1 1 [facility] DEPARTMEN INC T VISIT HIGH/URGE NT SEVERITY EMERGENCY 80278 MASOUD 1 1 [facility] DEPARTMEN INC T VISIT HIGH/URGE NT SEVERITY EMERGENCY 56415 ROGER DAVIS AND DEPT 1 1 EMERGENCY VISIT SERVICES HIGH SEVERITY& THREAT FUN HOSPITAL MASOUD - 1 1 [facility] OUTPATIEN INC T EMERGENCY 84248 MASOUD 0 0 [facility] DEPARTMEN INC T VISIT HIGH/URGE NT SEVERITY HOSPITAL MASOUD - 0 0 [facility] OUTPATIEN [facility] T EMERGENCY 09358 ROGER BENITEZ DEPT 0 0 EMERGENCY III WHIT VISIT SERVICES HIGH SEVERITY& THREAT FUNCJ EMERGENCY 97300 ROGER ARREDONDO, 0 0 [facility]ISIT HIGH/URGE ASSOCIATE NT S SEVERITY HOSPITAL MASOUD - 0 0 [facility] OUTPATIEN INC T EMERGENCY 02070 MASOUD 0 0 [facility] T VISIT LOW/MODER SEVERITY OFFICE 48567 AMIRA COLLIER OUTPATIEN 0 0 DON R DON R T VISIT 15 MINUTES OFFICE 61954 AMIRA COLLIER OUTPATIEN 0 0 DON R DON R T VISIT 15 MINUTES EMERGENCY 02880 ROGER BENITEZ 0 0 EMERGENCY III, DEPARTMEN SERVICES TAMARA T VISIT MODERATE ASSOCIATE SEVERITY S HOSPITAL MASOUD - 0 0 [facility] OUTPATIEN INC T EMERGENCY 98635 MAS[facility]D 0 0 [facility] VIS[facility] LOW/MODER SEVERITY OFFICE 97076 AMIRA COLLIER OUTPATIEN 9 9 DON R DON R T VISIT 15 MINUTES HOSPITAL MASOUD - 9 9 [facility] OUTPATIEN INC T EMERGENCY 48700 MASOUD 9 9 [facility] T VISIT HIGH/URGE NT SEVERITY EMERGENCY 81068 ROGER ARREDONDO, DEPT 9 9 EMERGENCY AMIRA S VISIT SERVICES HIGH SEVERITY& ASSOCIATE THREAT S [facility] EMERGENCY 56849 SENA JOYNER, DEPT 8 8 [employer] E VISIT CORPORATI HIGH ON SEVERITY& THREAT [facility] EMERGENCY 76977 MASOUD 8 8 [facility] T VISIT HIGH/URGE NT SEVERITY HOSPITAL MASOUD - 8 8 [facility] OUTPATIEN [facility] HOSPITAL MASOUD - 8 8 [facility] EMERGENCY 28284 MASOUD 8 8 [facility] T VISIT LOW/MODER SEVERITY HOSPITAL MASOUD - 8 8 [facility] 82256 MASOUD 8 8 [facility] T VISIT LOW/MODER SEVERITY OFFICE 81139 AMIRA COLLIER OUTPATIEN 8 8 DON R DON R T VISIT 15 MINUTES HOSPITAL MASOUD - 8 8 [facility] MASOUD - 8 8 [facility] MASOUD - 8 8 [facility] INPATIENT [facility] EMERGENCY 86075 MASOUD 8 8 [facility] T VISIT LIMITED/M INOR PROB HOSPITAL MASOUD [facility] 8 8 [facility] JUAREZ - 8 8 [facility] EMERGENCY 88032 JUAREZ 8 8 [facility] T VISIT MODERATE SEVERITY OFFICE 17291 [facility] 8 8 , ANA PEREZ T VISIT 15 MINUTES
--- OUTSIDE RECORDS SUMMARY | 2017-04-01 06:43 | External Medical Summary Rpt ---
Author Author , Organization [employer] Address Unknown Phone Unavailable Care Team Providers Care Shift Stacker Name Role Phone AIR METHODS KENT, Unavailable Unavailable [facility] AIR METHODS KENT, Unavailable Unavailable [facility] ALFARIS MOH, ALFARIS Unavailable Unavailable MOH ALFARIS MOH, ALFARIS Unavailable Unavailable MOH [facility] Unavailable Unavailable RESPONSE, [facility] RESPONSE [facility] Unavailable Unavailable RESPONSE, [facility]PONSE DEE GABRIELA, DEE Unavailable Unavailable [...] SERV MUNOZ ALL, MUNOZ ALL Unavailable Unavailable [facility] Unavailable Unavailable [facility] Unavailable Unavailable [facility] Unavailable [facility]available SERVICE, [facility] Unavailable Unavailable SERVICE, [facility] LEÓN KET, LEÓN KET Unavailable Unavailable LEÓN KET, LEÓN KET Unavailable Unavailable GREEN CAR, GREEN Unavailable Unavailable CAR [facility] Unavailable Unavailable LLC, [facility] NERI EMERY, Unavailable Unavailable JR. NERI [...] Unavailable [facility]available [facility] [place] [place] ECKERLINE JR ENRI, Unavailable Unavailable ECKERLINE JR NERI FALLUJI XAVIER, [...] Unavailable HAMON AND, [facility]ON AND Unavailable Unavailable [facility] Unavailable Unavailable INC, [facility] Unavailable [facility]available [facility]PITAL P, [facility] NELSY, VICKI, NELSY, Unavailable Unavailable VICKI [facility], Unavailable Unavailable [facility] Unavailable [place]available [place], [facility] [place] RAKESH MELVIN, RAKESH MELVIN Unavailable Unavailable ESCUDERO MAE, ESCUDERO MAE Unavailable Unavailable DEUTSCH MARTA, DEUTSCH Unavailable Unavailable MARTA [facility] Un[facility] Unavailable [facility], [facility] ARTURO NICA, ARTURO Unavailable [...] DWI [facility] Unavailable Unavailable [facility], [facility] JEREMIAS ART, JEREMIAS Unavailable Unavailable ART ROGER PETEY, Unavailable Unavailable ROGER PETEY ROGER PETEY, Unavailable Unavailable ROGER PETEY [facility] Unavailable Unavailable SERVICES, [facility] AUDRAMINatalie JR WHIT, Unavailable Unavailable MCKEMIE JR WHIT MCKEMIE JR WHIT, Unavailable Unavailable MCKEMIE JR WHIT MERHAR GAR, MERHAR Unavailable Unavailable GAR TUCKER KATHERIN, TUCKER Unavailable Unavailable KATHERIN TUCKER, TAZ P, Unavailable Unavailable TUCKER, TAZ P TAYLOR SHAWANDA, TAYLOR SHAWANDA Unavailable Unavailable TAYLOR SHAWANDA, TAYLOR HSAWANDA Unavailable Unavailable SHERYL KWA, SHERYL KWA Unavailable [...] PHARM #[id number] [facility] Unavailable Unavailable [id number] [address] [id number], [facility] [id number] [address] [id number] RUSCHMAN DIANE, Unavailable Unavailable RUSCHMAN [...] JAM HERMINIA STARK, Unavailable Unavailable HERMINIA STARK [facility] Unavailable [facility]available [facility] Unavailable Unavailable PSYCH, [facility] VILLARAN YUR, Unavailable Unavailable VILLARAN YUR VILLARAN YUR, Unavailable Unavailable VILLARAN YUR [facility] Unavailable Unavailable #591, [facility] # Unavailable Unavailable [id number], [facility] # [id number] WEHRMAN III WHIT, Unavailable Unavailable WEHRMAN III [...] [facility] K921 MELENA 07-11-2016 [facility] R1013 EPIGASTRIC 07-11-2016 [facility] R102 PELVIC AND 07-11-2016 [place] [place] PERINEAL [facility] PAIN [facility] L509 URTICARIA 06-12-2016 [facility] UNSPECIFIED HOME MEDICAL EQUIPME I8500 ESOPHAGEAL 05-21-2016 [facility] VARICES ANESTH OF WITHOUT THE BLUE BLEEDING K3189 OTHER 05-21-2016 [facility] DISEASES OF SERV STOMACH FOUNDATION AND DUODENUM K766 PORTAL 05-21-2016 [facility] HYPERTENSIO [facility] N INC [id number] EPILEPSY 04-22-2016 [facility] UNS NOT MEM HOSP [...] UNSPECIFIED TRANSPORTAT ION SER F1022 ALCOHOL 03-14-2016 [place] [facility] WITH PSYCH INTOXICATIO N I8510 SECONDARY 03-14-2016 [place] ESOPHAGEAL [facility] VARICES PSYCH WITHOUT BLEEDING Q21444 PAIN IN 03-14-2016 [place] UNSPECIFIED MEDICAL HIP IMAGING ASS Y83991 PAIN IN 03-14-2016 [place] [facility] LEFT LEG SERV FOUNDATION R079 CHEST PAIN 03-14-2016 [place] UNSPECIFIED MEDICAL IMAGING ASS C5355SE UNSPECIFIED 03-14-2016 [place] INJURY OF MEDICAL PELVIS IMAGING ASS INITIAL ENCOUNTER [id number] UNS INJURY 03-14-2016 [facility] LT LOWER SERV LEG INITIAL FOUNDATION ENCOUNTER T07 UNSPECIFIED 03-14-2016 AIR [facility] MULTIPLE [place] INJURIES A014BMD FALL FROM 03-14-2016 [facility] OUT [place] OF/THROUGH BRIDGE INITIAL ENCNTR [id number] OTHER SPEC 03-14-2016 [facility] EVENTS SERV UNDETERMINE [facility] D INTENT INIT ENC Z043 ENCOUNTER 03-14-2016 [place] [facility] EXAM & SERV OBSERVATION FOUNDATION FOLLOW OTH ACCIDENT R110 NAUSEA 02-16-2016 [facility], [facility] E860 DEHYDRATION 02-12-2016 [facility], [facility] K5289 OTH SPEC 02-12-2016 [facility] NONINFECTIV PHYSICIANS, E [facility] GASTROENTER ITIS & COLITIS R109 UNSPECIFIED 02-12-2016 [place] ABDOMINAL [facility] PAIN INTERNAL MED R1110 VOMITING 02-12-2016 [facility]ICAL IMAGING ASS R112 NAUSEA WITH 02-12-2016 [facility] VOMITING PHYSICIANS, UNSPECIFIED [facility] R197 DIARRHEA 02-12-2016 [facility] UNSPECIFIED AMBULANCE SERVICE R4182 ALTERED 02-12-2016 [place] MENTAL [facility] STATUS INTERNAL UNSPECIFIED MED R0789 OTHER CHEST 01-02-2016 [facility] PAIN MEDICAL IM[facility] ASS R569 UNSPECIFIED 09-26-2015 [facility], CONVULSIONS [facility] M549 DORSALGIA 07-30-2015 [place] UNSPECIFIED [place] INTERNAL MED N12 TUBULO-INTE 07-30-2015 [place] RST [place] NEPHRITIS INTERNAL NOT SPEC MED ACUTE/CHRON J320 CHRONIC 07-21-2015 [place] MAXILLARY MEDICAL SINUSITIS IMAGING ASS J984 OTHER 07-21-2015 [place] DISORDERS MEDICAL OF LUNG IMAGING ASS M773MKP FRACTURE 07-21-2015 [facility] NASAL BONES [facility]YSICIANS, INITIAL PLLC ENCOUNTER CLOSED FX [id number] UNSPECIFIED 07-21-2015 [facility] INJURY OF PHYSICIANS, NOSE PLLC INITIAL ENCOUNTER [id number] MX FX RIBS 07-02-2015 [place] RT SIDE MEDICAL SUBSEQUENT IMAGING ASS ENC FX W/RTN HLNG [id number] UNDERDOS 07-02-2015 [place] UNS RX MEDS [facility] P SUBSTANCE INITIAL ENC Z9111 PATIENTS 07-02-2015 [place] NONCOMPLIAN [place] CE WITH INTERNAL DIETARY MED REGIMEN [id number] PT 07-02-2015 [facility] P MED REGIMEN OTH REASON J189 PNEUMONIA 06-30-2015 [facility] UNSPECIFIED PHYSICIANS, ORGANISM [facility] R05 COUGH 06-30-2015 [facility] 4280 CONGESTIVE 06-12-2015 [facility] HOME FAILURE MEDICAL UNSPECIFIED EQUIPME 51205 OTHER 02-08-2015 [facility] CONVULSIONS AMBULANCE SERVICE 65583 NAUSEA 02-08-2015 [facility] ALONE [facility]BULANCE SERVICE 7245 UNSPECIFIED 01-28-2015 [facility] BACKACHE AMBULANCE SERVICE 22334 ABDOMINAL 01-28-2015 [facility] PAIN OTHER AMBULANCE SPECIFIED SERVICE SITE 86337 UNSPECIFIED 01-12-2015 [facility] OF VULVA 412 OLD 01-11-2015 [facility] MYOCARDIAL SERV INFARCTION [facility] 7852 UNDIAGNOSED 01-11-2015 [facility] CARDIAC SERV MURMURS [facility] 78002 SHORTNESS 01-11-2015 [place] [facility]ICAL OF BREATH SERV [facility] 6238 OTHER 01-10-2015 [place] SPECIFIED MEDICAL NONINFLAMMA IMAGING ASS TORY DISORDER VAGINA 7231 CERVICALGIA 09-25-2014 [facility] 8020 NASAL 09-25-2014 [place] BONES, MEDICAL CLOSED IMAGING ASS FRACTURE 90131 HEAD 09-25-2014 [place] INJURY, MEDICAL UNSPECIFIED IMAGING ASS 46872 INJURY OF 09-25-2014 [place] FACE AND MEDICAL NECK OTHER IMAGING ASS AND UNSPECIFIED 54336 OTHER 08-14-2014 [place] [facility] SPECIFIED SERV DISORDER OF FOUNDATION STOMACH AND DUODENUM 5715 CIRRHOSIS 08-14-2014 [place] MEDICAL OF LIVER SERV WITHOUT FOUNDATION MENTION OF ALCOHOL 496 CHRONIC 05-17-[address] [facility] AIRW[address] HOME OBSTRUCTION MEDICAL NEC EQUIPME 3384 CHRONIC 04-17-2014 [place] PAIN VALLEY SYNDROME INTERNAL MED 85464 OTHER 04-17-2014 [place] ASCITES VALLEY INTERNAL MED 91222 UNSPECIFIED 03-13-2014 [facility] CONSTIPATIO INTERNAL N MED 06832 ABDOMINAL 03-06-2014 [facility] PAIN, LAUREN UNSPECIFIED SITE 2752 DISORDERS 03-05-2014 [facility] MAGNESIUM METABOLISM 2768 HYPOPOTASSE 03-05-2014 [facility] 5180 PULMONARY 03-05-2014 [facility] COLLAPSE LAUREN 5601 PARALYTIC 03-05-2014 [facility] ILEUS 11456 OTHER 03-05-2014 [facility] SPECIFIED LAUREN DISORDER OF INTESTINES 3319 UNSPECIFIED 02-07-2014 [facility] CEREBRAL LAUREN DEGENERATIO N 4730 CHRONIC 02-07-2014 [facility] MAXILLARY LAUREN SINUSITIS 4733 CHRONIC 02-07-2014 [facility] SPHENOIDAL LA[facility]EN SINUSITIS 7840 HEADACHE 02-07-2014 [facility] 44869 CHEST PAIN 02-07-2014 [facility] UNSPECIFIED LAUREN 7881 DYSURIA 01-20-2014 [facility] [place] 5718 OTHER 01-19-2014 [facility] CHRONIC LAUREN NONALCOHOLI C LIVER DISEASE V1279 PERSONAL 01-19-2014 [facility] HISTORY OTH LAUREN DISEASES DIGESTIVE DISEASE V4579 OTHER 01-19-2014 [facility] ACQUIRED LAUREN ABSENCE OF ORGAN 5609 UNSPECIFIED 12-27-[address] [facility] [place] [address] [facility] OBSTRUCTION 5728 OTHER 12-27-[address] [place] [address]QU[address] OF PL[address] [facility] CHRONIC LLC LIVER DISEASE 5789 UNSPECIFIED 12-27-[address] [facility] OF LLC GASTROINTES TINAL TRACT 7197 DIFFICULTY 12-27-[address] [address] [facility] LLC 49780 CRAMP OF 12-27-[address] [facility] 53859 UNSPEC 11-21-2013 [facility] EPILEPSY EXTENDED WITHOUT CARE SERV MENTION INTRACT EPILEPSY 4561 ESOPHAGEAL 11-21-2013 [facility] VARICES EXTENDED WITHOUT CARE SERV MENTION OF BLEEDING 07591 OTHER 10-06-2013 SRI LANKAN GENERAL MEDICAL SYMPTOMS RESPONSE 91515 OTHER 09-14-2013 TAYLOR SHAWANDA FUNCTIONAL DISORDERS OF INTESTINE 7873 FLATULENCE 09-14-2013 TAYLOR SHAWANDA ERUCTATION AND GAS PAIN 43017 OTHER 09-10-2013 DISANTIS DISEASES OF [place] LUNG NOT ELSEWHERE CLASSIFIED 7822 LOCALIZED 09-10-2013 MAKI, III SUPERFICIAL WHIT SWELLING MASS OR LUMP 7867 ABNORMAL 09-10-2013 DISANTIS CHEST [place] SOUNDS 84934 OTHER 09-10-2013 DISANTIS NONSPECIFIC [place] ABNORMAL FINDING OF LUNG FIELD 7242 LUMBAGO 08-31-2013 GENARO DAVE V5882 ENCOUNTER 08-23-2013 MYRON FITTING&ADJ GIANCARLO NON-VASCULA R CATHETER NEC 5119 UNSPECIFIED 08-17-2013 SHANIKA JETT PLEURAL EFFUSION 5723 PORTAL 08-17-2013 TAYLOR SHAWANDA HYPERTENSIO N 75199 DISORDER OF 08-17-2013 TAYLOR SHAWANDA BONE AND CARTILAGE UNSPECIFIED V5881 FITTING AND 08-17-2013 SHANIKA JETT ADJUSTMENT OF VASCULAR CATHETER 5370 ACQUIRED 08-08-[address] HYPERTROPHI C PYLORIC STENOSIS 5647 MEGACOLON 08-08-[address] [place] [address] NAUSEA WITH 08-08-[address] VOMITING 93272 DIARRHEA 08-08-2013 GUILLERMO DARRYL 27321 ABDOMINAL 08-08-[address] PAIN, GENERALIZED 5679 UNSPECIFIED 06-27-2013 ARTURO NICA PERITONITIS 2819 UNSPECIFIED 06-18-2013 [facility] DEFICIENCY ANEMIA 2875 UNSPECIFIED 06-18-2013 [facility] [place] THROMBOCYTO PENIA 514 PULMONARY 06-17-2013 [facility] CONGESTION AND HYPOSTASIS 0389 UNSPECIFIED 06-12-2013 [facility] SEPTICEMIA SERV FOUNDATION 47878 OTHER 06-12-2013 SHERYL KWA CONDITIONS OF BRAIN 21560 ACUTE 06-12-2013 [facility] RESPIRATORY SERV FAILURE FOUNDATION 27135 SEVERE 06-12-2013 [facility] SEPSIS SERV FOUNDATION 2763 ALKALOSIS 06-11-2013 LEÓN KET 2851 ACUTE 06-11-2013 LEÓN KET POSTHEMORRH AGIC ANEMIA 51264 ACUTE 06-10-2013 [facility] ESOPHAGITIS JERICHO 62579 OTHER 06-10-2013 MOY RINCON ESOPHAGITIS 5780 HEMATEMESIS 06-10-2013 [facility] SERV FOUNDATION 7869 OTH 06-10-2013 DISANTIS SYMPTOMS [place] INVOLVING RESPIRATORY SYSTEM&CHES T 7954 OTHER 06-10-2013 [place] NONSPECIFIC JERICHO ABNORMAL HISTOLOGICA L FINDINGS 4240 MITRAL 06-09-2013 MARTA EMERY JR. NERI DISORDERS 262 OTHER 06-08-2013 ALFARIS MOH SEVERE PROTEIN-STORM ORIE MALNUTRITIO N 2639 UNSPECIFIED 06-08-2013 IBRAHIMA JR DWI PROTEIN-STORM ORIE MALNUTRITIO N 4589 UNSPECIFIED 06-08-2013 [facility] HYPOTENSION SERVICE 5990 URINARY 06-08-2013 ECKERLINE TRACT JR NERI INFECTION SITE NOT SPECIFIED 4941 BRONCHIECTA 06-07-2013 ADEEL SIS WITH AMBULANCE ACUTE SERVICE EXACERBATIO N V4984 BED 06-07-2013 [facility] CONFINEMENT AMBULANCE STATUS SERVICE V550 ATTENTION 05-31-2013 [facility] TO LAUREN TRACHEOSTOM Y E8889 UNSPECIFIED 05-27-2013 [facility] FALL LAUREN 67093 METHICILLIN 04-16-2013 MCCATALINAMINatalie JR WHIT SUSCEPTIBLE STAPH INF CCE & UNS SITE 0413 KLEBSIELLA 04-16-2013 MCDIYA JR PNEUMONIAE WHIT INFECTION 5920 CALCULUS OF 04-16-2013 [facility] KIDNEY LAUREN 7905 OTHER 04-16-2013 [facility] NONSPECIFIC EMERGENCY ABNORMAL SERVICES SERUM ENZYME LEVELS 5533 DIAPHRAGMAT 03-14-2013 [facility] KIERSTEN W/O LAUREN MENTION OBSTRUCTION /GANGREN 21817 OTHER 03-14-2013 WEHRMAN III D[place]SPNE[place] [address] OTHER ACUTE 02-01-2013 [facility] PAIN AMBULANCE SERVICE 51283 OTHER CHEST 02-01-2013 [facility] PAIN [facility] 9221 CONTUSION 02-01-2013 DONOVITZ OF CHEST JAM WALL 10996 HYPOCALCEMI 01-12-2013 [facility] EMERGENCY SERVICES 95871 PAP SMER 01-06-2013 [facility] CERV PETEY W/ATYPICAL SQUAMOUS CELLS UNDET V7231 ROUTINE 01-06-2013 [facility] GYNECOLOGIC PETEY AL EXAMINATION V7612 OTHER 01-06-2013 [facility] SCREENING REJI MAMMOGRAM 23419 OTHER 10-28-2012 [facility] ALTER[place] [address] ESOPHAGEAL 10-01-2012 IBRAHIMA AGARWAL REFLUX DWI 7295 PAIN IN 10-01-2012 [facility] SOFT AMBULANCE TISSUES OF SERVICE LIMB 64309 ABDOMINAL/P 09-28-2012 [facility] ELVIC [facility] SWELLING INC MASS/LUMP UNSPEC SITE 62403 OTHER 06-28-2012 WEHRMAN III MALAISE AND WHIT FATIGUE V850 BODY MASS 06-23-2012 BESSON CHARLES INDEX LESS THAN 19 ADULT 17196 OTHER 06-08-2012 [place] SPECIFIED MEDICAL DISORDERS IMAGING ASS OF BLADDER 5722 HEPATIC 05-17-2012 CHEEMA AREN ENCEPHALOPA THY 7823 EDEMA 05-16-2012 [facility] 6258 OTH SPEC 05-13-2012 JAY CHARLES SYMPTOM ASSOC W/FEMALE GENITAL ORGANS 80255 DEHYDRATION 04-09-2012 [facility] 5199 UNSPECIFIED 04-09-2012 [place] DISEASE OF MEDICAL IMAGING ASS RESPIRATORY SYSTEM 5283 CELLULITIS 04-01-2012 MCCATALINAMIE AND ABSCESS WHIT OF ORAL SOFT TISSUES 43727 REFLUX 04-01-2012 BROOKCATALINAMIE ESOPHAGITIS WHIT 5733 UNSPECIFIED 04-01-2012 BROOKCATALINAMIE JR HEPATITIS WHIT 2760 HYPEROSMOLA 02-12-2012 [facility] WHIT LITY AND/OR HYPERNATREM IA 5739 UNSPECIFIED 02-12-2012 [facility] WHIT DISORDER OF LIVER 02105 VOMITING 02-12-2012 [facility] P 28868 DIVERTICULO 01-30-2012 [place] SIS OF MEDICAL COLON IMAGING ASS 08317 PRECORDIAL 01-29-2012 [facility] PAIN AMBULANCE SERVICE 51534 ATROPHIC 01-28-2012 PATHOLOGY & GASTRITIS CYTOLOGY WITHOUT LAB MENTION OF HEMORRHAGE 59231 LOSS OF 12-22-2011 [facility] AGARWAL WEIGHT WHIT 83852 UNSPECIFIED 12-01-2011 [facility] EXOPHTHALMO HOSPI S 82359 MIOSIS , 12-01-2011 [facility] NOT DUE TO OF [place] MIOTICS HOSPI 74515 OTHER 12-01-2011 [facility] DISEASES OF [facility] NASAL HOSPI CAVITY AND SINUSES 436 ACUTE BUT 11-29-2011 [facility] ILL-DEFINED AMBULANCE SERVICE CEREBROVASC ULAR DISEASE 71005 ALTERED 11-29-2011 [facility] MENTAL AMBULANCE STATUS SERVICE 920 CONTUSION 11-20-2011 AMARJIT YANELY OF FACE SCALP AND NECK EXCEPT EYE 4289 UNSPECIFIED 11-18-2011 SRI LANKAN HEART MEDICAL FAILURE RESPONSE 07149 ENCEPHALOPA 11-17-2011 DHARMESH GRE THY, UNSPECIFIED 82673 UNSPECIFIED 11-15-2011 VILLARAN SHOCK YUR 515 POSTINFLAMM 11-06-2011 [facility] PULMONARY ASSOC FIBROSIS 58818 HEMATURIA 10-27-2011 [place] UNSPECIFIED [place] 54879 OTHER 10-27-2011 [facility] SPECIFIED DON DISORDERS OF URINARY TRACT 7969 OTHER 10-27-2011 [facility] NONSPECIFIC DON ABNORMAL FINDING 34475 ABDOMINAL 10-12-2011 [facility] PAIN, LEFT [facility] UPPER INC QUADRANT 2512 HYPOGLYCEMI 09-06-2011 WEHRMAN III A, WHIT UNSPECIFIED 76045 ABDOMINAL 09-06-2011 WEHRMAN III PAIN, WHIT EPIGASTRIC 92452 PAIN IN 07-10-2011 [place] JOINT, MEDICAL LOWER LEG IMAGING ASS 84579 CONTUSION 07-10-2011 [facility] OF [facility] 5959 UNSPECIFIED 07-06-2011 [place] CYSTITIS 0700 VIRAL 05-06-2011 [facility] HEPATITIS A DON WITH HEPATIC COMA 7948 NONSPECIFIC 05-06-2011 [facility] ABNORMAL DON RESULTS LIVR FUNCTION STUDY 84010 PAIN IN 04-03-2011 [place] JOINT MEDICAL PELVIC IMAGING ASS REGION AND THIGH 7906 OTHER 04-02-2011 [facility] ABNORMAL EMERGENCY BLOOD SERVICES CHEMISTRY 21847 FEVER 12-05-2010 [place] UNSPECIFIED [facility] P 4139 OTHER AND 12-04-2010 [facility] UNSPECIFIED PHYSICIANS [facility] GROUP P[place]IS 7336 TIETZES 12-03-2010 [place] 35115 PAINFUL 12-03-2010 [facility] RESPIRATION DON 7862 COUGH 09-22-2010 [facility] 48802 UNSPECIFIED 05-01-2010 [facility] PART OF EMERGENCY CLOSED SERVICES FRACTURE OF ASSOCIATES CLAVICLE 7891 HEPATOMEGAL 04-10-2010 AMIRA, Y DON R 4659 ACUTE URIS 01-16-2010 AMIRA OF DON R UNSPECIFIED SITE 4660 ACUTE 08-30-2008 SHETTY BRONCHITIS just.me 47607 SPRAIN AND 08-30-2008 SHETTY STRAIN OF [employer] UNSPECIFIED [employer] SITE OF FOOT 461 ACUTE 07-17-2008 [facility] SINUSITIS [facility] INC 5589 OTH&UNSPEC 06-21-2008 [facility] NONINFECTIO [facility] US INC GASTROENTER ITIS&COLITI S 0091 COLITIS 06-16-2008 AMIRA, ENTERIT&GAS DON R TROENTERIT INF ORIGIN 5929 UNSPECIFIED 06-16-2008 [facility] URINARY [facility] CALCULUS INC 599 OTHER 06-16-2008 [facility] DISORDERS [facility]OS[facility] OF URETHRA INC AND URINARY TRACT 7880 RENAL COLIC 06-16-2008 [facility] V85 BODY MASS 06-16-2008 [...] 50 1- 0- 00 06 TO ve ID 11 20 20 08 WN DE 70 [...] 17 17 34 E 6 81 PH WA AR OP MA CY 50 OF MC [...] 80 3- 6- 00 06 TO ve ID 21 20 20 08 WN DE 61 [...] 17 17 34 E 6 81 PH WA AR OP MA CY 50 OF MC [...] 50 4- 8- 00 06 TO ve ID 11 20 20 08 WN DE 71 [...] 17 17 34 E 6 81 PH WA AR OP MA CY 50 OF MC [...] 50 0- 7- 00 06 TO ve ID 11 20 20 08 WN DE 71 [...] 17 17 81 E 6 62 PH WA AR OP MA CY 50 OF MC [...] 17 17 81 E 6 62 PH WA AR OP MA CY 50 OF MC [...] 16 17 81 E 6 62 PH WA AR OP MA CY 50 OF MC [...] 50 2- 0- 00 06 TO ve ID 11 20 20 0 05 WN DE [...] 6- 6- 00 TO 40 ON ve ID 10 20 20 0 WN 7 DE [...] 8 PS # UL 03 E 93 WA 23 10 10 90 30 RI 90 [...] 8 # TA 03 BL 93 ET WA 37 10 10 28 28 RI 90 [...] 8 MG # 03 TA 93 B WA 45 09 09 20 5 RI 90 [...] 03 6. 3 RI 87 WE Ac WA 86 -1 -1 00 TE 43 HR [...] CY 03 93 8 # 03 93 WA 00 03 03 16 4 RI 87 [...] 3 [address] Ac WA 60 -0 -2 .0 TE 61 EP [...] 3 [address] Ac WA 60 -0 -2 .0 TE 61 EP [...] 03 E 93 8 # 03 93 WA 00 12 12 12 3 RI 86 [...] 20 20 AI 82 10 10 D ID 8 PH CH AR AE MA L [...] 80 4- 4- 00 91 HE ve WA 01 20 20 AI NS AM 10 [...] 02 [address] Ac WA 76 -1 -0 .0 TE 93 EP [...] 01 [address] Ac WA 76 -1 -0 .0 TE 93 EP [...] 00 [address] Ac WA 76 -1 -2 .0 TE 93 EP [...] 77 20 20 DE 20 09 09 ID 5 PH CH AR AE MA L [...] 93 MG 8 CA PS UL E WA 00 04 04 00 16 3 EA [...] 3- 8- 00 SI 78 E ve WA 02 20 20 DE RO ED 20 [...] 00 [address] Ac WA 76 -2 -0 .0 TE 05 EP [...] 7 MYRIAM RA 56 08 08 IS ID 5 PH R NE AR MA PA [...] DE ai ZA 80 08 08 la WA 1 PH bl IN AR e E MA 10 CY MG OF CY TA NT BL HI ET AN A NA 00 09 09 00 10 5 EA 99 No Ac WA 09 -0 -[address] 36 t [...] NT 10 HI 0 AN MG A WA 00 07 07 00 15 2 EA 98 No Ac OM 78 -0 -[address] 58 t ti ET 11 2- 7- 00 SI 59 Av ve LOPEZ 83 20 20 DE ai ZI 01 08 08 la NE 0 PH bl AR e 25 MA CY MG OF TA CY BL NT ET HI AN A WA 00 08 07 01 12 2 RI [...] PH T AR MA CY #5 91 WA 00 08 06 00 12 2 RI [...] 00 90 30 WA 44 No Ac WA 37 -1 -1 .0 L- 66 t ti AZ 84 1- 7- 00 MA 83 Av ve OL 00 20 20 RT 4 ai AM 30 08 08 la 5 PH bl 0. AR e 5 MA MG CY TA #5 BL 91 ET WA 00 03 04 00 12 6 WA [...] EQUIP[place] [address] [facility] MEREDITH MAGNESIUM 7 [facility] INC INC COLLECTIO 35462 [facility] MEREDITH N VENOUS 7 [facility] BLOOD INC INC VENIPUNCT URE COMPREHEN 67040 [facility] MEREDITH SIVE 7 [facility] METABOLIC INC INC PANEL O2 CONC [...] [place] [address] [place] MUNOZ ALL ABDOMEN & 6 MEDICAL PELVIS IMAGING W/CONTRAS ASS T MATERIAL O2 CONC 1 E1390 LIZETH STANLEY DEL PORT 6 HOME HOME 85%/>02 MEDICAL MEDICAL CONC AT EQUIPME EQUIPME PRSC FLW RATE UNCLASSIF J3490 [facility] MEREDITH IED DRUGS 6 [facility] INC INC ANES 81894 LISA W[place]ATT UPPER GI 6 ANESTH DEBBIE ENDOSCOPY OF THE PROXIMAL BLUE TO DUODENUM ESOPHAGOG 79393 MASOUDYOMI RIVERAON ASTRODUOD 6 [facility] ENOSCOPY INC INC TRANSORAL DIAGNOSTI C O2 CONC 1 E1390 LIZETH STANLEY DEL [place] 6 HOME HOME 85%/>02 MEDICAL MEDICAL CONC AT [facility]GA [facility] FLW RATE UNCLASSIF J3490 [facility] MER[facility] IED DRUGS 6 [facility] INC INC CULTURE 20646 [facility] BACTERIAL 6 [facility] INC INC QUANTTATI VE COLONY COUNT URINE CULTURE 94121 [facility] BCT 6 [facility] ISOL&PRSM INC INC PTV ID ISOLATE EA URINE SUSCEPTIB 80114 [facility] MERED[facility] LTY STDY 6 [facility] ANTIMICRB INC INC IAL MICRO/[place] [address] MASOU[facility] MEREDITH AMYLASE 6 [facility] INC INC THER 55099 [facility] MERED[facility] PROPH/DX 6 [facility] NJX IV INC INC PUSH SINGLE/1S T SBST/DRUG BLOOD 32904 [facility] MEREDITH COUNT 6 [facility] COMPLETE INC INC AUTO&AUTO DIFRNTL WBC DRUG TST G0477 [facility] MEREDITH PRESUMP;C 6 [facility] PBL [place]ING [place] [address] MASOU[facility] MEREDITH ABDOMEN & 6 [facility] PELVIS [place] W/[place] [address] [facility] MERED[facility] LIPASE 6 [facility] INC INC COMPREHEN 68562 MAS[facility] MEREDITH SIVE 6 [facility] METABOLIC INC INC PANEL O2 CONC 1 E1390 LIZETH STANELY [place] 6 HOME HOME 85%/>02 MEDICAL MEDICAL CONC AT EQUIPME [facility] FLW RATE NONEMERG A0120 FEDERATED FEDERATED TRNSPRT: 6 MINI-BUS TRANSPORT TRANSPORT MTN ATION SER ATION SER AREA/OTH SYS ROTARY A0436 AIR AIR WING AIR 6 METHODS METHODS MILEAGE [facility] PER STATUTE MILE AMB A0431 AIR AIR SERVICE 6 METHODS METHODS CONVNTION [facility] AIR SRVC TRANSPORT [address] RADIOLOGI [address] [place] A[place]ER LARA C 6 MEDICAL EXAMINATI IMAGING ON CHEST ASS SINGLE VIEW FRONTAL RADIOLOGI 89940 [place] CLARISSE C 6 MEDICAL NICOLE EXAMINATI SERV ON TIBIA FOUNDATIO & FIBULA N 2 VIEWS RADIOLOGI [address]64 [facility] ALL C 6 MEDICAL EXAMINATI IMAGING ON PELVIS ASS 1/[address] [place] [address] ALEISHA SHERYL KWA ANGIOGRAP 6 MEDICAL HY HEAD SERV W/CONTRAS FOUNDATIO T/[place] [address] ALEISHA SAUCEDO KWA ANGIOGRAP 6 MEDICAL HY NECK SERV W/CONTRAS FOUNDATIO T/NONCONT N RAST O2 CONC 1 E1390 LIZETH STANLEY [place] 6 HOME HOME 85%/>02 MEDICAL MEDICAL CONC AT EQUIPME EQUIPME [facility] FLW RATE OBSERVATI 50094 [place] ON CARE 6 [facility] DISCHARGE INTERNAL MED MANAGEMEN T GROUND A0425 [facility] MILEAGE 6 AMBULANCE AMBULANCE PER SERVICE SERVICE STATUTE [facility] A0427 [facility] SERVICE 6 AMBULANCE AMBULANCE ALS SERVICE SERVICE EMERGENCY TRANSPORT LEVEL 1 INITIAL 63324 [place] OBSERVATI 6 [place] CHAR[place] ON INTERNAL CARE/DAY [place] [address] [place] [address] [place] ARIAN ABDOMEN & 6 MEDICAL [place] PELVIS IMAGING W/O ASS CONTRAST MATERIAL O2 CONC 1 E1390 LIZETH ROGERSRELL DEL [place] 6 HOME HOME 85%/>02 MEDICAL MEDICAL CONC AT EQUIPME EQUIPME [facility] FLW RATE O2 CONC 1 E1390 LIZETH STANLEY [place] 6 HOME HOME 85%/>02 MEDICAL MEDICAL CONC [facility] E[facility] ALL C EXAM 6 MEDICAL CHEST 2 IMAGING VIEWS ASS FRONTAL&L ATERAL O2 CONC 1 E1390 LIZETH STANLEY [place] 6 HOME HOME 85%/>02 MEDICAL MEDICAL CONC AT EQUIPME EQUIPME PRSC FLW RATE O2 CONC 1 E1390 LIZETH STANLEY [place] 6 HOME HOME 85%/>02 MEDICAL MEDICAL CONC AT EQUIPME EQUIPME [facility] FLW RATE O2 CONC 1 E1390 LIZETH STANLEY [place] 6 [place] HOME 85%/>02 MEDICAL MEDICAL CONC AT E[facility] O[facility] CONC 1 E1390 LIZETH STANLEY [place] 5 [place] HOME 85%/>[address] [facility] FLW RATE O2 CONC 1 E1390 LIZETH LIZETH [place] 5 HOME HOME 85%/>[facility] C[facility] 42825 COMBINED COMBINED BACTERIAL 5 PHYSICIAN PHYSICIAN S LA S LA QUANTTATI VE COLONY COUNT URINE CULTURE 79943 COMBINED COMBINED BCT 5 PHYSICIAN PHYSICIAN ISOL&PRSM S LA S LA PTV ID ISOLATE EA URINE SUSCEPTIB 60106 COMBINED COMBINED ILITY 5 PHYSICIAN PHYSICIAN STUDY S LA S LA ANTIMICRO BIAL DISK METHOD URNLS DIP 98230 [place] [facility] STICK/TAB INTERNAL LET RGNT MED NON-AUTO W/O MICRSCP RADIOLOGI 19398 [place] C EXAM 5 MEDICAL LAUREN CHEST 2 IMAGING VIEWS ASS FRONTAL&L ATERAL RADEX 17253 [place] FACIAL 5 MEDICAL LAUREN BONES IMAGING COMPLETE ASS MINIMUM 3 VIEWS O2 CONC 1 E1390 LIZETH STANLEY [facility] PORT 5 HOME HOME 85%/>[address] [facility] FLW RATE OBSERVATI 85830 [place] [facility] ON CARE 5 [facility] DISCHARGE INTERNAL MED MANAGEMEN T INITIAL 14769 [place] OBSERVATI 5 [facility] ON INTERNAL CARE/DAY [place] [address] [place] [address] [place] ANGIOGRAP 5 MEDICAL LAUREN HY CHEST IMAGING W/CONTRAS ASS T/NONCONT RAST ECG 58490 MASOUD BESSON ROUTINE 5 [facility] W/LEAST P 12 LDS I&R ONLY RADIOLOGI 34095 [place] C 5 MEDICAL LAUREN EXAMINATI IMAGING ON CHEST ASS SINGLE VIEW FRONTAL RADIOLOGI 89820 [place] MUNOZ ALL C EXAM 5 MEDICAL CHEST 2 IMAGING VIEWS ASS FRONTAL&L ATERAL O2 CONC 1 E1390 LIZETH STANLEY [place] 5 HOME HOME 85%/>02 [facility] CONC 1 E1390 [...] EQUIPME EQUIPME PRS FLW RATE AMB A0427 [facility] SERVICE 5 AMBULANCE AMBULANCE ALS SERVICE SERVICE EMERGENCY TRANSPORT LEVEL 1 GROUND A0425 [facility] MILEAGE 5 AMBULANCE AMBULANCE PER SERVICE SERVICE STATUTE MILE GROUND A0425 [facility] MILEAGE 5 AMBULANCE AMBULANCE PER SERVICE SERVICE STATUTE MILE AMB A0427 [facility] SERVICE 5 AMBULANCE AMBULANCE ALS SERVICE SERVICE EMERGENCY TRANSPORT LEVEL 1 [place] [address] [facility] SURG 5 [facility] PATHOLOGY GROSS&GUSTAVO ROSCOPIC EXAM ECHO 59056 ALEISHA STANLEY TTHRC R-T 5 MEDICAL ANTHONY 2D SERV W/WOM-MOD FOUNDATIO E COMPL N SPEC&COLR D US PELVIC 15372 BEATRIZ MCKEONCHER 5 MEDICAL LAUREN NONOBSTET IMAGING GIANCARLO ASS REAL-TIME IMAGE COMPLETE O2 CONC 1 E1390 LIZETH TOSCANO [place] 5 HOME HOME 85%/>02 MEDICAL MEDICAL CONC AT EQUIPME EQUIPME [facility] FLW RATE O2 CONC 1 E1390 LIZETH TOSCANO [place] 5 HOME HOME 85%/>02 MEDICAL MEDICAL CONC AT EQUIPME EQUIPME [facility] FLW RATE O2 CONC 1 E1390 LIZETH TOSCANO [place] 5 HOME HOME 85%/>02 MEDICAL MEDICAL CONC [place] [address] BEATRIZ MCKEONCHER HEAD/BRAI 4 MEDICAL LAUREN N W/[place] [address] BEATRIZ ASHUTCHER CERVICAL 4 MEDICAL LAUREN SPINE W/[place] [address] BEATRIZ SLADE MAXILLOFA 4 MEDICAL LAUREN CIAL W/O IMAGING CONTRAST ASS MATERIAL ESOPHAGOG 37817 ALEISHA MIGUELI ASTRODUOD 4 MEDICAL ENOSCOPY SERV TRANSORAL FOUNDATIO N DIAGNOSTI C ANES 35781 [facility] DELEON CHARU UPPER GI 4 ANESTH [...] AT EQUIPME EQUIPME PRSC FLW RATE HEPATITIS 97737 MASOUD MEREDITH C 4 [facility] ANTIBODY INC INC HEPATITIS 97896 MASOUD MEREDITH A 4 [facility] ANTIBODY INC INC HAAB COMPREHEN 30880 MASOUD MEREDITH SIVE 4 [facility] METABOLIC INC INC PANEL HEPATITIS 74577 MASOUD MEREDITH B CORE 4 [facility] ANTIBODY INC INC HBCAB TOTAL HEPATITIS 07498 MASOUD MEREDITH B SURF 4 [facility] [address] MASOUD MEREDITH HEPATITIS 4 [facility] B INC INC SURFACE ANTIGEN O2 CONC 1 E1390 LIZETH STANLEY [place] 4 HOME HOME 85%/>02 MEDICAL MEDICAL CONC AT EQUIPME EQUIPME PRSC FLW RATE O2 CONC 1 E1390 LIZETH STANLEY [place] 4 HOME HOME 85%/>02 MEDICAL MEDICAL CONC AT EQUIPME EQUIPME PRSC FLW RATE RADEX ABD 53987 [facility] SLADE COMPL 4 LAUREN LAUREN AQT ABD W/S/E/D VIEWS 1 VIEW CH RADEX ABD 92465 [facility] COMPL 4 LAUREN LAUREN AQT ABD W/S/E/D VIEWS [address] THORAX 62194 [facility] W/O [address] [place] [address] [facility] ABDOMEN & 4 LAUREN LAUREN PELVIS W/CONTRAS T MATERIAL O2 CONC 1 E1390 LIZETH STANLEY [place] 4 HOME HOME 85%/>02 MEDICAL MEDICAL CONC AT EQUIPME EQUIPME [facility] FLW RATE AMB A0427 [facility] SERVICE 4 AMBULANCE AMBULANCE ALS SERVICE SERVICE EMERGENCY TRANSPORT LEVEL 1 GROUND A0425 [facility] MILEAGE 4 AMBULANCE AMBULANCE [place] [address] [facility] HEAD/BRAI 4 LAUREN LAUREN N W/O CONTRAST MATERIAL RADIOLOGI 42192 [facility] C 4 LAUREN LAUREN EXAMINATI ON CHEST SINGLE VIEW FRONTAL CULTURE 69699 COMBINED COMBINED BACTERIAL 4 PHYSICIAN PHYSICIAN S LA [place] [address] [facility] ABDOMINAL 4 LAUREN LAUREN REAL TIME W/IMAGE DOCUMENTA DANIEL KEM E0143 LIZETH STANLEY FOLDING 4 HOME HOME WHEELED MEDICAL MEDICAL ADJUSTABL EQUIPME EQUIPME E/FIXED HEIGHT COMMODE E0163 LIZETH STANLEY CHAIR 4 HOME HOME MOBILE OR MEDICAL MEDICAL EQUIPME EQUIPME STATIONAR Y [place] [address] [facility] 1/> AREAS [address] EA [facility] MIN GAIT TRAINJ W/STAIR SELF-CARE 98847 [facility] /HOME [address] MGMT [facility] TRAINING EACH 15 MINUTES THERAPEUT 62759 [facility] ACTVITY [address] DIRECT PT [facility] CONTACT EACH 15 MIN THERAPEUT 24840 [facility] ACTVITY [address] DIRECT PT [facility] CONTACT EACH 15 MIN THERAPEUT 45122 [facility] IC PX 1/> [address] AREAS [facility] EACH 15 MIN EXERCISES THERAPEUT 59639 [facility] 1/> [address] [facility] EACH 15 MIN EXERCISES THERAPEUT 99391 [facility] ACTVITY [address] DIRECT PT [facility] CONTACT EACH 15 MIN THERAPEUT 42002 [facility] ACTVITY [address] DIRECT PT [facility] CONTACT EACH 15 MIN BASIC 27917 [facility] METABOLIC [address] PANEL [facility] CALCIUM TOTAL COLLECTIO 92272 [facility] N VENOUS [address] BLOOD [facility] VENIPUNCT URE THERAPEUT 98175 [facility] [place] [facility] 1/> [address] [facility] [place] [address] [facility] 1/> AREAS [address] EA [facility] MIN GAIT TRAINJ W/STAIR THERAPEUT 37767 [facility] ACTVITY [address] DIRECT PT [facility] CONTACT EACH 15 MIN O2 CONC 1 E1390 [facility] DEL PORT [address] 85%/>02 [facility] CONC AT PRSC FLW RATE O2 CONC 1 E1390 [place] SH[facility] [place] [address] 85%/>02 [facility] CONC AT PRSC FLW RATE THERAPEUT 26089 [facility] ACTVITY [address] DIRECT [facility] CONTACT EACH 15 MIN THERAPEUT 28531 [facility] ACTVITY [address] DIRECT PT [facility] CONTACT EACH 15 MIN THERAPEUT 68056 [facility] ACTVITY [address] DIRECT PT [facility] CONTACT EACH 15 MIN THERAPEUT 72647 [facility] IC PX 1/> [address] AREAS [facility] EACH 15 MIN EXERCISES BLOOD 02405 [facility] [place] COUNT [address] COMPLETE [facility] AUTO&[place] [address] [facility] [place] [facility] THYROID [address] STIMULATI [facility] NG HORMONE TSH COLLECTIO 48602 [facility] N VENOUS [address] BLOOD [facility] VENIPUNCT URE COMPREHEN 90838 [facility] SIVE [address] METABOLIC [facility] PANEL THERAPEUT 72129 [facility] ACTVITY [address] DIRECT PT [facility] CONTACT EACH 15 MIN THERAPEUT 26158 [facility] ACTVITY [address] DIRECT PT [facility] CONTACT EACH 15 MIN THERAPEUT 99888 [facility] ACTVITY [address] DIRECT PT [facility] CONTACT EACH 15 MIN THERAPEUT 81892 [facility] IC PX 1/> [address] AREAS [facility] EACH 15 MIN EXERCISES PHYSICAL 16167 [facility] THERAPY [address] EVALUATIO [facility] N THERAPEUT 14535 [facility] ACTVITY [address] DIRECT PT [facility] CONTACT EACH 15 MIN WHEELCHAI 71327 [facility] R MGMT EA [address] 15 MIN [facility] OCCUPATIO 46611 [facility] NAL [address] THERAPY [facility] EVALUATIO N RADEX 48385 SYMPHONY SYMPHONY ABDOMEN 1 4 MOBILEX MOBILEX ANTEROPOS TERIOR VIEW INITIAL 00689 [facility] 4 [facility]TENDED [facility] CARE CARE/DAY SERV 35 MINUTES AMB A0422 SRI LANKAN SRI [facility]ANKAN OXYGEN&O2 4 MEDICAL MEDICAL SUPPLIES RESPONSE RESPONSE LIFE SUSTAININ G SITUATION GROUND A0425 SRI [facility]ANK[facility]ANK[facility] MILEAGE 4 MEDICAL MEDICAL PER RESPONSE RESPONSE STATUTE MILE SBSQ 33992 [facility] 4 CARE/DAY 25 MINUTES ABDOM 91720 PETER ARGUELLESLER PARACENTE 4 CAR CAR SIS DX/THER W/IMAGING GUIDANCE SBSQ 72336 [facility] 3 CARE/DAY 25 MINUTES SBSQ 31751 [facility] 3 CARE/DAY 25 MINUTES ABDOM 11492 [facility] PAR[facility]ENT[facility] 3 LD IV A LD IV A SIS DX/THER W/IMAGING GUIDANCE RADEX 17275 TAYLOR SHAWANDA TAYLOR SHAWANDA ABDOMEN 1 3 ANTEROPOS TERIOR VIEW RADIOLOGI 73589 DISANTIS DISANTIS C 3 CALVIN CALVIN EXAMINATI ON CHEST SINGLE VIEW FRONTAL SBSQ 80457 MAKI [facility] 3 III WHIT III WHIT CARE/DAY 25 MINUTES SBSQ 02952 [facility] 3 III WHIT III WHIT CARE/DAY 25 MINUTES SBSQ 14445 [facility] 3 DAVE ACOSTA CARE/DAY 35 MINUTES ABDOM 73765 PELLEGRIN PELLEGRIN PARACENTE 3 I GIANCARLO I GIANCARLO SIS DX/THER W/IMAGING GUIDANCE ABDOM 08446 PELLEGRIN PELLEGRIN PARACENTE 3 I GIANCARLO I GIANCARLO SIS DX/THER W/IMAGING GUIDANCE INTRODUCT 24498 PELLEGRIN PELLEGRIN ION LONG 3 I GIANCARLO I GIANCARLO GI TUBE SEPARATE PROCEDURE INTRO 26253 PELLEGRIN PELLEGRIN LONG GI 3 I GIANCARLO I GIANCARLO TUBE W/MULT FLUORO & IMAGES RS&[place] [address] TAYLOR SHAWANDA TAYLOR SHAWANDA ABDOMEN & 3 PELVIS W/O CONTRAST MATERIAL RADIOLOGI 24158 SHANIKA SHANIKA C 3 JETT JETT EXAMINATI ON CHEST SINGLE VIEW FRONTAL ABDOM 36308 PELLEGRIN PELLEGRIN PARACENTE 3 I GIANCARLO I GIANCARLO SIS DX/THER W/IMAGING GUIDANCE RADEX 04955 DISANTIS DISANTIS ABDOMEN 1 3 CALVIN CALVIN ANTEROPOS TERIOR VIEW ESOPHAGOG 20460 [facility]OM[facility] THOMAS ASTRODUOD [address] ENOSCOPY TRANSORAL DIAGNOSTI C COLONOSCO 85548 THOMAS THOMAS PY [address] W/BIOPSY SINGLE/[place] [address] GUILLERMO GUILLERMO SURG 3 DARRYL DARRYL PATHOLOGY GROSS&GUSTAVO ROSCOPIC EXAM RADIOLOGI 84859 FIORDALIZA FIORDALIZA C 3 GABRIELA GABRIELA EXAMINATI ON CHEST SINGLE VIEW FRONTAL ABDOM 84256 PELLEGRIN PELLEGRIN PARACENTE 3 I GIANCARLO I GIANCARLO SIS DX/THER W/IMAGING GUIDANCE RADEX ABD 10009 DENISSE SALCEDO COMPL 3 SCO SCO AQT ABD W/S/E/D VIEWS 1 VIEW CH ABDOM 75185 PELLEGRIN PELLEGRIN PARACENTE 3 I GIANCARLO I GIANCARLO SIS DX/[place] [address] FRANK FRANK ABDOMEN & 3 FRA FRA PELVIS W/O CONTRAST MATERIAL RADEX 38304 DISANTIS DISANTIS ABDOMEN 1 3 CALVIN CALVIN ANTEROPOS TERIOR VIEW RADEX 91282 FIORDALIZA FIORDALIZA ABDOMEN 3 GABRIELA GABRIELA COMPL W/DCBTS&/ ERC VIEWS ABDOM 73880 PELLEGRIN PELLEGRIN PARACENTE 3 I GIANCARLO I GIANCARLO SIS DX/THER W/IMAGING GUIDANCE RADEX 75486 JEREMIAS JEREMIAS ABDOMEN 1 3 ART ART ANTEROPOS TERIOR VIEW RADEX 24617 JEREMIAS JEREMIAS ABDOMEN 1 3 [place] [address] BHARATI CALABRESE SURG 3 JERICHO ECHAVARRIA PATHOLOGY GROSS&GUSTAVO ROSCOPIC EXAM CYTP 49913 BHARATI CALABRESE SLCTV 3 JERICHO ECHAVARRIA CELL ENHANCEME NT INTERPJ XCPT C/V ABDOM 01091 PELLEGRIN PELLEGRIN PARACENTE 3 I GIANCARLO I GIANCARLO SIS DX/THER W/IMAGING GUIDANCE CYTP 94652 ARTURO MORRIS CONCENTRA 3 NICA NICA TION SMEARS & [place] [address] SHANIKA SHANIKA ABDOMINAL 3 JETT JETT REAL TIME W/IMAGE LIMITED RADEX 08614 DISANTIS DISANTIS ABDOMEN 3 CALVIN CALVIN COMPL W/DCBTS&/ ERC VIEWS RADEX 11040 SZABUNIO SZABUNIO ABDOMEN 1 3 MAR MAR ANTEROPOS TERIOR VIEW RADEX 26983 SALCEDO SALCEDO ABDOMEN 1 3 SCO SCO ANTEROPOS TERIOR VIEW RADEX ABD 55207 LUCY STAFFORDER COMPL 3 GUSTAVO GUSTAVO AQT ABD W/S/E/D VIEWS 1 VIEW CH RADIOLOGI 59587 LUCY BARNESKLER C 3 GUSTAVO GUSTAVO EXAMINATI ON CHEST SINGLE VIEW FRONTAL BLOOD 35572 WEST CALVIN WEST CALVIN SMEAR 3 PERIPHERA L INTERP PHYS W/WRIT REPORT RADIOLOGI 27675 LUCY LUCY C 3 GUSTAVO GUSTAVO EXAMINATI ON CHEST SINGLE VIEW FRONTAL RADEX 75804 SALCEDO SALCEDO ABDOMEN 1 3 SCO SCO ANTEROPOS TERIOR VIEW ECG 22570 RAKESH MELVIN RAKESH MELVIN ROUTINE 3 ECG W/LEAST 12 LDS I&R ONLY RADIOLOGI 82561 SHANIKA SHANIKA C 3 JETT JETT EXAMINATI ON CHEST SINGLE VIEW FRONTAL RADIOLOGI 94267 LUCY LUCY C 3 GUSTAVO GUSTAVO EXAMINATI ON CHEST SINGLE VIEW FRONTAL RADIOLOGI 13029 LUCY BARNESKLER C 3 GUSTAVO GUSTAVO EXAMINATI ON CHEST SINGLE VIEW FRONTAL RADEX 70482 TAYLOR SHAWANDA TAYLOR SHAWANDA ABDOMEN 1 3 ANTEROPOS TERIOR VIEW SBSQ 66409 [facility] 3 MEDICAL CALVIN CARE/DAY SERV 25 FOUNDATIO MINUTES N CRITICAL 14147 [place] LEÓN KET CARE 3 MEDICAL ILL/INJUR SERV ED FOUNDATIO PATIENT N INIT 30-74 MIN LOCALIZE 08815 [facility]- CEREBRAL 3 SIENNA BINA SIENNA BINA SEIZURE CABLE/RAD IO EEG/VIDEO INSJ 83309 LEÓN KET LEÓN KET NON-TUNNE 3 LED CENTRAL VENOUS CATH AGE 4 YR/> RADIOLOGI 41140 DISANTIS DISANTIS C 3 CALVIN CALVIN EXAMINAT[place] [address] SHERYL KWA SHERYL KWA HEAD/BRAI 3 N [place] [address] FRANK FRANK ABDOMINAL 3 FRA FRA REAL TIME W/IMAGE LIMITED DUP-SCAN 98845 FRANK FRANK ARTL GA 3 FRA FRA ABDL/PEL/ SCROT&/RP R ORGN COM CRITICAL 61880 LEÓN KET LEÓN KET CARE 3 ILL/INJUR ED PATIENT INIT 30-74 MIN ANES 81091 MOY RINCON COMPLICJ 3 EMERGENCY CONDITION S SPECIFY RADIOLOGI 70094 DISANTIS DISANTIS C 3 CALVIN CALVIN EXAMINATI ON CHEST SINGLE VIEW FRONTAL ANES 24004 MOY RINCON UPPER GI 3 ENDOSCOPY PROXIMAL TO DUODENUM EGD 78297 CO DEE TRANSORAL 3 MEDICAL GABRIELA BIOPSY SERV SINGLE/MU FOUNDATIO LTIPLE N SPECIAL 66859 BHARATI CALABRESE STAIN 3 JERICHO JERICHO GROUP 1 MICROOR[place] NISMS I&[place] [address] BHARATI CALABRESE SURG 3 JERICHO ECHAVARRIA PATHOLOGY GROSS&GUSTAVO ROSCOPIC EXAM IMHISTOCH 63730 BHARATI CALABRESE EM/CYTCHM 3 JERICHO ECHAVARRIA 1ST ANTIBODY STAIN PROCEDURE ECHO 99511 [facility]UPERT EMERY, [facility] 3 JR. NERI AGARWAL. NERI 2D W/WOM-MOD E COMPL SPEC&COLR D RADIOLOGI 72050 ALEXIA HALE C 3 GUSTAVO GUSTAVO EXAMINATI ON CHEST SINGLE VIEW FRONTAL RADIOLOGI 46955 MERHAR MERHAR C 3 GAR GAR EXAMINATI ON CHEST SINGLE VIEW FRONTAL THERAPEUT 92846 MASOUD MEREDITH IC 3 [facility] INJECTION [place] [address] MASOUD MEREDITH INFUSION 3 [facility] THERAPY/P INC INC ROPHYLAXI S /DX 1ST TO 1 HR CULTURE 23010 MASOUD MEREDITH BACTERIAL 3 [facility] BLOOD INC INC AEROBIC W/ID ISOLATES CULTURE 86872 MASOUD MEREDITH BACTERIAL 3 [facility] INC [place] [address] MASOUD MEREDITH INFUSION 3 [facility] THERAPY INC INC PROPHYLAX IS/DX EA HOUR URNLS DIP 68673 MASOUD MEREDITH 3 [facility] STICK/TAB INC INC LET REAGENT AUTO MICROSCOP Y CRITICAL 79257 MASOUD MEREDITH CARE 3 [facility] ILL/INJUR INC INC ED PATIENT INIT 30-74 MIN GROUND A0425 [facility]BULANCE PER SERVICE SERVICE STATUTE MILE AMBULANCE A0429 [facility] SERVICE 3 AMBULANCE AMBULANCE BLS SERVICE SERVICE EMERGENCY TRANSPORT RHYTHM 80214 MASOUD MEREDITH ECG 1-3 3 [facility] LEADS INC INC TRACING ONLY W/O I&R ECG 67390 IBRAHIMA ALEXANDRA JR ROUTINE 3 DWI DWI ECG W/LEAST 12 LDS I&R ONLY COMPREHEN 27959 MASOUD MEREDITH SIVE 3 [facility] METABOLIC INC INC PANEL INJECTION J2405 MASOUD MEREDITH 3 [facility] ONDANSETR INC INC ON HCL PER 1 [place] [address] MASOUD MEREDITH INFUSION 3 [facility] THER INC INC PROPH ADDL SEQUENTIA L TO 1 HR PROTHROMB 62051 MASOUD MEREDITH IN TIME 3 [facility] INC INC BLOOD 34924 MASOUD MEREDITH COUNT 3 [facility] COMPLETE INC INC AUTO&[place] [address] MASOUD MASOUD LIPASE 3 [facility] [place] [address] MASOUD MEREDITH AMYLASE 3 [facility] INC INC ECG 89274 MASOUD MEREDITH ROUTINE 3 [facility] ECG INC INC W/LEAST 12 LDS TRCG ONLY W/O I&R GROUND A0425 [facility] MILEAGE 3 AMBULANCE AMBULANCE PER SERVICE SERVICE STATUTE MILE AMBULANCE A0428 [facility] SERVICE 3 AMBULANCE AMBULANCE BLS SERVICE SERVICE NONEMERGE NCY TRANSPORT RADIOLOGI 61717 [facility] SLADE C 3 LAUREN LAUREN EXAMINAT[place] [address] SLADE SLADE HEAD/BRAI 3 LAUREN LAUREN N W/O CONTRAST MATERIAL URNLS DIP 01464 COMBINED COMBINED 3 PHYSICIAN PHYSICIAN STICK/TAB S LA S LA LET REAGENT AUTO MICROSCOP Y HOSPITAL 38514 [facility] DISCHAR[facility] [address] [facility] DAY MANAGEMEN T 30 MIN/< SBSQ 38506 [facility] [address] [facility] CARE/DAY 25 MINUTES 3D 83226 SL[facility] SLADE RENDERING 3 LAUREN LAUREN W/INTERP& POSTPROC DIFF WORK STATION INITIAL 87649 [facility] [address] [facility] CARE/DAY [address] [place] [address] SLADE SLADE ABDOMEN & 3 LAUREN LAUR[place] [address] SL[facility] SLADE ABDOMINAL 3 LAUREN LAUREN REAL TIME W/IMAGE DOCUMENTA TION CT THORAX 96020 SLADE SLADE W/O 3 LAUREN LAUREN CONTRAST MATERIAL ECG 99410 RADESVIN ELI ROUTINE 3 III WHIT III WHIT ECG W/LEAST 12 LDS I&R ONLY RADIOLOGI 97998 [facility] SLADE C 3 LAUREN LAUREN EXAMINATI ON CHEST SINGLE VIEW FRONTAL RADEX 64498 [facility]ADE SLADE RIBS 3 LAUREN LAUREN UNILATERA L 2 VIEWS RADEX 89190 MASOUD MEREDITH RIBS UNI 3 [facility] W/POSTERO INC INC ANT CH MINIMUM 3 VIEWS AMBULANCE A0429 [facility] SERVICE 3 AMBULANCE AMBULANCE BLS SERVICE SERVICE EMERGENCY TRANSPORT GROUND A0425 [facility] MILEAGE 3 AMBULANCE AMBULANCE PER SERVICE SERVICE STATUTE MILE GROUND A0425 [facility] MILEAGE 3 AMBULANCE AMBULANCE PER SERVICE SERVICE STATUTE MILE AMB A0427 [facility] SERVICE 3 AMBULANCE AMBULANCE ALS SERVICE SERVICE EMERGENCY TRANSPORT LEVEL 1 ECG 84899 ROGER FIELDS ROUTINE 3 EMERGENCY WHIT ECG SERVICES W/LEAST 12 LDS I&R ONLY URNLS DIP 31429 [facility] 3 REJI REJI STICK/TAB LET RGNT NON-AUTO W/O MICRSCP IADNA 08908 ROGER DURAN PAPILLOMA 3 PETEY PETEY VIRUS HUMAN AMPLIFIED PROBE TQ CYTP 69412 ROGER ROGER CERVICAL/ 3 PETEY PETEY VAGINAL REQ INTERP PHYSICIAN CYTP C/V 80544 ROGER DURAN AUTO THIN 3 PETEY PETEY LYR PREPJ SCR MNL RESCR PHYS URNLS DIP 05490 COMBINED COMBINED 3 PHYSICIAN PHYSICIAN STICK/TAB S LA S LA LET REAGENT AUTO MICROSCOP Y COMPREHEN 75348 COMBINED COMBINED SIVE 3 PHYSICIAN PHYSICIAN [place] [address] COMBINED COMBINED MAGNESIUM 3 [place] [address] COMBINED COMBINED MAGNESIUM 3 [place] [address] MASOUD MEREDITH MAGNESIUM 3 [place] [address] MASOUD MEREDITH PHOSPHORU 3 [facility] S INC INC INORGANIC ECG 13806 MASOUD MEREDITH ROUTINE 3 [facility] ECG INC INC W/LEAST 12 LDS TRCG ONLY W/O I&R BLOOD 42679 MAS[facility] MEREDITH COUNT 3 [facility] COMPLETE INC INC AUTO&AUTO DIFRNTL WBC COMPREHEN 04582 MAS[facility] MEREDITH SIVE 3 [facility] METABOLIC INC INC PANEL ECG 36232 IBRAHIMA ALEXANDRA JR ROUTINE 3 DWI DWI ECG W/LEAST 12 LDS I&R ONLY RADIOLOGI 40774 [facility] SLADE C 3 LAUREN LAUREN EXAMINATI ON CHEST SINGLE VIEW FRONTAL THERAPEUT 59846 MASOUD MASOUD IC 3 [facility] INJECTION [place] [address] MASOUD MEREDITH INFUSION 3 [facility] THERAPY/P INC INC ROPHYLAXI S /DX 1ST TO 1 HR AMB A0427 [facility] SERVICE 3 AMBULANCE AMBULANCE ALS SERVICE SERVICE EMERGENCY TRANSPORT LEVEL 1 GROUND A0425 [facility] MILEA 3 AMBULANCE AMBULANCE PER SERVICE SERVICE STATUTE [facility] D[facility] 39545 COMBINED COMBINED 2 PHYSICIAN PHYSICIAN STICK/TAB S LA S LA LET REAGENT AUTO MICROSCOP Y GROUND A0425 [facility] MILEA 2 AMBULANCE AMBULANCE PER SERVICE SERVICE STATUTE MILE AMBULANCE A0429 [facility] SERVICE 2 AMBULANCE AMBULANCE BLS SERVICE SERVICE EMERGENCY TRANSPORT RADIOLOGI 92918 [facility] SLADE C 2 LAUREN LAUREN [place]AMIN[place] [address] [facility] HEAD/BRAI 2 LAUREN LAUREN N W/[place] [address] [facility] CERVICAL 2 LAUREN LAUREN SPINE W/O CONTRAST MATERIAL RADIOLOGI 23733 [facility] 2 MEDICAL LAUREN EXAMINATI IMAGING ON CHEST ASS SINGLE VIEW FRONTAL RADIOLOGI 64185 [facility] 2 MEDICAL LAUREN EXAMINATI IMAGING ON CHEST ASS SINGLE VIEW FRONTAL ECG 62952 ELI BENITEZ ROUTINE 2 III WHIT III WHIT ECG W/LEAST 12 LDS I&[place] [address] MASOUD MEREDITH MAGNESIUM 2 [place] [address] MASOUD MEREDITH LIPASE 2 [facility] INC INC CREATINE 68062 MASOUD MEREDITH KINASE 2 [facility] [place] [address] MASOUD MEREDITH TROPONIN 2 [facility] [place] [address] MASOUD MEREDITH ABDOMEN & 2 [facility] PELVIS INC INC W/O CONTRAST MATERIAL BLOOD 31122 MASOU[facility] MEREDITH COUNT 2 [facility] COMPLETE INC INC AUTO&AUTO DIFRNTL WBC ECG 64245 MASOUD MEREDITH ROUTINE 2 [facility] ECG INC INC W/LEAST 12 LDS TRCG ONLY W/O I&[place] [address] MASOUD MEREDITH AMYLASE 2 [facility] INC INC CREATINE 82606 MASOUD MEREDITH KINASE MB 2 [facility] FRACTION INC INC ONLY ECG 60343 ARNULFO ARREDONDO ROUTINE 2 GUSTAVO GUSTAVO ECG W/LEAST 12 LDS I&R ONLY RADIOLOGI 06232 [facility] C 2 MEDICAL LAUREN EXAMINATI IMAGING [place] [address] MASOUD MEREDITH INFUSION 2 [facility] THERAPY/P INC INC ROPHYLAXI S /DX 1ST TO 1 HR THERAPEUT 35464 MASOUD MEREDITH IC 2 [facility] INJECTION INC INC IV PUSH EACH NEW DRUG BASIC 07921 MASOUD MEREDITH METABOLIC 2 [facility] PANEL INC INC CALCIUM TOTAL HEPATIC 89326 MASOUD MEREDITH FUNCTION 2 [facility] PANEL INC INC GROUND A0425 [facility] MILEAGE 2 AMBULANCE AMBULANCE PER SERVICE SERVICE STATUTE MILE AMB A0427 [facility] SERVICE 2 AMBULANCE AMBULANCE ALS SERVICE SERVICE EMERGENCY TRANSPORT LEVEL 1 INITIAL 09817 CHEEMA AREN CHEEMA AREN INPATIENT 2 CONSULT NEW/ESTAB PT 80 MIN RADIOLOGI 88455 UVALDOY SLADE C 2 MEDICAL LAUREN EXAMINATI IMAGING ON CHEST ASS SINGLE VIEW FRONTAL CULTURE 83084 COMBINED COMBINED BACTERIAL 2 PHYSICIAN PHYSICIAN S LA S LA QUANTTATI VE COLONY COUNT URINE URNLS DIP 02485 JAY ANTHONYSON 2 CHARLES CHARLES STICK/TAB LET RGNT NON-AUTO W/O MICRSCP COMPREHEN 01579 [facility]ITH SIVE 2 [facility] [place] [address] BEATRIZ SLADE ABDOMINAL 2 MEDICAL LAUREN REAL IMAGING TIME ASS W/IMAGE DOCUMENTA TION BASIC 22038 MASOUD MEREDITH METABOLIC 2 [facility] PANEL INC INC CALCIUM TOTAL RADIOLOGI 39552 [facility] C 2 MEDICAL LAUREN EXAMINATI IMAGING ON CHEST ASS SINGLE VIEW FRONTAL AMB A0427 [facility] SERVICE 2 AMBULANCE AMBULANCE ALS SERVICE SERVICE EMERGENCY TRANSPORT LEVEL 1 GROUND A0425 [facility] 2 AMBULANCE AMBULANCE PER SERVICE SERVICE STATUTE MILE ECG 45975 [facility] OCASIO ROUTINE 2 EMERGENCY ECG SERVICES W/LEAST 12 LDS I&R ONLY THERAPEUT 40412 THOMAS GUZMAN IC 2 JR WHIT JR WHIT PROPHYLAC TIC/DX INJECTION SUBQ/IM ECG 92434 [facility] FIELDS ROUTINE 2 HWIT WHIT ECG W/LEAST 12 LDS I&R ONLY RADIOLOGI 35578 [facility] SL[facility] C 2 MEDICAL LAUREN EXAMINATI IMAGING [place] [address] [facility] MCKEONSLADE ABDOMEN & 2 MEDICAL LAUREN PELVIS IMAGING W/O ASS CONTRAST MATERIAL ECG 62709 [facility] WALLS ROUTINE 2 EMERGENCY ECG SERVICES W/LEAST 12 LDS I&R ONLY GROUND A0425 [facility] 2 AMBULANCE AMBULANCE PER SERVICE SERVICE STATUTE MILE CRITICAL 63363 [facility] CARE 2 EMERGENCY ILL/INJUR SERVICES ED PATIENT INIT 30-74 MIN AMB A0427 [facility] SERVICE 2 AMBULANCE AMBULANCE ALS SERVICE SERVICE EMERGENCY TRANSPORT LEVEL 1 SPECIAL 44111 PATHOLOGY NANDO GUSTAVO STAIN 2 & GROUP 1 CYTOLOGY MICROORGA [place] NIS[place] [address] PATHOLOGY NANDO GUSTAVO SURG 2 & PATHOLOGY CYTOLOGY LAB GROSS&GUSTAVO ROSCOPIC EXAM ECG 49998 [facility]OGER GARDNER BAB ROUTINE 2 EMERGENCY ECG SERVICES W/LEAST 12 LDS I&R ONLY RADIOLOGI 45426 [place] SLADE C 2 MEDICAL LAUREN EXAMINATI IMAGING ON CHEST ASS SINGLE VIEW FRONTAL INITIAL [address] [facility] FAC[facility] CARE/DAY 35 MINUTES ELECTROEN 44694 ALBRECHT GUL ALBRECHT GUL CEPHALOGR 2 AM W/REC AWAKE&[place] [address] [facility] K[facility] ANGIOGRAP 2 Y OF HY HEAD [place] W/CONTRAS HOSPI T/[place] [address] [facility] KWA ANGIOGRAP 2 Y OF HY NECK [place] W/[place] [address] [facility] MERHAR HEAD/BRAI 2 Y [facility] N [facility] AM[facility] A0427 [facility] SERVICE 2 AMBULANCE AMBULANCE ALS SERVICE SERVICE EMERGENCY TRANSPORT LEVEL 1 GROUND A0425 [facility]UL[facility] [place] [address] AMARJ[facility] [place] HEAD/BRAI 2 [place] [address] DENISSE SALCEDO ABDOMINAL 2 SCO SCO REAL TIME W/IMAGE DOCUMENTA TION DUP-SCAN 31588 DENISSE SALCEDO ARTL GA 2 SCO SCO ABDL/PEL/ SCROT&/RP R ORGN COM AMB A0426 [facility] 2 MEDICAL MEDICAL ALS RESPONSE RESPONSE NONEMERGE NCY TRANSPORT LEVEL 1 GROUND A0425 [facility]ICAL PER RESPONSE RESPONSE STATUTE MILE SBSQ 54738 [facility] 2 GRE GRE CARE/DAY 25 MINUTES SBSQ 93208 [facility] 2 YUR YUR CARE/DAY 35 MINUTES RADIOLOGI 60560 [facility] C 2 RADIOLOGY EXAMINATI ASSOC ON CHEST SINGLE VIEW FRONTAL SBSQ 50599 [facility] 2 GRE GRE CARE/DAY 25 MINUTES SBSQ 32223 [facility] 2 GRE GRE CARE/DAY 25 MINUTES SBSQ 56654 [facility] 2 YUR YUR CARE/DAY 35 MINUTES SBSQ 38328 [facility] 2 YUR YUR CARE/DAY 25 MINUTES SBSQ 20711 [facility] 2 EIN DON EIN DON CARE/DAY 35 MINUTES SBSQ 96274 [facility] 2 EIN DON EIN DON CARE/DAY 25 MINUTES SBSQ 29419 [facility] 2 CHARLES CHARLES CARE/DAY 25 MINUTES SBSQ 20277 [facility] 2 EIN DON EIN DON CARE/DAY 35 MINUTES SBSQ 27604 [facility] 2 EIN DON EIN DON CARE/DAY 35 MINUTES ABDOM 08894 [facility] 2 RADIOLOGY MARTA SIS ASSOC DX/THER W/[place] [address] [facility] ABDOMEN & 2 RADIOLOGY MARTA PELVIS ASSOC W/[place] [address] [facility] MAR ABDOMEN & 2 RADIOLOGY PELVIS ASSOC W/O CONTRAST MATERIAL INITIAL 79253 [facility] 2 NEUROLOGY S LINCOLN CARE/DAY SERVICES 70 MINUTES RADIOLOGI 53524 [facility] GOME[facility] J C 2 RADIOLOGY EXAMINATI ASSOC ON CHEST SINGLE VIEW FRONTAL CRITICAL 87011 [facility] 2 EMERGENCY DIANE ILL/INJUR PHYS PSC ED PATIENT INIT 30-74 MIN RADEX ABD 57189 COLLIER COLLIER COMPL 2 DON DON AQT ABD W/S/E/D VIEWS 1 VIEW CH URNLS DIP 90398 COLLIER COLLIER 2 DON DON STICK/TAB LET RGNT NON-AUTO W/O MICRSCP ELECTROEN 23407 [facility] CEPHALOGR 2 GRE GRE AM W/REC AWAKE&ASL EEP RADEX ABD 60568 SLADE SLADE COMPL 2 LAUREN LAUREN AQT ABD W/S/E/D VIEWS 1 VIEW CH LOCM Q9967 [facility] MEREDITH 300-399 2 [facility] MG/ML INC INC IODINE CONCENTRA TION PER ML URNLS DIP 90972 [facility] MEREDITH 2 [facility] STICK/TAB INC INC LET REAGENT AUTO MICROSCOP Y CULTURE 25898 [facility] MEREDITH BACTERIAL 2 [facility] INC INC QUANTTATI VE COLONY COUNT URINE CULTURE 31248 [facility] MEREDITH BCT 2 [facility] ISOL&PRSM INC INC PTV ID ISOLATE EA URINE SUSCEPTIB 43561 MAS[facility] MEREDITH LTY STDY 2 [facility] ANTIMICRB INC INC IAL MICRO/AGA R DILUTJ COMPREHEN 75560 [facility] MEREDITH SIVE 2 [facility] [place] [address] SLADE SLADE ABDOMEN & 2 LAUREN LAUREN [place] [address] MASOUD MEREDITH INFUSION 2 [facility] THER INC INC PROPH ADDL SEQUENTIA L TO [address] [place] [address] MASOUD MEREDITH LIPASE 2 [place] [address] MASOUD MEREDITH AMYLASE 2 [facility] INC INC BLOOD 27079 [facility] MEREDITH COUNT 2 [facility] COMPLETE INC INC AUTO&AUTO DIFRNTL WBC BLOOD 98715 [facility] MEREDITH COUNT 1 [facility] COMPLETE INC INC AUTO&[place] [address] MASOUD MEREDITH AMYLASE 1 [facility] INC INC ECG 85591 MASOUD MEREDITH ROUTINE 1 [facility] ECG INC INC W/LEAST 12 LDS TRCG ONLY W/O I&R CREATINE 81641 MASOUD MEREDITH KINASE MB 1 [facility] FRACTION INC INC ONLY CREATINE 23439 MAS[facility] MEREDITH KINASE 1 [facility] [place] [address] MASOUD MEREDITH LIPASE 1 [place] [address] MASOUD MEREDITH TROPONIN 1 [facility] QUANTITAT INC INC DAVE GLUC BLD 66741 MASOUD MEREDITH GLUC MNTR 1 [facility] DEV [place] [address] MASOUD MEREDITH INFUSION 1 [facility] THER INC INC PROPH ADDL SEQUENTIA L TO 1 HR INJECTION J2405 [facility] MEREDITH 1 [facility] ONDANSETR INC INC ON HCL PER 1 MG COMPREHEN 00076 [facility] MEREDITH SIVE 1 [facility] METABOLIC INC INC PANEL ECG 25131 ELI BENITEZ ROUTINE 1 III WHIT III WHIT ECG W/LEAST 12 LDS [place] [address] MASOUD MEREDITH INFUSION 1 [facility] THERAPY/P INC INC ROPHYLAXI S /DX 1ST TO 1 HR RADIOLOGI 89323 MASOUD MASOUD C 1 [facility] EXAMINATI INC INC ON CHEST SINGLE VIEW FRONTAL RADIOLOGI 41228 [place] [facility] C 1 MEDICAL LAUREN EXAMINATI IMAGING ON KNEE 3 ASS VIEWS RADEX 44227 [facility] SPINE 1 MEDICAL LAUREN LUMBOSACR IMAGING AL ASS MINIMUM 4 VIEWS SBSQ 28389 [facility] 1 CARE/DAY 15 MINUTES SBSQ 62789 [facility] 1 CARE/DAY 25 MINUTES INITIAL 05471 [facility] INPATIENT 1 CONSULT NEW/ESTAB PT 20 MIN RADIOLOGI 60351 [place] C 1 MEDICAL LAUREN EXAMINATI IMAGING ON CHEST ASS SINGLE VIEW FRONTAL ECG 67238 MASOUD MEREDITH ROUTINE 1 [facility] ECG INC INC W/LEAST 12 LDS TRCG ONLY W/O I&R CREATINE 37001 MASOUD MEREDITH KINASE MB 1 [facility] FRACTION INC INC ONLY BLOOD 19047 MASOUD MEREDITH COUNT 1 [facility] COMPLETE INC INC AUTO&[place] [address] MASOUD MEREDITH TROPONIN 1 [facility] QUANTITAT INC INC DAVE CREATINE 83321 MASOUD MEREDITH KINASE 1 [facility] TOTAL INC INC ECG 07932 MASOUD IBRAHIMA DWI ROUTINE 1 [facility] W/LEAST P 12 LDS I&R ONLY COMPREHEN 29480 MASOUD MEREDITH SIVE 1 [facility] METABOLIC INC INC PANEL RADIOLOGI 94473 BEATRIZ SLADE C 1 MEDICAL LAUREN EXAMINATI IMAGING ON PELVIS ASS 1/2 VIEWS RADEX HIP 04606 UVALDOY SLADE 1 MEDICAL LAUREN UNILATERA IMAGING L ASS COMPLETE MINIMUM 2 VIEWS 3D 40023 [facility] SLADE RENDERING 1 MEDICAL LAUREN W/INTERP IMAGING & [place] [address] BEATRIZ SLADE HEAD/BRAI 1 MEDICAL LUAREN N W/O IMAGING CONTRAST ASS MATERIAL RADIOLOGI 22877 [facility] SL[facility] C EXAM 1 MEDICAL LAUREN CHEST 2 IMAGING VIEWS ASS FRONTAL&[place] [address] [facility] SLADE ABDOMINAL 1 MEDICAL LAUREN REAL IMAGING TIME ASS W/IMAGE LIMITED ECG 30668 [facility] LAUREN ROUTINE 1 EMERGENCY ECG SERVICES W/LEAST 12 LDS I&R ONLY ECG 97170 MASOUD RAMIREZE ROUTINE [address] [facility] W/LEAST P 12 LDS I&R ONLY RADIOLOGI 50780 [facility] SL[facility] C EXAM 1 MEDICAL LAUREN CHEST 2 IMAGING VIEWS ASS FRONTAL&[place] [address] BEATRIZ SLADE HEAD/BRAI 1 MEDICAL LAUREN N W/O IMAGING CONTRAST ASS MATERIAL 3D 88932 [facility] SLADE RENDERING 1 MEDICAL LAUREN W/INTERP IMAGING & ASS POSTPROCE SS SUPERVISI ON BLOOD 31898 MAS[facility]D MEREDITH COUNT 1 [facility] COMPLETE INC INC AUTO&AUTO DIFRNTL WBC IAADI 28718 MASOUD MEREDITH INFFLUENZ 1 [facility] A A VIRUS INC INC IAADI 09051 MASOUD MEREDITH INFLUENZA 1 [facility] B VIRUS INC INC CULTURE 56435 MASOUD MEREDITH BACTERIAL 1 [facility] BLOOD INC INC AEROBIC W/ID ISOLATES URNLS DIP 15473 MASOUD RIVERAON 1 [facility] STICK/TAB INC INC LET REAGENT AUTO MICROSCOP Y BASIC 29477 MASOUD MEREDITH METABOLIC 1 [facility] PANEL INC INC CALCIUM TOTAL ALS A0398 ADEEL DENIS ROUTINE 1 AMBULANCE AMBULANCE DISPOSABL SERVICE SERVICE E SUPPLIES GROUND A0425 ADEEL DENIS MILEAGE 1 AMBULANCE AMBULANCE PER SERVICE SERVICE STATUTE MILE AMB A0427 [facility] SERVICE 1 AMBULANCE AMBULANCE ALS SERVICE SERVICE EMERGENCY TRANSPORT LEVEL 1 OBSERVATI 49530 COLLIER COLLIER ON CARE 1 DON DON DISCHARGE MANAGEMEN T MYOCARDIA 39698 MASOUD MEREDITH L SPECT 1 [facility] MULTIPLE INC INC STUDIES CV STRS 51716 [facility] FALLUJI TST 1 PHYSICIAN XAVIER XERS&/OR S GROUP RX CONT ECG W/O I&R CV STRS 21378 MAS[facility]D MEREDITH TST 1 [facility] XERS&/OR INC INC RX CONT ECG TRCG ONLY CREATINE 29395 MASOUD MEREDITH KINASE MB 1 [facility] FRACTION INC INC ONLY HOSPITAL G0378 MASOUD MEREDITH OBSERVATI 1 [facility] [place] [address] MASOUD MEREDITH TROPONIN 1 [facility] QUANTITAT INC INC DAVE CREATINE 99332 MASOUD MEREDITH KINASE 1 [facility] TOTAL INC INC COMPREHEN 25541 MASOUD MEREDITH SIVE 1 [facility] METABOLIC INC INC PANEL ECG 85660 MASOUD THOMPSON ROUTINE 1 [facility] W/LEAST P 12 LDS I&R ONLY NONINVASI 38057 MASOUD MEREDITH VE 1 [facility] EAR/PULSE INC INC OXIMETRY SINGLE DETER RADIOLOGI 12532 BEATRIZ Sanches 1 MEDICAL LAUREN EXAMINATI IMAGING ON CHEST ASS SINGLE VIEW FRONTAL CREATINE 30702 MASOUD MEREDITH KINASE 1 [facility] [place] [address] MASOUD MEREDITH TROPONIN 1 [facility] QUANTITAT INC INC DAVE BLOOD 89560 MAS[facility]D MEREDITH COUNT 1 [facility] COMPLETE INC INC AUTO&AUTO DIFRNTL WBC FIBRIN 17811 MASOUD MEREDITH DGRADJ 1 [facility] PRODUCTS INC INC D-DIMER QUAL/[facility] G0378 MASOUD MEREDITH OBSERVATI 1 [facility] ON INC INC SERVICE PER HOUR CREATINE 88833 MASOUD MEREDITH KINASE MB 1 [facility] FRACTION INC INC ONLY ECG 37543 MASOUD MEREDITH ROUTINE 1 [facility] ECG INC INC W/LEAST 12 LDS TRCG ONLY W/O I&R BASIC 34343 MASOUD MASOUD METABOLIC 1 [facility] PANEL INC INC CALCIUM TOTAL INITIAL 93704 AMIRA COLLIER OBSERVATI 1 DON DON ON CARE/DAY 50 MINUTES INITIAL 02845 [facility] INPATIENT 1 PHYSICIAN XAVIER CONSULT S GROUP NEW/ESTAB PT 80 MIN URNLS DIP 28272 MAS[facility] RIVERAON 0 [facility] STICK/TAB INC INC LET REAGENT AUTO MICROSCOP Y CREATINE 99473 MASOUD RIVERAON KINASE MB 0 [facility] FRACTION INC INC ONLY IAADI 97748 MASOUD MEREDITH INFFLUENZ 0 [facility] A A VIRUS INC INC IAADI 89582 MASOUD MEREDITH INFLUENZA 0 [facility] B VIRUS INC INC BLOOD 25169 MASOUD MEREDITH COUNT 0 [facility] COMPLETE INC INC AUTO&[place] [address] MASOUD MEREDITH TROPONIN 0 [facility] QUANTITAT INC INC DAVE CREATINE 78975 MASOUD MEREDITH KINASE 0 [facility] TOTAL INC INC RADIOLOGI 60034 [facility] CEBALLOS C EXAM 0 MEDICAL KATHERIN CHEST 2 IMAGING VIEWS ASS FRONTAL&[place] [address] MASOUD MEREDITH INFUSION 0 [facility] THERAPY/P INC INC ROPHYLAXI S /DX 1ST TO 1 HR COMPREHEN 50369 MAS[facility] MEREDITH SIVE 0 [facility] [place] [address] COMBINED COMBINED AMYLASE 0 PHYSICIAN PHYSICIAN S LA S LA GENERAL 10102 [facility] 0 PHYSICIAN [place] [address] ROGER ARREDONDO CLAVICULA 0 EMERGENCY AMIRA S R SERVICES FRACTURE W/O ASSOCIATE MANIPULAT S ION RADEX 92129 MASOUD MEREDITH SHOULDER 0 [facility] COMPLETE INC INC MINIMUM 2 VIEWS IAADIADOO 48026 AMIRA COLLIER, 0 DON R DON R STREPTOCO CCUS GROUP A RADIOLOGI 86692 MASOUD MEREDITH C 0 [facility] EXAMINATI INC INC ON PELVIS 1/2 VIEWS RADEX HIP 08445 MAS[facility]D MEREDITH 0 [facility] UNILATERA INC INC L COMPLETE MINIMUM 2 [place] [address] MASOUD MEREDITH LIPASE 9 [facility] INC INC BLOOD 68168 MASOUD MEREDITH COUNT 9 [facility] COMPLETE INC INC AUTO&[place] [address] MASOUD MEREDITH AMYLASE 9 [place] [address] MASOUD MEREDITH ABDOMEN 9 [facility] W/O INC INC CONTRAST MATERIAL COMPREHEN 32825 MASOUD MEREDITH SIVE 9 [facility] [place] [address] MASOUD MEREDITH INFUSION 9 [facility] THERAPY/P INC INC ROPHYLAXI S /DX 1ST TO 1 HR RHYTHM 03780 MASOUD MEREDITH ECG 1-3 9 [facility] LEADS INC INC TRACING ONLY W/O I&R URNLS DIP 97557 MASOUD MEREDITH 9 [facility] STICK/TAB INC INC LET REAGENT AUTO MICROSCOP Y BASIC 33227 MASOUD MEREDITH METABOLIC 9 [facility] PANEL INC INC CALCIUM TOTAL CT PELVIS 79914 MASOUD MEREDITH W/O 9 [facility] CONTRAST INC INC MATERIAL 3D 47490 MASOUD MEREDITH RENDERING 9 [facility] INC INC W/INTERP& [place] [address] MASOUD MEREDITH INFUSION 9 [facility] THERAPY INC INC PROPHYLAX IS/DX EA HOUR GROUND A0425 [facility] 9 AMBULANCE AMBULANCE PER SERVICE SERVICE STATUTE MILE AMBULANCE A0429 [facility] SERVICE 9 AMBULANCE AMBULANCE BLS SERVICE SERVICE EMERGENCY TRANSPORT GROUND A0425 [facility] PER SERVICE SERVICE STATUTE MILE AMB A0427 [facility] SERVICE 8 AMBULANCE AMBULANCE ALS SERVICE SERVICE EMERGENCY TRANSPORT LEVEL 1 AMB A0422 [facility] OXYGEN&O2 8 AMBULANCE AMBULANCE SUPPLIES SERVICE SERVICE LIFE SUSTAININ G SITUATION BASIC 23189 MASOUD MEREDITH METABOLIC 8 [facility] PANEL INC INC CALCIUM TOTAL RHYTHM 80443 MASOUD MEREDITH ECG 1-3 8 [facility] LEADS INC INC TRACING ONLY W/O I&R ECG 94392 MASOUD [place], CAROLEE 8 [facility] W/LEAST PROF SERV 12 LDS I&R ONLY RADIOLOGI 49286 Verónica CASTRO EXAMINATI IMAGING ON CHEST ASSOCIATE SINGLE S VIEW FRONTAL CREATINE 56605 MASOUD MEREDITH KINASE MB 8 [facility] FRACTION INC INC ONLY RADEX 40601 MASOUD MEREDITH FOOT 8 [facility] COMPLETE INC INC MINIMUM 3 VIEWS BLOOD 69868 MASOUD MEREDITH COUNT 8 [facility] COMPLETE INC INC AUTO&[place] [address] MASOUD MEREDITH TROPONIN 8 [facility] QUANTITAT INC INC DAVE NATRIURET 66510 MASOUD MEREDITH IC 8 [facility]OS[facility] PEPTIDE INC INC CREATINE 48206 MASOUD MEREDITH KINASE 8 [facility] TOTAL INC INC ECG 50540 MASOUD MEREDITH ROUTINE 8 [facility] ECG INC INC W/LEAST 12 LDS TRCG ONLY W/O I&R NONINVASI 72929 MASOUD MEREDITH VE 8 [facility] EAR/PULSE INC INC OXIMETRY OVERNIGHT MONITOR RADIOLOGI 24218 Verónica MARION EXAM 8 MEDICAL TAZ P CHEST 2 IMAGING VIEWS ASSOCIATE FRONTAL&L S ATERAL RHYTHM 47444 MASOUD MEREDITH ECG 1-3 8 [facility] MEM HOS[facility] LEADS INC INC TRACING ONLY W/[place] NFS 12153 MASOUD MEREDITH THER 8 [facility] PROPH/DX INC INC 1ST >1 [place] NFS 29358 MASOUD MEREDITH THER 8 [facility] PROPH/DX INC INC 1ST >1 HR IV NFS 31206 MASOUD MEREDITH THER 8 [facility] PROPH/DX INC INC 1ST >1 HR HOSPITAL 98205 [facility] 8 DON R DON R DAY MANAGEMEN T 30 MIN/< SBSQ 65257 [facility] 8 DON R DON R CARE/DAY [address] PELVIS 96282 [place] [facility], W/O 8 [facility] CONTRAST IMAGING MATERIAL ASSOCIATE S 3D 04266 [place], RENDERING 8 [facility] IMAGING W/INTERP& ASSOCIATE POSTPROC S DIFF WORK STATION INITIAL 25292 [facility] 8 DON R DON R CARE/[place] [address] [place] [address] [facility] ABDOMEN 8 MEDICAL MANGO W/O IMAGING CONTRAST ASSOCIATE MATERIAL S THER 20942 MASOUD MEREDITH PROPH/DX 8 [facility]OS[facility] NJX INC INC SUBQ/IM URNLS DIP 20714 MASOUD MEREDITH 8 [facility] STICK/TAB INC INC LET REAGENT AUTO MICROSCOP Y THER 64533 [facility] PROPH/DX 8 [facility] SUBQ/IM RADIOLOGI 66001 [facility] JUAREZ C [address] [place] [address] ON CHEST SINGLE VIEW FRONTAL COLLECTIO 85045 [facility] N VENOUS 8 [facility] VENIPUNCT URE ECG 15439 JUAREZ PIZARRO ROUTINE 8 [facility] W/LEAST 12 LDS TRCG ONLY W/O I&R CREATINE 17956 [place] [facility] KINASE [address] [place] [address] [place] [address] [facility] TROPONIN 8 [facility] DAVE BLOOD 67380 [facility] MACIASON COUNT 8 [facility] AUTO&AUTO DIFRNTL WBC BASIC 46736 [facility] METABOLIC 8 [facility] CALCIUM TOTAL ESOPHAGOG 83536 [facility] ASTRODUO 8 , ANA , ANA ENOSCOPY TRANSORAL DIAGNOSTI C SBSQ 64171 [facility] 8 , ANA , ANA CARE/DAY 15 MINUTES HEPATBL 89765 [facility] CEBALLOS S[facility] 8 MEDICAL TAZ Larsen IMG IMAGING GLBLDR ASSOCIATE S 91774 [facility] KARINA JUNE 8 MEDICAL MANGO REAL IMAGING TIME ASSOCIATE W/IMAGE S DOCUMENTA TION Encounters Encounter Start End Date Code Location Performer Type Date HOSPITAL [facility] - 7 7 [facility] OUTPATIEN INC T HOSPITAL MAS[facility]D - 6 6 [facility] OUTPATIEN [facility] 86248 [facility] 6 6 PHYSICIAN U JERICHO DEPARTMEN S, [facility] T VISIT HIGH/URGE NT SEVERITY HOSPITAL MAS[facility]D - 6 6 [facility] OUTPATIEN [facility] 73265 MAS[facility]D 6 6 [facility] T VISIT LOW/MODER SEVERITY OFFICE 90893 [facility] OUT[facility]IEN 6 6 [facility] VISIT INTERNAL 15 MED MINUTES HOSPITAL UNIVERSIT - 6 6 [place] INPATIENT [facility] PSYCH EMERGENCY 94251 [facility] WALL DEPT 6 6 PHYSICIAN VISIT S, PLLC HIGH SEVERITY& THREAT [facility] EMERGENCY 66915 [facility] RE[facility] DEPT 6 6 PHYSICIAN U JERICHO VISIT S, PLLC HIGH SEVERITY& THREAT FUNCJ OFFICE 22138 [facility] OUTPATIEN 6 6 [facility] VISIT INTERNAL 15 MED MINUTES OFFICE 02011 [facility] OUTPATI[facility] 6 6 [facility] T VISIT INTERNAL 15 MED MINUTES EMERGENCY 14238 [facility] MILNER JR 5 5 PHYSICIAN JAM DEPARTMEN S, PLL[facility] T VISIT HIGH/URGE NT SEVERITY OFFICE 92116 [facility] 5 5 [facility] T VISIT INTERNAL 15 MED MINUTES EMERGENCY 79683 [facility] YOUNG MOH 5 5 PHYSICIAN DEPARTMEN S[facility] T VISIT HIGH/URGE NT SEVERITY EMERGENCY 30863 [facility] MUNOZ 5 5 [facility]YSICIAN DEPARTMEN [facility] T VISIT HIGH/URGE NT SEVERITY OFFICE 96135 [facility] 4 4 [facility] T VISIT INTERNAL 15 MED MINUTES [facility] 4 [facility] T OFFICE 36236 [facility] 4 4 [facility] T VISIT INTERNAL 15 MED MINUTES EMERGENCY 72264 ALFARIS ALFARIS DEPT 4 4 [facility] VISIT HIGH SEVERITY& THREAT FUNCJ EMERGENCY 48295 [facility] 4 4 [facility] DEPARTMEN T VISIT HIGH/URGE NT SEVERITY SPECIAL [facility] [address] - OTHER GROUP [facility] SPECIAL [facility] 4 [address] - OTHER GROUP [facility]ICE HOSPICE 4 4 [facility] HOSPICE 4 4 [facility] HOSPICE 4 4 [facility] HOSPICE 4 4 [facility] HOSPICE 4 4 [facility] HOSPICE 4 4 [facility] HOSPICE HOSPICE 4 4 OF THE [facility] HOSPICE 3 3 OF [facility] EMERGENCY 16991 ALFARIS ALFARIS DEPT 3 3 [facility] VISIT HIGH SEVERITY& THREAT FUN [facility] - 3 3 [facility] OUTPATIEN INC T EMERGENCY 69985 R[facility]ER WALLS DEPT 3 3 EMERGENCY VISIT SERVICES HIGH SEVERITY& THREAT FUNCJ EMERGENCY 00790 ELI BENITEZ DEPT 3 3 III WHIT III WHIT VISIT HIGH SEVERITY& THREAT FUNCJ EMERGENCY 36079 RON VELASQUEZ 3 3 [facility] DEPARTMEN T VISIT MODERATE SEVERITY EMERGENCY 46515 [facility] 3 3 [facility] DEPARTMEN INC T VISIT LOW/MODER SEVERITY [facility] - 3 3 [facility] OUTPATIEN INC T EMERGENCY 56416 ROGER FIELDS DEPT 3 3 EMERGENCY WHIT VISIT SERVICES HIGH SEVERITY& THREAT FUN OFFICE 58403 [facility] T VISIT 25 MINUTES [facility] - 3 3 [facility] OUTPATIEN INC T EMERGENCY 10253 ROGER OCASIO DEPT 3 3 EMERGENCY VISIT SERVICES HIGH SEVERITY& THREAT FUNJ EMERGENCY 64069 [facility] 3 3 [facility] DEPARTMEN INC T VISIT HIGH/URGE NT SEVERITY EMERGENCY 02693 [facility] 3 3 [facility] DEPART[facility] INC T VISIT LOW/MODER SEVERITY [facility] - 3 3 [facility] OUT[facility] INC T EMERGENCY 66511 ELI BENITEZ 3 3 III WHIT III WHIT DEPARTMEN T VISIT HIGH/URGE NT SEVERITY OFFICE 34167 [facility] 2 2 [facility] T VISIT 15 MINUTES EMERGENCY 17245 ELI BENITEZ DEPT 2 2 III WHIT III WHIT VISIT HIGH SEVERITY& THREAT FUNCJ OFFICE 49687 [facility] OUT[facility] 2 2 [facility] T VISIT 25 MINUTES [facility] 2 2 [facility] INC T EMERGENCY 62279 [facility] 2 2 [facility] DEPARTMEN INC T VISIT HIGH/URGE NT SEVERITY [facility] - 2 2 [facility] OUTPAT[facility] INC T EMERGENCY 29849 ARNULFO ARREDONDO DEPT 2 2 GUSTAVO GUSTAVO VISIT HIGH SEVERITY& THREAT FUNJ EMERGENCY 22294 ROGER FIELDS DEPT 2 2 EMERGENCY WHIT VISIT SERVICES HIGH SEVERITY& THREAT FUNJ OFFICE 22784 [facility] OUTPATIEN 2 2 [facility] T VISIT 25 MINUTES [facility] 2 2 [facility] T [facility] 2 2 [facility] OUTPATIEN INC T EMERGENCY 82792 ROGER [facility] DEPT 2 2 EMERGENCY VISIT SERVICES HIGH SEVERITY& THREAT FUNJ EMERGENCY 48443 ROGER [facility] DEPT 2 2 EMERGENCY VISIT SERVICES HIGH SEVERITY& THREAT FUNCJ OFFICE 61614 MCKEMIE MCKEMIE OUTPATIEN 2 2 JR WHIT JR WHIT T VISIT 15 MINUTES OFFICE 01347 MCKEMIE MCKEMIE OUTPATIEN 2 2 JR WHIT JR WHIT T VISIT 15 MINUTES OFFICE 41529 MCKEMIE MCKEMIE OUTPATIEN 2 2 JR WHIT JR WHIT T VISIT 15 MINUTES EMERGENCY 56313 DIAMOND FIELDS DEPT 2 2 WHIT WHIT VISIT HIGH SEVERITY& THREAT FUNCJ OFFICE 57748 MCKEMIE MCKEMIE OUTPATIEN 2 2 JR WHIT JR WHIT T VISIT 15 MINUTES EMERGENCY 66198 ROGER WALLS DEPT 2 2 EMERGENCY VISIT SERVICES HIGH SEVERITY& THREAT FUNC OFFICE 94858 AMIRA COLLIER OUTPATIEN 2 2 DON DON T VISIT 25 MINUTES HOSPITAL [facility] - 2 2 [facility] OUTPATIEN INC T EMERGENCY 26505 PEREZ NA PEREZ NA DEPT 2 2 VISIT HIGH SEVERITY& THREAT FUNCJ EMERGENCY 29037 [facility] 2 2 [facility] DEPARTMEN INC T VISIT HIGH/URGE NT SEVERITY EMERGENCY 48410 ELI BENITEZ DEPT 1 1 III WHIT III WHIT VISIT HIGH SEVERITY& THREAT FUNCJ EMERGENCY 68280 MAS[facility]D 1 1 [facility] DEPARTMEN INC T VISIT HIGH/URGE NT SEVERITY HOSPITAL [facility] - 1 1 [facility] OUTPATIEN [facility] T EMERGENCY 67710 MAS[facility]D 1 1 [facility] DEPARTMEN INC T VISIT LOW/MODER SEVERITY EMERGENCY 57440 ROGER BENITEZ 1 1 EMERGENCY III [facility] EMERGENCY DEPARTMENT SERVICES T VISIT HIGH/URGE NT SEVERITY HOSPITAL [facility] - 1 1 [facility] OUTPATIEN [facility] MAS[facility]D - 1 1 [facility] OUTPATIEN INC T EMERGENCY 23731 [facility] DEPT 1 1 [facility] VISIT INC HIGH SEVERITY& THREAT FUNCJ EMERGENCY 30040 MAS[facility]D 1 1 [facility] DEPARTMEN [facility] T VISIT HIGH/URGE NT SEVERITY OFFICE 90035 AMIRA COLLIER OUTPATIEN 1 1 DON DON T VISIT 15 MINUTES EMERGENCY 47587 ROGER AGUILAR DEPT 1 1 EMERGENCY VISIT SERVICES HIGH SEVERITY& THREAT FUNC [facility]OSP[facility] - 1 1 [facility] OUTPATIEN INC T EMERGENCY 40603 [facility] 1 1 [facility] DEPARTMEN INC T VISIT HIGH/URGE NT SEVERITY EMERGENCY 99847 [facility] 1 1 [facility] DEPARTMEN INC T VISIT HIGH/URGE NT SEVERITY EMERGENCY 19991 ROGER DAVIS AND DEPT 1 1 EMERGENCY VISIT SERVICES HIGH SEVERITY& THREAT FUN [facility]OSP[facility] - 1 1 [facility] OUTPATIEN INC T EMERGENCY 91687 [facility] 0 0 [facility] DEPARTMEN INC T VISIT HIGH/URGE NT SEVERITY [facility]OSP[facility] - 0 0 [facility] OUTPATIEN [facility] T EMERGENCY 68943 ROGER BENITEZ DEPT 0 0 EMERGENCY III WHIT VISIT SERVICES HIGH SEVERITY& THREAT FUNCJ EMERGENCY 53462 ROGER ARREDONDO, 0 0 [facility] HIGH/URGE ASSOCIATE NT S SEVERITY [facility] - 0 0 [facility] OUTPATIEN INC T EMERGENCY 72295 [facility] 0 0 [facility] T VISIT LOW/MODER SEVERITY OFFICE 71958 AMIRA COLLIER OUTPATIEN 0 0 DON R DON R T VISIT 15 MINUTES OFFICE 74246 AMIRA COLLIER OUTPATIEN 0 0 DON R DON R T VISIT 15 MINUTES EMERGENCY 05437 ROGER BENITEZ 0 0 EMERGENCY III, DEPARTMEN SERVICES TAMARA T VISIT MODERATE ASSOCIATE SEVERITY S [facility]OSP[facility] - 0 0 [facility] OUT[facility]IEN INC T EMERGENCY 53612 [facility] 0 0 [facility] T VISIT LOW/MODER SEVERITY OFFICE 25221 AMIRA COLLIER OUTPATIEN 9 9 DON R DON R T VISIT 15 MINUTES HOSPITAL [facility] - 9 9 [facility] OUTPATIEN INC T EMERGENCY 82640 [facility] 9 9 [facility] T VISIT HIGH/URGE NT SEVERITY EMERGENCY 91824 ROGER ARREDONDO, DEPT 9 9 EMERGENCY AMIRA S VISIT SERVICES HIGH SEVERITY& ASSOCIATE THREAT S [facility] EMERGENCY 58674 SENA JOYNER, DEPT 8 8 [employer] E VISIT CORPORATI HIGH ON SEVERITY& THREAT [facility] EMERGENCY 65843 MAS[facility]D 8 8 [facility] T VISIT HIGH/URGE NT SEVERITY HOSPITAL [facility] - 8 8 [facility] OUTPATIEN [facility] MAOSUD - 8 8 [facility] 01571 [facility] [address] [facility] T VISIT LOW/MODER SEVERITY [facility]OSPITAL [facility] - 8 8 [facility] 88389 [facility] [address] [facility] T VISIT LOW/MODER SEVERITY OFFICE 63952 AMIRA COLLIER OUTPATIEN 8 8 DON R DON R T VISIT 15 MINUTES HOSPITAL [facility] - 8 8 [facility] - 8 8 [facility] - 8 8 [facility]PAT[facility] EMERGENCY 25477 MASOUD [address] [facility] T [facility]ISIT LIMITED/M INOR PROB HOSPITAL [facility] - 8 8 [facility] JU[facility] - 8 8 [facility] EMERGENCY 85589 JUAREZ 8 8 [facility] T VISIT MODERATE SEVERITY OFFICE 94335 [facility] 8 8 , ANA PEREZ T VISIT 15 MINUTES
--- OUTSIDE RECORDS SUMMARY | 2017-04-01 06:46 | External Medical Summary Rpt ---
Author Author , Organization [employer] Address Unknown Phone Unavailable Purpose Continuity of Care Document - 09-16-2013 through 2016 Immunization Name Date Route CVX Reacti Commen Provid Is Given on t er Refuse d PPV23 Histor UK1 No 2012 ical Inform ation - Source Unspec ified Influe Histor [facility] No nza, 2012 ical Season Inform al ation - Source Unspec ified
--- OUTSIDE RECORDS SUMMARY | 2017-04-01 06:46 | External Medical Summary Rpt ---
Author Author , Organization [employer] Address Unknown Phone Unavailable Purpose Continuity of Care Document - 09-16-2013 through 2016 Immunization Name Date Route CVX Reacti Commen Provid Is Given on t er Refuse d PPV23 Histor UK1 No 2012 ical Inform ation - Source Unspec ified Influe Histor [facility] No nza, 2012 ical Season Inform al ation - Source Unspec ified
--- OUTSIDE RECORDS SUMMARY | 2017-04-01 06:46 | External Medical Summary Rpt ---
Author Author THI[employer]Y Rachell, [employer] Organization [employer] Address Unknown Phone Unavailable Results Comprehensive metabolic 2000 panel in Serum or Plasma Observa Value Referen Units Interpr Notes Date tion ce etation Range Albumin/G 1.1 - 1.8 No Low No Feb 9 lobulin informati informati 2017 9:59 [Mass on in on in AM ratio] in source source Serum or data data Plasma Albumin 3.4 - 5.0 gm/dL Low No Feb 9 [Mass/vol informati 2017 9:59 ume] in on in AM Serum or source Plasma data Alkaline 46 - 116 U/L High No Feb 9 phosphata informati 2017 9:59 se on in AM [Enzymati source c data activity/ volume] in Serum or Plasma Bilirubin 0.2 - 1.0 mg/dL Normal No Feb 9 .total informati 2016 9:59 [Mass/vol on in AM ume] in source Serum or data Plasma Urea 7 - 18 mg/dL Low No Mar 06 nitrogen informati 2017 9:59 [Mass/vol on in AM ume] in source Serum or data Plasma Calcium 8.5 - mg/dL Low Feb 9 [Mass/vol 10.1 NOTIFICAT 2017 9:59 ume] in ION AM Serum or RESULT Plasma Chloride 98 - 107 mmoL/L Low No Feb 9 [Moles/vo informati 2017 9:59 lume] in on in AM Serum or source Plasma data Carbon 21.0 - mmoL/L Normal No Mar 06 dioxide, 32.0 informati 2017 9:59 total on in AM [Moles/vo source lume] in data Serum or Plasma Creatinin 0.55 - mg/dL Low No Feb 9 e 1.02 informati 2017 9:59 [Mass/vol on in AM ume] in source Serum or data Plasma Estimated 59- ML/MIN No REFERENCE Jerry 9 informati RANGE: 2017 9:59 glomerula on in >60 AM r source ML/MIN/1. filtratio data 73 SQUARE n rate METERSIf (GF this patient is -A merican, then multiply theresult by 1.210. Globulin 1.3 - 3.2 gm/dL High No Feb 9 [Mass/vol informati 2016 9:59 ume] in on in AM Serum source data Glucose 74 - 106 mg/dL Normal No Feb 9 [Mass/vol informati 2016 9:59 ume] in on in AM Serum or source Plasma data Potassium 3.5 - 5.1 mmoL/L Low alert Mar 06 2017 9:59 [Moles/vo CRITICAL AM lume] in RESULTS Serum or Plasma RESU LTS CALLED TO: 03/06/17 1136 Ama Banks Sodium 136 - 145 mmoL/L Low No Feb 9 [Moles/vo informati 2017 9:59 lume] in on in AM Serum or source Plasma data Aspartate 15 - 37 U/L High No Mar 06 informati 2016 9:59 aminotran on in AM sferase source [Enzymati data c activity/ volume] in Serum or Plasma Alanine 12 - 78 U/L Normal No Mar 06 aminotran informati 2016 9:59 sferase on in AM [Enzymati source c data activity/ volume] in Serum or Plasma Protein 6.4 - 8.2 gm/dL Normal No Feb 9 [Mass/vol informati 2017 9:59 ume] in on in AM Serum or source Plasma data CBC W Auto Differential panel in Blood Observa Value Referen Units Interpr Notes Date tion ce etation Range Basophils 0 - 0.2 K/MM3 Normal No Mar 06 informati 2016 9:59 [#/volume on in AM ] in source Blood by data Automated count Basophils 0.1 - 2.0 % Normal No Mar 06 informati 2016 9:59 leukocyte on in AM s in source Blood by data Automated count Eosinophi 0.0 - 0.4 K/mm3 Normal No Mar 06 ls informati 2016 9:59 [#/volume on in AM ] in source Blood by data Automated count Eosinophi 0.1 - % Normal No Mar 06 ls/100 12.0 informati 2016 9:59 leukocyte on in AM s in source Blood by data Automated count Granulocy 1.8 - 7.8 K/mm3 Normal No Feb 9 john informati 2017 9:59 [#/volume on in AM ] in source Blood by data Automated count Granulocy 37.0 - % Normal No Feb 9 john/100 80.0 informati 2017 9:59 leukocyte on in AM s in source Blood by data Automated count Hematocri 37.0 - % Normal No Mar 06 t [Volume 47.0 informati 2017 9:59 on in AM Fraction] source of Blood data Hemoglobi 12.2 - g/dL Normal No Feb 9 n 16.2 informati 2017 9:59 [Mass/vol on in AM ume] in source Blood data Lymphocyt 0.7 - 4.5 K/mm3 Normal No Mar 06 es informati 2017 9:59 [#/volume on in AM ] in source Unspecifi data ed specimen by Automated count Lymphocyt 10 - 50.0 % Normal No Mar 06 es informati 2017 9:59 [#/volume on in AM ] in source Unspecifi data ed specimen by Automated count Erythrocy 27 - 31.2 pg High No Mar 06 te mean informati 2017 9:59 corpuscul on in AM ar source hemoglobi data n [Entitic mass] Erythrocy 31.8 - g/dl Normal No Mar 06 te mean 35.4 informati 2017 9:59 corpuscul on in AM ar source hemoglobi data n concentra tion [Mass/vol ume] by Automated count Erythrocy 82.2 - fl High No Mar 06 te mean 97.8 informati 2017 9:59 corpuscul on in AM ar volume source [Entitic data volume] by Automated count Monocytes 0.1 - 1.0 K/mm3 Normal No Feb 9 informati 2017 9:59 [#/volume on in AM ] in source Blood by data Automated count Monocytes 1.7 - 9.3 % Normal No Feb 9 / informati 2017 9:59 leukocyte on in AM s in source Blood by data Automated count Platelet 7.4 - fl Normal No Feb 9 mean 10.4 informati 2017 9:59 volume on in AM [Entitic source volume] data in Blood by Automated count Platelets 142 - 424 K/mm3 Low No Jerry 9 informati 2017 9:59 [#/volume on in AM ] in source Blood data Erythrocy 4.2 - 5.4 M/mm3 Low No Feb 9 john informati 2017 9:59 [#/volume on in AM ] in source Amniotic data fluid Erythrocy 11.5 - % Normal No Mar 06 te 17.5 informati 2017 9:59 distribut on in AM ion width source [Entitic data volume] by Automated count Leukocyte 4.8 - K/MM3 Low No Mar 06 s 10.8 informati 2017 9:59 [#/volume on in AM ] in source Blood data INR in Blood by Coagulation assay Observa Value Referen Units Interpr Notes Date tion ce etation Range INR in 0.9 - 1.1 No High INDICATIO Mar 06 Blood by informati N 2017 9:59 Coagulati on in AM on assay source INR data RANGETHER APY FOR DVT, PE, ATRIAL FIB; 2.0 - 3.0PROPHY LAXIS FOR VTETHERAP Y FOR MECHANICA L HEART 2.5 - 3.5VALVE; PREVENTIO N OF SYSTEMICE MBOLISM SECONDARY TO AMI Prothromb 9.4 - SECONDS High No Mar 06 in time 11.8 informati 2017 9:59 (PT) in on in AM Platelet source poor data plasma by Coagulati on assay
[2017-04-01] MEDS ORDERED: NORCO 325 MG-51 TAB PO (07:50)
--- NOTE | 2017-04-01 07:54 | RADIOLOGY REPORT PS360 ---
KNEE-3 VIEWS-LT HISTORY: Left knee pain and swelling PAIN ORDERING PHYSICIAN: Janneth Escobar MD PATIENT AGE: 46 years COMPARISON: 07/10/2011 FINDINGS: No fracture or dislocation. No lytic or blastic change. Normal mineralization. No significant arthritic changes evident. There is a large knee joint effusion. There is mild osteopenia about the knee joint. IMPRESSION: 1. Large knee joint effusion with osteopenia. 2. Otherwise negative, no acute bony pathology
--- NOTE | 2017-04-01 07:56 | RADIOLOGY REPORT PS360 ---
PELVIS AP ONLY HISTORY: Left hip pain PAIN ORDERING PHYSICIAN: Janneth Escobar MD PATIENT AGE: 46 years COMPARISON: 03 14 16 FINDINGS: Gamma nail is present with side plate within the left proximal femur. There are osteoarthritic changes of left hip with scattered calcifications inferior to the hip joint. No acute fracture or dislocation. IMPRESSION: Prior ORIF left hip with osteoarthritic change. No acute finding
[2017-04-01 07:57] VITALS: BP 131/77
== END 2017-04-01 07:58 | disposition home or self-care (01) ==
LOC: ER 06:12
PROC: 2W3MX1Z Immobilization of Left Lower Extremity using Splint (ICD-10-PCS; principal; 2017-04-01)
DX: S83.92XA Sprain of unspecified site of left knee, initial encounter (principal); W19.XXXA Unspecified fall, initial encounter; Y92.009 Unspecified place in unspecified non-institutional (private) residence as the place of occurrence of the external cause

== ENCOUNTER 2017-06-18 22:31 | Emergency (ER) | payer MEDICAID ==
[~2017-06-18] VITALS: Ht 157.5 cm; Wt 49.9 kg
[~2017-06-18 22:31] MED LIST changes: +NORCO 325 MG-51 TAB PO
--- NOTE | 2017-06-18 22:42 | Emergency Room Report ---
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 TRIPPED OVER RUG AT FIRST STOP AND FELL. 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 N Clinical Suspician of Infection? N Mental Status: 1 - Regular (Normal Baseline) Sepsis Risk:Low Sepsis Risk Have you (or family members/close friends) recently traveled outside the [place]? N If Yes, where/when: Have you had exposure to infectious disease within the past month? N TB? Other? Specify: Source patient, RN notes reviewed, EMS, old records Exam Limitations no limitations Comment trip injury with rt shoulder pain and hit rt hand and face with no loc and no neuro sx - no hip pain Cardiac Chest Pain Chest pain indicative of cardiac No Timing/Duration this evening Severity moderate ALLERGIES Coded Allergies: Penicillins (NA-NAUSEA/VOMITING 05/21/16) butorphanol (From STADOL) (HIVES/ITCHING 05/21/16) codeine (NA-NAUSEA/VOMITING 05/21/16) Home Medications Active Scripts Levetiracetam (Keppra 500 Mg Tablet) 500 MG PO BID #20 TAB Prov: 02/07/14 HYDROCODONE/ACETAMINOPHEN (Hiram 5-325 Tablet) 1 TAB PO Q6HP PRN pain #5 TAB Prov: 04/01/17 Reported Medications Topiramate (Topamax) 50 MG PO QHS Furosemide (Lasix 40MG) 40 MG PO BID Spironolactone (Aldactone 100MG) 100 MG PO BID Fluoxetine Hcl (Prozac) 60 MG PO DAILY Potassium Chloride (K-Dur) 20 MEQ PO BID History Medical History General CAD? No Angina: Yes [place]: Yes Hypertension? No Hyperlipidemia? No CHF? Yes DVT? No PE? No COPD? No Asthma? No Anemia? Yes GERD? No Gastric ulcers? No GI Bleed? No Hernia? Yes Thyroid Problems? No Hypothyroidism? No CVA? No Seizures? Yes Diabetes? No Insulin Dependent: No Insulin Pump: No Home FSBS? No Renal Insuffiency? No End Stage Renal Disease? No UTI? Yes Stones? Yes BPH? No GB Disease: Yes Nephritic Syndrome? No Asplenia? No Hepatitis? Yes Sickle Cell Disease? No Arthritis? Yes Migraines? No Cataracts? No Glaucoma? No MRSA? No HIV? No TB? No Anxiety? Yes Depression? Yes Cancer? No More? Yes Additional hx: CIRRHOSIS OF THE LIVER Immunization Hx DT/Tetanus Unknown Flu 07/03/15 Pneumonia Received In Past Surgical Hx Previous Surgery?Y L OOPHERECTOMY S/P UTERINE SCRAPING X 2 LIVER BIOPSY ABLATION OF UTERUS. 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 Respiratory denies cough, denies shortness of breath Cardiovascular denies chest pain, denies palpitations, denies syncope Gastrointestinal denies abdominal pain, denies diarrhea, denies vomiting Genitourinary denies: dysuria, frequency, hesitancy, hematuria. Musculoskeletal see HPI, denies back pain, joint pain, joint swelling, denies neck pain Skin see HPI, other Psychiatric/Neurological denies headache, denies seizure Physical Exam Vital Signs Vital Signs Date Time Temp Pulse Resp B/P Pulse O2 O2 Flow FiO2 Ox Delivery Rate 06/18 2312 69 20 100/70 99 06/18 2233 98.8 86 20 97/68 96 - WBC >12,000 or <4,000 or 10% bands? 2 or more SIRS Criteria Met? B/P:100/70 MAP:77 Creatinine >2.0? UA output<0.5ml/kg/hr for 2 hrs? Platelet count >100,000? Lactate >2.0mmol/1? INR >1.2 or PTT > than 60 sec? Evidence of Organ Dysfunction? Provider documented clinical suspician of infection? N Sepsis Criteria Count: 1 Sepsis Risk: Low Sepsis Risk General Appearance no apparent distress Eye Exam - bilateral eye PERRL, bilateral eye EOMI Ear, Nose, Throat normal ENT inspection, normal pharynx, no evid of tongue biting Neck non-tender Respiratory Status No: respiratory distress. Lung Sounds bilateral: lungs clear. 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 No Results/Orders Laboratory Tests 06/18/17 2308: Sodium 135 L, Potassium 2.9 *L, Chloride 98, Carbon Dioxide 28, BUN 8, Creatinine 0.5 L, Estimated Creat Clear 110, Estimated GFR (MDRD) 132, Glucose 84, Calcium 8.0 L, Total Bilirubin 0.7, AST 33, ALT 13, Alkaline Phosphatase 176 H, Total Protein 7.9, Albumin 3.1 L, Globulin 4.8 H, Albumin/Globulin Ratio 0.6 L, WBC 5.2, RBC 3.71 L, Hgb 12.2, Hct 36.7 L, MCV 98.7 H, RDW 12.9 , Plt Count 127 L, MPV 7.5, Gran % 40.1, Gran # 2.1, Total Counted Pending, Lymphocytes % 50.6 H, Monocytes % 4.7, Eosinophils % 4.0, Basophils % 0.5, Neutrophils Pending, Lymphocytes (Manual) Pending, Lymphocytes # 2.6, Monocytes # 0.2, Eosinophils # 0.2, Basophils # 0.0, Platelet Estimate Pending, PUBS MCHC 33.3, MCH 32.8 H, Alcohols 115 H Current Medication Orders Sig/Bee Start time Last Medication Dose Route Stop Time Status Admin Acetaminophen 500 MG ONCE ONE 06/18 2330 DCr PO 06/18 2331 Acetaminophen 500 MG ONCE ONE 06/18 2330 DCr 06/18 PO 06/18 Acetaminophen 0 .STK-MED ONE 06/18 2325 DCr PO Orders Procedure Date/time Status STABILIZE JOINT 06/19 2306 Active DIFFERENTIAL-WBC 06/18 2308 Active [id number] VIEWS 06/18 2243 Active PELVIS AP ONLY 06/18 2243 Active HAND-RT 3 VIEWS 06/18 2243 Active FACIAL BONES 3 VIEWS 06/18 2243 Active CHEST(2 VIEWS-NOT PORTABLE) 06/18 2243 Active URINALYSIS/COMPLETE 06/18 2243 Active DRUG ABUSE SCREEN (TRIAGE) 06/18 2243 Active COMPLETE METABOLIC PANEL 06/18 2243 Complete CBC WITH AUTO DIFF 06/18 2243 Active ALCOHOL 06/18 2243 Complete XRAY/CT/US XRAY/CT/US XRAY chest, facial bones, hand, pelvis, shoulder XR interpretation by reviewed by me Xray Results abnormal (shoulder fx ) Departure Departure Time of Disposition 0020 Disposition DC Home or Self Care(routine) Clinical Impression Primary Impression: Shoulder fracture, right Qualifiers: Encounter type: initial encounter Fracture type: closed Qualified Code: S42.91XA - Fracture of right shoulder girdle, part unspecified, initial encounter for closed fracture Secondary Impressions: Alcohol abuse with intoxication Facial contusion Qualifiers: Encounter type: initial encounter Qualified Code: S00.83XA - Contusion of other part of head, initial encounter Fall Qualifiers: Encounter type: initial encounter Qualified Code: W19.XXXA - Unspecified fall, initial encounter Sprain, hand Qualifiers: Encounter type: initial encounter Laterality: right Qualified Code: S63.91XA - Sprain of unspecified part of right wrist and hand, initial encounter Condition STABLE Referrals Darin Burroughs MD Patient Instructions DI for Shoulder Fracture Additional Instructions ice and wear sling and see pcp and ortho for follow up Discharge Counseling Counseled pt/family regarding diagnosis, test results, medications/RX, follow up needs ED Critical Care [place] Care [place] at 0030
--- NOTE | 2017-06-18 22:42 | Emergency Room Report ---
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 TRIPPED OVER RUG AT FIRST STOP AND FELL. 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 N Clinical Suspician of Infection? N Mental Status: 1 - Regular (Normal Baseline) Sepsis Risk:Low Sepsis Risk Have you (or family members/close friends) recently traveled outside the [place]? N If Yes, where/when: Have you had exposure to infectious disease within the past month? N TB? Other? Specify: Source patient, RN notes reviewed, EMS, old records Exam Limitations no limitations Comment trip injury with rt shoulder pain and hit rt hand and face with no loc and no neuro sx - no hip pain Cardiac Chest Pain Chest pain indicative of cardiac No Timing/Duration this evening Severity moderate ALLERGIES Coded Allergies: Penicillins (NA-NAUSEA/VOMITING 05/21/16) butorphanol (From STADOL) (HIVES/ITCHING 05/21/16) codeine (NA-NAUSEA/VOMITING 05/21/16) Home Medications Active Scripts Levetiracetam (Keppra 500 Mg Tablet) 500 MG PO BID #20 TAB Prov: 02/07/14 HYDROCODONE/ACETAMINOPHEN (Porter 5-325 Tablet) 1 TAB PO Q6HP PRN pain #5 TAB Prov: 04/01/17 Reported Medications Topiramate (Topamax) 50 MG PO QHS Furosemide (Lasix 40MG) 40 MG PO BID Spironolactone (Aldactone 100MG) 100 MG PO BID Fluoxetine Hcl (Prozac) 60 MG PO DAILY Potassium Chloride (K-Dur) 20 MEQ PO BID History Medical History General CAD? No Angina: Yes NV: Yes Hypertension? No Hyperlipidemia? No CHF? Yes DVT? No PE? No COPD? No Asthma? No Anemia? Yes GERD? No Gastric ulcers? No GI Bleed? No Hernia? Yes Thyroid Problems? No Hypothyroidism? No CVA? No Seizures? Yes Diabetes? No Insulin Dependent: No Insulin Pump: No Home FSBS? No Renal Insuffiency? No End Stage Renal Disease? No UTI? Yes Stones? Yes BPH? No GB Disease: Yes Nephritic Syndrome? No Asplenia? No Hepatitis? Yes Sickle Cell Disease? No Arthritis? Yes Migraines? No Cataracts? No Glaucoma? No MRSA? No HIV? No TB? No Anxiety? Yes Depression? Yes Cancer? No More? Yes Additional hx: CIRRHOSIS OF THE LIVER Immunization Hx DT/Tetanus Unknown Flu 07/03/15 Pneumonia Received In Past Surgical Hx Previous Surgery?Y L OOPHERECTOMY S/P UTERINE SCRAPING X 2 LIVER BIOPSY ABLATION OF UTERUS. 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 Respiratory denies cough, denies shortness of breath Cardiovascular denies chest pain, denies palpitations, denies syncope Gastrointestinal denies abdominal pain, denies diarrhea, denies vomiting Genitourinary denies: dysuria, frequency, hesitancy, hematuria. Musculoskeletal see HPI, denies back pain, joint pain, joint swelling, denies neck pain Skin see HPI, other Psychiatric/Neurological denies headache, denies seizure Physical Exam Vital Signs Vital Signs Date Time Temp Pulse Resp B/P Pulse O2 O2 Flow FiO2 Ox Delivery Rate 06/18 2312 69 20 100/70 99 06/18 2233 98.8 86 20 97/68 96 - WBC >12,000 or <4,000 or 10% bands? 2 or more SIRS Criteria Met? B/P:100/70 MAP:77 Creatinine >2.0? UA output<0.5ml/kg/hr for 2 hrs? Platelet count >100,000? Lactate >2.0mmol/1? INR >1.2 or PTT > than 60 sec? Evidence of Organ Dysfunction? Provider documented clinical suspician of infection? N Sepsis Criteria Count: 1 Sepsis Risk: Low Sepsis Risk General Appearance no apparent distress Eye Exam - bilateral eye PERRL, bilateral eye EOMI Ear, Nose, Throat normal ENT inspection, normal pharynx, no evid of tongue biting Neck non-tender Respiratory Status No: respiratory distress. Lung Sounds bilateral: lungs clear. 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 No Results/Orders Laboratory Tests 06/18/17 2308: Sodium 135 L, Potassium 2.9 *L, Chloride 98, Carbon Dioxide 28, BUN 8, Creatinine 0.5 L, Estimated Creat Clear 110, Estimated GFR (MDRD) 132, Glucose 84, Calcium 8.0 L, Total Bilirubin 0.7, AST 33, ALT 13, Alkaline Phosphatase 176 H, Total Protein 7.9, Albumin 3.1 L, Globulin 4.8 H, Albumin/Globulin Ratio 0.6 L, WBC 5.2, RBC 3.71 L, Hgb 12.2, Hct 36.7 L, MCV 98.7 H, RDW 12.9 , Plt Count 127 L, MPV 7.5, Gran % 40.1, Gran # 2.1, Total Counted Pending, Lymphocytes % 50.6 H, Monocytes % 4.7, Eosinophils % 4.0, Basophils % 0.5, Neutrophils Pending, Lymphocytes (Manual) Pending, Lymphocytes # 2.6, Monocytes # 0.2, Eosinophils # 0.2, Basophils # 0.0, Platelet Estimate Pending, PUBS MCHC 33.3, MCH 32.8 H, Alcohols 115 H Current Medication Orders Sig/Bee Start time Last Medication Dose Route Stop Time Status Admin Acetaminophen 500 MG ONCE ONE 06/18 2330 DCr PO 06/18 2331 Acetaminophen 500 MG ONCE ONE 06/18 2330 DCr 06/18 PO 06/18 Acetaminophen 0 .STK-MED ONE 06/18 2325 DCr PO Orders Procedure Date/time Status STABILIZE JOINT 06/19 2306 Active DIFFERENTIAL-WBC 06/18 2308 Active [id number]-3 VIEWS 06/18 2243 Active PELVIS AP ONLY 06/18 2243 Active HAND-RT 3 VIEWS 06/18 2243 Active FACIAL BONES 3 VIEWS 06/18 2243 Active CHEST(2 VIEWS-NOT PORTABLE) 06/18 2243 Active URINALYSIS/COMPLETE 06/18 2243 Active DRUG ABUSE SCREEN (TRIAGE) 06/18 2243 Active COMPLETE METABOLIC PANEL 06/18 2243 Complete CBC WITH AUTO DIFF 06/18 2243 Active ALCOHOL 06/18 2243 Complete XRAY/CT/US XRAY/CT/US XRAY chest, facial bones, hand, pelvis, shoulder XR interpretation by reviewed by me Xray Results abnormal (shoulder fx ) Departure Departure Time of Disposition 0020 Disposition DC Home or Self Care(routine) Clinical Impression Primary Impression: Shoulder fracture, right Qualifiers: Encounter type: initial encounter Fracture type: closed Qualified Code: S42.91XA - Fracture of right shoulder girdle, part unspecified, initial encounter for closed fracture Secondary Impressions: Alcohol abuse with intoxication Facial contusion Qualifiers: Encounter type: initial encounter Qualified Code: S00.83XA - Contusion of other part of head, initial encounter Fall Qualifiers: Encounter type: initial encounter Qualified Code: W19.XXXA - Unspecified fall, initial encounter Sprain, hand Qualifiers: Encounter type: initial encounter Laterality: right Qualified Code: S63.91XA - Sprain of unspecified part of right wrist and hand, initial encounter Condition STABLE Referrals Darin Burroughs MD Patient Instructions DI for Shoulder Fracture Additional Instructions ice and wear sling and see pcp and ortho for follow up Discharge Counseling Counseled pt/family regarding diagnosis, test results, medications/RX, follow up needs ED Critical Care Critical Care No at 0030
[2017-06-18 23:25] LABS: HEMOGLOBIN 12.2 g/dL (12.2-16.2); LYMPH # 2.6 K/mm3 (0.7-4.5); LYMPH % 50.6 % (10-50.0)
[2017-06-19 00:30] LABS: NEUTROPHILS 40 % (42-76); STOMATOCYTE 1+
[2017-06-19] MEDS ORDERED: NORCO 325 MG-51 TAB PO (00:33)
[2017-06-19 00:44] VITALS: BP 98/58
--- NOTE | 2017-06-19 05:23 | RADIOLOGY REPORT PS360 ---
FACIAL BONES 3 VIEWS HISTORY: Pain following injury, facial pain, soft tissue swelling fall ORDERING PHYSICIAN: Janneth Escobar MD PATIENT AGE: 46 years COMPARISON: 07/21/2015 FINDINGS: No obvious fracture or sinus air-fluid level. Lobular soft tissue density is noted in the right maxillary sinus suggesting underlying retention cyst.. IMPRESSION: 1. No acute fracture. 2. Right maxillary sinus disease
--- NOTE | 2017-06-19 05:25 | RADIOLOGY REPORT PS360 ---
[id number]-3 VIEWS HISTORY: Posttraumatic pain fall ORDERING PHYSICIAN: Janneth Escobar MD PATIENT AGE: 46 years COMPARISON: None FINDINGS: There is a comminuted fracture involving the right humeral neck with both transverse and longitudinal component. Longitudinal component involves the greater tuberosity. No evidence of dislocation. There is mild impaction of the fracture fragments and mild lateral displacement of the longitudinal fracture fragment. IMPRESSION: Comminuted right humeral neck fracture with mild displacement of the lateral fracture fragment by approximately 6 mm
--- NOTE | 2017-06-19 05:26 | RADIOLOGY REPORT PS360 ---
PELVIS AP ONLY HISTORY: Fall with injury and pain fall ORDERING PHYSICIAN: Janneth Escobar MD PATIENT AGE: 46 years COMPARISON: 04/01/2017 FINDINGS: No acute fracture or dislocation. Left femoral decompression screw with small lateral bone plate is present. There are mild osteoarthritic changes of the left hip. IMPRESSION: 1. No acute fracture. 2. Prior ORIF left hip with a gamma nail and mild osteoarthritic change
--- NOTE | 2017-06-19 05:27 | RADIOLOGY REPORT PS360 ---
HAND-RT 3 VIEWS HISTORY: Posttraumatic pain fall ORDERING PHYSICIAN: Janneth Escobar MD PATIENT AGE: 46 years COMPARISON: None FINDINGS: No fracture or dislocation. No lytic or blastic change. There is normal mineralization. The joint spaces are well-preserved. No significant degenerative/arthritic changes. No erosive changes evident. IMPRESSION: Negative, no acute finding
--- NOTE | 2017-06-19 05:43 | RADIOLOGY REPORT PS360 ---
CHEST-AP VIEW ONLY HISTORY: Posttraumatic chest pain fall ORDERING PHYSICIAN: Janneth Escobar MD PATIENT AGE: 46 years COMPARISON: 03/14/2016 FINDINGS: The cardiomediastinal silhouette and pulmonary vascularity are within normal limits. There are low lung volumes with atelectatic changes in right perihilar region and right lung base. Right humeral fracture is noted better defined on the right shoulder films. No obvious pneumothorax. IMPRESSION: Right perihilar and right lower lobe atelectasis. Right humeral neck fracture
== END 2017-06-19 00:45 | disposition home or self-care (01) ==
LOC: ER 22:31
PROVIDERS: Emergency Medicine
DX: S42.91XA Fracture of right shoulder girdle, part unspecified, initial encounter for closed fracture (principal); S00.83XA Contusion of other part of head, initial encounter; S63.91XA Sprain of unspecified part of right wrist and hand, initial encounter; F10.120 Alcohol abuse with intoxication, uncomplicated; E87.6 Hypokalemia; Z72.0 Tobacco use; W01.0XXA Fall on same level from slipping, tripping and stumbling without subsequent striking against object, initial encounter; Y92.89 Other specified places as the place of occurrence of the external cause

== ENCOUNTER → 2017-06-22 | Outpatient (CLI) | payer MEDICAID ==
--- NOTE | 2017-06-22 21:00 | RADIOLOGY REPORT PS360 ---
CT EXT.UPPER-RT-W/O CONTRAST 3-D volume reconstruction with shading HISTORY: FX PROIMAL RT HUMERUS Patient Age: 46 years: Female Ordering Physician: GENA CURRAN MD TECHNIQUE: Helical CT scanning performed through the right shoulder with multiplanar reconstructions on CT workstation. Additional 3-D volume reconstructions included as well as oblique reconstruction by Dr. Brewer on radiologist workstation COMPARISON :Plain films right shoulder 06/18/2017 FINDINGS There is a transverse fracture through the proximal humerus diametaphyseal region, at and or or just below surgical neck of the humerus . This fracture Mildly comminuted. With 5.5 mm medial onset of distal fracture fragment.. There is also a vertical fracture then through the base of the greater tuberosity. At this fracture there is 5.5 mm posterior offset of the lateral greater tuberosity fragment. Seen on the axial image set.. This fracture fragment minimally comminuted on these axial images and is nicely seen on the 3-D reconstruction volume rendering images.. The glenohumeral relationships appear normal. There is a joint effusion. The fracture passes through the base of the greater tuberosity on coronal reconstructions. To the greater tuberosity fracture IMPRESSION: 1. Fracture transversing proximal humerus at surgical neck or just inferior, with mild offset/ & displacement . Minimal comminution 2. . Fracture passing through the base of the greater tuberosity, Also mildly comminuted & with mild offset 3. Joint effusion 4. Glenohumeral joint intact.With glenoid and Humeral head intact otherwise AC joint intact
== END ==
LOC: RAD 08:00
DX: S42.201A Unspecified fracture of upper end of right humerus, initial encounter for closed fracture (principal)

== ENCOUNTER → 2017-07-01 | Outpatient (CLI) | payer MEDICAID ==
--- NOTE | 2017-07-01 15:47 | RADIOLOGY REPORT PS360 ---
[id number]-3 VIEWS COMPARISON: Right shoulder 06/18/2017 HISTORY: Follow-up fracture TECHNIQUE: 3 views right shoulder FINDINGS: The transverse fracture of the inferior humeral neck is again noted with slight lateral offset of the proximal fracture fragment in relationship to the distal humeral shaft. This offset is stable and is no significant callus formation seen as yet. There is a minimally displaced fracture through the greater tuberosity of the humeral head. The clavicle is intact and the AC joint is normal. There is a somewhat lateral downsloping acromion process. IMPRESSION: Stable transverse fracture humeral neck and stable fracture through the greater tuberosity of the humeral head
== END ==
LOC: RAD 10:51
DX: S42.201D Unspecified fracture of upper end of right humerus, subsequent encounter for fracture with routine healing (principal)

== ENCOUNTER → 2017-07-15 | Outpatient (CLI) | payer MEDICAID ==
--- NOTE | 2017-07-15 12:30 | RADIOLOGY REPORT PS360 ---
[id number] VIEWS HISTORY: Follow-up fracture FU RT HUMERUS FX ORDERING PHYSICIAN: GENA CURRAN MD PATIENT AGE: 46 years COMPARISON: 06/18/2017 FINDINGS: Healing fractures present involving the proximal aspect of the ulna as previously described with 7 mm medial displacement of the fracture fragment. Fracture line is somewhat obscured with some developing callus formation. There is good alignment. Unremarkable glenohumeral joint. IMPRESSION: Healing proximal humeral fracture
== END ==
LOC: RAD 10:19
DX: S42.201D Unspecified fracture of upper end of right humerus, subsequent encounter for fracture with routine healing (principal)

== ENCOUNTER → 2017-09-14 | Outpatient (CLI) | payer MEDICAID ==
--- NOTE | 2017-09-14 16:49 | RADIOLOGY REPORT PS360 ---
US ABD(COMPLETE-MULTI ORGANS Ordering Physician: JEANNETTE ROSENBAUM Patient Age: 46 years: Female HISTORY: ALCOHOL CIRRHOSIS TECHNIQUE: Ultrasound abdomen complete COMPARISON :Previous ultrasound abdomen 02/25/1970 CT abdomen June 2016 FINDINGS Pancreas. Unremarkable. Tail not visualized Liver. No focal lesions identified. Minor patchy fatty changes liver perhaps evident. No biliary ductal dilatation. Normal caliber and direction flow of portal vein.. Gallbladder surgically absent Right kidney normal size. : 9.5 cm x 4.1 x 54.5 cm. Normal appearance. Left kidney. 9.6 cm x 3.3 x 3.6 cm Common duct normal diameter measuring less than 3 mm Cortex adequate maintained both kidneys adequate color flow both kidneys Spleen moderate-sized 10 cm length maximally IMPRESSION: No significant new findings Gallbladder is been removed surgically. Common duct normal. No significant findings liver kidneys or pancreas. Spleen moderate size
== END ==
LOC: RAD 09-08 08:30
DX: K70.30 Alcoholic cirrhosis of liver without ascites (principal)